=== PATIENT | female | born 1945 | race Caucasian/White ===

== ENCOUNTER 2016-09-02 17:47 | Emergency (ER) | payer MEDICAID, MEDICARE, OTHER ==
[2016-09-02 18:05] VITALS: BP 159/100
--- NOTE | 2016-09-02 18:40 | EDM.PDOC ---
ED HPI HEAD INJURY - General Chief Complaint: Head Injury Stated Complaint: HEAD INJURY Time Seen by Provider: 09/02/16 18:20 Source of Information: Reports: Patient History Limitations: Reports: No limitations - History of Present Illness INITIAL COMMENTS - FREE TEXT/NARRATIVE: 71-year-old female presents for evaluation and treatment of a head injury. Reports the head injury occurred around 1600 this afternoon. Patient was at [facility] have a mammogram done. She said that she was bending over from her wheelchair to grab a magazine. She states that she tumbled out of the wheelchair and struck her head on the carpeted floor. She denies any loss of consciousness and her members the event. She denies any headache, nausea, vomiting, blurry vision, double vision, neck pain, back pain. Patient also complains of some discomfort to the right hand but states that this is just an abrasion. Patient has also noticed an abrasion and hematoma to the left forehead. Patient is on Coumadin. Most recent INR is theraputic at 2.79, 5-1-17. Patient is from the [facility]. She is a full code Location: Reports: frontal - Related Data Allergies/ADRs: Allergies Allergy/AdvReac Type Severity Reaction Status Date / Time latex Allergy Rash Verified 09/02/16 18:06 nitrofurantoin Allergy Sweating Verified 09/02/16 18:06 tree nut Allergy Swollen Verified 09/02/16 18:06 Tongue Home Meds: Home Meds Acetaminophen [Tylenol] 650 mg PO Q4H PRN 09/02/16 [History] B Complex With Vitamin C [Vitamin B-Complex with Vit C] 1 each PO DAILY [History] Calcium Carbonate/Vitamin D3 [Calcium 500 + Vit D 400] 1 each PO BID 09/02/16 [ History] [place] Tar [T-Gel] 1 applic TP ASDIRECTED 09/02/16 [History] Docusate Sodium [Colace] 100 mg PO BID 09/02/16 [History] Fructooligosaccharides/Polydex [Hyfiber with Fos Liquid Packet] 12 gm PO ASDIRECTED 09/02/16 [History] Phenytoin Sodium Extended [Dilantin] 250 mg PO BEDTIME 09/02/16 [History] Psyllium Husk [Metamucil] 1 dose PO DAILY 09/02/16 [History] Ubidecarenone [Coenzyme Q10] 100 mg PO DAILY 09/02/16 [History] Vits A and D/White Pet/Lanolin [A and D Ointment] 1 dose TP ASDIRECTED PRN 09/02 [History] Warfarin [Coumadin] 2.5 mg PO DAILY 09/02/16 [History] atorvaSTATin [Lipitor] 20 mg PO BEDTIME 09/02/16 [History] Past Medical History HEENT History: Reports: Impaired vision Cardiovascular History: Reports: Blood clots/VTE/DVT, High cholesterol, Hypertension, Other (see below) Other Cardiovascular History: anticoagulant use Genitourinary History: Reports: Retention, urinary, UTI, recurrent, Other (see below) Other Genitourinary History: obstructive and reflux uropathy Musculoskeletal History: Reports: Other (see below) Other Musculoskeletal History: spinal stenosis, hemiplegia, hemipareis Neurological History: Reports: CVA, TIA, Other (see below) Other Neuro History: epilepsy Psychiatric History: Reports: Mood swings, Other (see below) Other Psychiatric History: mood disorder Hematologic History: Reports: Other (see below) Other Hematologic History: blood thinners Dermatologic History: Reports: Other (see below) Other Dermatologic History: edema Social & Family History - Family History Family Medical History: Noncontributory - Tobacco Use Smoking Status *Q: Never Smoker - Caffeine Use Caffeine Use: Reports: Coffee - Recreational Drug Use Recreational Drug Use: No ED ROS GENERAL - Review of Systems Review Of Systems: See Below HEENT: Denies: Vision change GI/Abdominal: Denies: Nausea, Vomiting Skin: Reports: wound (abrasion to the left forehead), lumps (left forehead hematoma) Neurological: Denies: Dizziness, Headache, Syncope ED EXAM, HEAD INJURY - Physical Exam Exam: See Below Exam Limited By: No limitations General Appearance: alert, WD/WN, no apparent distress Head: scalp abrasions (right forehead 3 areas all 3 about 2-3 cm in diameter), scalp hematoma (right forehead golf ball size) Nexus Criteria: No: posterior, midline cervical tenderness, evidence of intoxication, altered level of consciousness, focal neurological deficit, painful distracting injuries Eyes: bilateral eye: EOMI, PERRL Ears: normal external exam, normal canal, hearing grossly normal, normal TMs Nose: normal inspection Throat/Mouth: Normal inspection, Normal lips, Normal teeth, Normal gums, Normal oropharynx, Normal voice, No airway compromise Neck: non-tender, full range of motion, normal alignment, normal inspection Respiratory: no respiratory distress, lungs clear, normal breath sounds Cardiovascular: normal peripheral pulses, regular rate, rhythm, no murmur Neurologic: alert, normal mood/affect, other (normal finger to nose testing, plastics plater 5/5 bilaterally) Skin: Normal color, Warm/dry, Other (abrasion with underlying hematoma to the right forehead) - Taylor Coma Score Best Eye Response (Taylor): (4) open spontaneously Best Verbal Response (Riner): (5) oriented Best Motor Response (Riner): (6) obeys commands Course - Vital Signs Last Recorded V/S: Last Vital Signs Temp 36.6 C 09/02/16 18:02 Pulse 89 09/02/16 18:02 Resp 18 09/02/16 18:02 BP 159/100 H 09/02/16 18:02 Pulse Ox 95 09/02/16 18:02 - Orders/Labs/Meds Orders: Active Orders 24 hr Category Date Time Status Head wo Cont [CT] Stat Exams 09/02/16 18:28 Ordered - Radiology Interpretation Free Text/Narrative:: CT of the head without contrast impression per vrad: no acute intracranial findings. CT Results Date: 09/02/16 - Re-Assessments/Exams Free Text/Narrative Re-Assessment/Exam: 09/02/16 19:34 I reviewed a head CT the results with the patient. She is resting comfortably. She is eating dinner. Will discharge home at this time. Departure - Departure Time of Disposition: 19:34 Disposition: Home, Self-Care 01 Condition: good Clinical Impression: Abrasion head, Hematoma Instructions: Head Injury, Adult Referrals: Aliza Bello MD [Primary Care Provider] - Forms: ED Department Discharge Additional Instructions: wash the abrasion with gentle soap and water twice a day. Apply antibacterial ointment to the wound twice a day. Continue with your current plan of care. Followup with your primary care provider as needed. Please return to the ER should your symptoms change or worsen. In particular, we would like to see you for vomiting more than 2 episodes, headaches not related by Tylenol or Motrin, seizures or any other concerning symptoms. - My Orders Last 24 Hours: My Active Orders 09/02/16 18:28 Head wo Cont [CT] Stat - Assessment/Plan Last 24 Hours: My Active Orders 09/02/16 18:28 Head wo Cont [CT] Stat
--- NOTE | 2016-09-05 10:35 | CT ---
Head CT Technique: Multiple axial sections through the brain were obtained. Intravenous contrast was not utilized. Comparison: Previous head CT exam of 03/12/12. Findings: Ventricles along with basal cisterns and sulci over the convexities are moderately prominent. Mild diminished density noted within the periventricular white matter compatible with small vessel ischemic demyelination change. No other abnormal parenchymal densities are seen. No evidence of intracranial hemorrhage. No midline shift or mass effect is seen. Slight soft tissue swelling noted within the left frontal scalp. No underlying calvarial abnormality is seen. Opacified left mastoid sinus is seen which is a chronic finding and likely represents previous surgery. Impression: 1. Incidental findings. Senescent change which appears stable from prior head CT. 2. No acute intracranial abnormality is identified on noncontrast head CT study. Diagnostic code #2 I agree with preliminary report issued by [facility] (report finalized on 09/02/16, 8:29 PM Central Time)
== END 2016-09-02 19:40 | disposition home or self-care (01) ==
LOC: JD.ED 17:47
DX: S00.03XA Contusion of scalp, initial encounter (principal); S00.81XA Abrasion of other part of head, initial encounter; W05.0XXA Fall from non-moving wheelchair, initial encounter; I10 Essential (primary) hypertension; E78.00 Pure hypercholesterolemia, unspecified; Z86.73 Personal history of transient ischemic attack (TIA), and cerebral infarction without residual deficits; Z86.718 Personal history of other venous thrombosis and embolism; Z79.01 Long term (current) use of anticoagulants; Z79.899 Other long term (current) drug therapy; Z88.8 Allergy status to other drugs, medicaments and biological substances; Z91.040 Latex allergy status
CPT/HCPCS: 70450; 70450-26; 99282; 99284-25

== ENCOUNTER 2017-04-03 08:19 | Day surgery (SDC) | payer MEDICAID ==
[~2017-04-03 08:19] MED LIST: Lactated Ringers 1,000 ML IV SCH; Lidocaine 1%/Sod Bicarbonate in NS 8.4% 1 ML Syringe IV PRN; Sodium Chloride 0.9% 10 ML Syringe FLUSH PRN
--- NOTE | 2017-04-03 09:00 | PCM.PREANE ---
Preanesthetic Assessment - Procedure Proposed Procedure: Screening Colonoscopy - Anesthesia/Transfusion/Family Hx Anesthesia History: Prior Anesthesia Without Reaction Family History of Anesthesia Reaction: No Transfusion History: No Prior Transfusion(s) Intubation History: Unknown - Review of Systems General: No Symptoms Pulmonary: No Symptoms Cardiovascular: No Symptoms, Other (Transient bradycardia during previous hospitaliziation. No problems since. ) Gastrointestinal: No Symptoms Neurological: Pre-Existing Deficit, Seizure, Difficulty Walking (Wheelchair) Other: Reports: None, Easy Bleeding, Easy Bruising - Physical Assessment NPO Status Date: 04/02/17 NPO Status Time: 22:00 Pulse: 69 O2 Sat by Pulse Oximetry: 95 Respiratory Rate: 18 Blood Pressure: 142/75 Height: 1.22 m Weight: 62.142 kg ASA Class: 2 Mental Status: Alert & Oriented x3 Airway Class: Mallampati = 3 Dentition: Reports: Partial (Upper Removed) Thyro-Mental Finger Breadths: 3 Mouth Opening Finger Breadths: 3 ROM/Head Extension: Full Lungs: Clear to Auscultation, Normal Respiratory Effort Cardiovascular: Regular Rate, Regular Rhythm - Allergies Allergies/Adverse Reactions: Allergies Allergy/AdvReac Type Severity Reaction Status Date / Time latex Allergy Rash Verified 03/31/17 14:35 nitrofurantoin Allergy Sweating Verified 03/31/17 14:35 tree nut Allergy Swollen Verified 03/31/17 14:35 Tongue - Acknowledgements Anesthesia Type Planned: MAC Pt an Appropriate Candidate for the Planned Anesthesia: Yes Alternatives and Risks of Anesthesia Discussed w Pt/Guardian: Yes Pt/Guardian Understands and Agrees with Anesthesia Plan: Yes PreAnesthesia Questionnaire HEENT History: Reports: Impaired Vision Cardiovascular History: Reports: Hypertension Other Cardiovascular History: Thrombosis, SA Node Dysfunction Other Respiratory History: Embolism Gastrointestinal History: Reports: Other (See Below) Other Gastrointestinal History: Internal Hemorrhoids, Intestinal infection related to C. Diff. Genitourinary History: Reports: Retention, Urinary, UTI, Recurrent, Other (See Below) Other Genitourinary History: obstructive and reflux uropathy Musculoskeletal History: Reports: Other (See Below) Other Musculoskeletal History: Dwarfism Neurological History: Reports: Seizure Other Neuro History: Spinal Stenosis Psychiatric History: Reports: Mood Swings, Other (See Below) Other Psychiatric History: mood disorder Other Endocrine/Metabolic History: Dwarfism Hematologic History: Reports: Other (See Below) Other Hematologic History: blood thinners Dermatologic History: Reports: Other (See Below) Other Dermatologic History: edema - Past Surgical History GI Surgical History: Reports: Colon Other Female Surgeries/Procedures: Retention of urine (does self catheterize) Musculoskeletal Surgical History: Reports: Carpal Tunnel, Other (See Below) Other Musculoskeletal Surgeries/Procedures:: Laminectomy - SUBSTANCE USE Smoking Status *Q: Never Smoker Recreational Drug Use History: No - HOME MEDS Home Medications: Home Meds Acetaminophen [Tylenol] 650 mg PO Q4H PRN 09/02/16 [History] B Complex With Vitamin C [Vitamin B-Complex with Vit C] 1 each PO DAILY [History] Calcium Carbonate/Vitamin D3 [Calcium 500 + Vit D 400] 1 each PO BID 09/02/16 [ History] Docusate Sodium [Colace] 100 mg PO BID 09/02/16 [History] Phenytoin Sodium Extended [Dilantin] 100 mg PO BEDTIME 09/02/16 [History] Ubidecarenone [Coenzyme Q10] 100 mg PO DAILY 09/02/16 [History] Warfarin [Coumadin] 2.5 mg PO DAILY 09/02/16 [History] atorvaSTATin [Lipitor] 20 mg PO BEDTIME 09/02/16 [History] Alendronate Sodium [Fosamax] 70 mg PO ASDIRECTED 03/31/17 [History] Phenytoin [Dilantin] 50 mg CHEW BEDTIME 03/31/17 [History] - CURRENT (IN HOUSE) MEDS Current Meds: Current Medications Lactated Ringer's (Ringers, Lactated) 1,000 mls @ 125 mls/hr IV ASDIRECTED HO Stop: 04/03/17 18:00 Lidocaine/Sodium Bicarbonate (Buffered Lidocaine 1% In Ns 8.4%) 0.25 ml IV ONETIME PRN PRN Reason: Prior to IV Start Stop: 04/03/17 18:00 Sodium Chloride (Saline Flush) 10 ml FLUSH ASDIRECTED PRN PRN Reason: Keep Vein Open Stop: 04/03/17 18:00
[2017-04-03] MEDS ORDERED: Propofol 200 MG/20 ML SDV ONE (10:14)
[2017-04-03] MEDS ORDERED: Midazolam 1 MG/ML 2 ML SDV ONE (10:15)
[2017-04-03] MEDS ORDERED: Lidocaine 1% 4 ML ONE (10:18)
--- NOTE | 2017-04-03 10:40 | PCM.OPNOTE ---
- General Post-Op/Procedure Note Date of Surgery/Procedure: 04/03/17 Operative Procedure(s): colonoscopy to cecum Pre Op Diagnosis: screening colonosocopy Post-Op Diagnosis: Same Anesthesia Technique: MAC Primary Surgeon: Venkat Robertson EBL in mLs: 0 Complications: None Condition: Good
[2017-04-03 11:00] VITALS: BP 94/65
--- NOTE | 2017-04-04 08:51 | OR ---
DATE OF OPERATION: 04/03/2017 SURGEON: Venkat Robertson MD PREOPERATIVE DIAGNOSIS: Screening colonoscopy. POSTOPERATIVE DIAGNOSIS: Screening colonoscopy. OPERATION PERFORMED: Colonoscopy to the cecum. FINDINGS: Normal study. RECOMMENDATIONS: Repeat colonoscopy in 10 years. ANESTHESIA: Procedure done under IV sedation. DESCRIPTION OF PROCEDURE: The patient was taken to the endoscopy room, placed in a supine position, connected to monitoring equipment, and given IV sedation. Perianal area was inspected and was normal. Rectal exam showed good sphincter tone. A video Olympus colonoscope was then introduced into the rectum and threaded up without problem to the cecum, where the appendicular orifice was seen. Prep was excellent, [place] cleansing score grade A, and the scope was slowly withdrawn showing the cecum, ascending colon, transverse colon, descending colon, sigmoid colon, and rectum. Retroflexed view was done. The patient tolerated the procedure, sent to recovery room in a stable condition, and will be followed up in the clinic as needed. ESTIMATED BLOOD LOSS: MMODAL /[id number]
== END 2017-04-03 11:50 | disposition home or self-care (01) ==
LOC: JD.SDS 08:19
PROVIDERS: ATTEND Surgery
DX: Z12.11 Encounter for screening for malignant neoplasm of colon (principal); E34.3 Short stature due to endocrine disorder; I69.951 Hemiplegia and hemiparesis following unspecified cerebrovascular disease affecting right dominant side; G40.909 Epilepsy, unspecified, not intractable, without status epilepticus; I10 Essential (primary) hypertension; M48.00 Spinal stenosis, site unspecified; F34.89 Other specified persistent mood disorders; R33.9 Retention of urine, unspecified; Z79.01 Long term (current) use of anticoagulants; Z79.83 Long term (current) use of bisphosphonates; Z79.899 Other long term (current) drug therapy; Z91.040 Latex allergy status; Z91.018 Allergy to other foods; Z88.1 Allergy status to other antibiotic agents; Z86.718 Personal history of other venous thrombosis and embolism; Z87.440 Personal history of urinary (tract) infections; Z96.0 Presence of urogenital implants; Z98.890 Other specified postprocedural states
CPT/HCPCS: 45378; J2250; J7120; 00810; J2704

== ENCOUNTER 2017-06-13 18:16 | Inpatient (IN) | payer MEDICAID, MEDICARE ==
[2017-06-13] MEDS ORDERED: Sodium Chloride 0.9% 10 ML Syringe FLUSH PRN (18:59)
[2017-06-13] MEDS ORDERED: Sodium Chloride 0.9% 1,000 ML IV ONE (18:59)
[2017-06-13] MEDS ORDERED: Acetaminophen 325 MG Tab PO ONE (21:00)
[2017-06-13] MEDS ORDERED: cefTRIAXone 1 GM in Sodium Chloride 0.9% 100 ML IV ONE (21:03)
--- NOTE | 2017-06-13 22:06 | EDM.PDOC ---
ED HPI GENERAL MEDICAL PROBLEM - General Chief Complaint: Respiratory Problem Stated Complaint: FEVER Time Seen by Provider: 06/13/17 19:05 Source of Information: Reports: Patient History Limitations: Reports: No Limitations - History of Present Illness INITIAL COMMENTS - FREE TEXT/NARRATIVE: 72-year-old female presents from [facility] for evaluation and treatment of cough and fever. Reportedly she has been ill for the last 2 to 3 days. Patient reports current symptoms of a cough, fevers, chills, fatigue, sore throat and malaise. Denies any ear pain, nausea, vomiting or abdominal pain. Reports her temperature was 104.0 at [facility]. Patient did get an influenza vaccine this season. Treatments PERSONAL CHEF: Reports: Acetaminophen Other Treatments PERSONAL CHEF: 1700 - Related Data Allergies Allergy/AdvReac Type Severity Reaction Status Date / Time latex Allergy Rash Verified 06/13/17 18:36 tree nut Allergy Swollen Verified 06/13/17 18:36 Tongue nitrofurantoin AdvReac Sweating Verified 06/13/17 18:36 Home Meds: Home Meds Acetaminophen [Tylenol] 650 mg PO Q4H PRN 09/02/16 [History] B Complex With Vitamin C [Vitamin B-Complex with Vit C] 1 each PO DAILY [History] Calcium Carbonate/Vitamin D3 [Calcium 500 + Vit D 400] 1 each PO BID 09/02/16 [ History] Docusate Sodium [Colace] 100 mg PO BID 09/02/16 [History] Ubidecarenone [Coenzyme Q10] 100 mg PO DAILY 09/02/16 [History] Warfarin [Coumadin] 2.5 mg PO SUMOTUWETHSA 09/02/16 [History] atorvaSTATin [Lipitor] 20 mg PO BEDTIME 09/02/16 [History] Phenytoin [Dilantin] 250 mg CHEW BEDTIME 03/31/17 [History] Alendronate Sodium [Fosamax] 70 mg PO WEEKLY 06/13/17 [History] Warfarin [Coumadin] 1.25 mg PO FR 06/13/17 [History] guaiFENesin/Dextromethorphan [Robitussin Cough-Chest Dm Liq] 10 ml PO ONETIME [History] Past Medical History HEENT History: Reports: Impaired Vision Cardiovascular History: Reports: Hypertension Other Cardiovascular History: Thrombosis, SA Node Dysfunction Other Respiratory History: Embolism Gastrointestinal History: Reports: Other (See Below) Other Gastrointestinal History: Internal Hemorrhoids, Intestinal infection related to C. Diff. Genitourinary History: Reports: Retention, Urinary, UTI, Recurrent, Other (See Below) Other Genitourinary History: obstructive and reflux uropathy Musculoskeletal History: Reports: Other (See Below) Other Musculoskeletal History: Dwarfism Neurological History: Reports: Seizure Other Neuro History: Spinal Stenosis Psychiatric History: Reports: Mood Swings, Other (See Below) Other Psychiatric History: mood disorder Other Endocrine/Metabolic History: Dwarfism Hematologic History: Reports: Other (See Below) Other Hematologic History: blood thinners Dermatologic History: Reports: Other (See Below) Other Dermatologic History: edema - Past Surgical History GI Surgical History: Reports: Colon Other Female Surgeries/Procedures: Retention of urine (does self catheterize) Musculoskeletal Surgical History: Reports: Carpal Tunnel, Other (See Below) Other Musculoskeletal Surgeries/Procedures:: Laminectomy Social & Family History - Family History Family Medical History: Noncontributory - Tobacco Use Smoking Status *Q: Never Smoker - Caffeine Use Caffeine Use: Reports: Coffee - Recreational Drug Use Recreational Drug Use: No Drug Use in Last 12 Months: No ED ROS GENERAL - Review of Systems Review Of Systems: See Below Constitutional: Reports: Fever, Chills, Malaise HEENT: Reports: Throat Pain. Denies: Ear Pain Respiratory: Reports: Cough, Sputum GI/Abdominal: Denies: Abdominal Pain, Nausea, Vomiting ED EXAM, GENERAL - Physical Exam Exam: See Below Exam Limited By: No Limitations General Appearance: Alert, WD/WN, Mild Distress Eye Exam: Right Eye: Conjunctival Injection Ears: Normal External Exam, Other (TMs obscured by cerumen) Nose: Normal Inspection Throat/Mouth: Normal Inspection, Normal Lips, Normal Voice, No Airway Compromise Respiratory/Chest: No Respiratory Distress Cardiovascular: Normal Peripheral Pulses, Tachycardia, Systolic Murmur (grade 2 systolic heart murmur) GI/Abdominal: Soft, Non-Tender Neurological: Alert, Oriented, Normal Cognition Psychiatric: Normal Affect, Normal Mood Skin Exam: Warm, Dry, Normal Color Course - Vital Signs Last Recorded V/S: Last Vital Signs Temp 38.7 C H 06/13/17 21:12 Pulse 110 H 06/13/17 18:36 Resp BP 110/63 06/13/17 18:36 Pulse Ox 93 L 06/13/17 18:36 - Orders/Labs/Meds Orders: Active Orders 24 hr Category Date Time Status Cardiac Monitoring [RC] . DIRECTED Care 06/13/17 18:59 Active Peripheral IV Care [RC] . DIRECTED Care 06/13/17 18:59 Active Chest 2V [CR] Stat Exams 06/13/17 18:59 Taken CULTURE BLOOD [BC] Stat Lab 06/13/17 19:15 Received CULTURE BLOOD [BC] Stat Lab 06/13/17 19:15 Received CULTURE STREP A CONFIRMATION [RM] Stat Lab 06/13/17 19:27 Results CULTURE URINE [] Stat Lab 06/13/17 22:35 Ordered STREP SCRN A RAPID W CULT CONF [] Stat Lab 06/13/17 19:27 Results Sodium Chloride 0.9% [Normal Saline] 1,000 ml Med 06/13/17 18:59 Active IV ONETIME Sodium Chloride 0.9% [Saline Flush] Med 06/13/17 18:59 Active 10 ml FLUSH ASDIRECTED PRN Blood Culture x2 Reflex Set [OM.PC] Stat Oth 06/13/17 18:59 Ordered Peripheral IV Insertion Adult [OM.PC] Routine Oth 06/13/17 18:59 Ordered Medication Orders Sodium Chloride (Normal Saline) 1,000 mls @ 100 mls/hr IV ONETIME ONE Stop: 06/14/17 04:58 Last Admin: 06/13/17 19:22 Dose: 100 mls/hr Sodium Chloride (Saline Flush) 10 ml FLUSH ASDIRECTED PRN PRN Reason: Keep Vein Open Last Admin: 06/13/17 19:22 Dose: 10 ml Labs: Laboratory Tests 06/13/17 06/13/17 06/13/17 Range/Units 19:15 19:15 19:15 WBC 12.77 H (3.98-10.04) K/mm3 RBC 4.08 (3.98-5.22) M/mm3 Hgb 12.3 (11.2-15.7) gm/L Hct 37.5 (34.1-44.9) % MCV 91.9 (79.4-94.8) fl MCH 30.1 (25.6-32.2) pg MCHC 32.8 (32.2-35.5) g/dl RDW Std Deviation 46.1 (36.4-46.3) fL Plt Count 250 (182-369) K/mm3 MPV 11.0 (9.4-12.3) fl Neutrophils % (Manual) 85 H (40-60) % Band Neutrophils % 1 (0-10) % Lymphocytes % (Manual) 6 L (20-40) % Atypical Lymphs % 0 % Monocytes % (Manual) 8 (2-10) % Eosinophils % (Manual) 0 L (0.7-5.8) % Basophils % (Manual) 0 L (0.1-1.2) Platelet Estimate Adequate Plt Morphology Comment Normal RBC Morph Comment Normal PT (8.0-13.0) SECONDS INR APTT (22-36) SECONDS Sodium 139 (136-145) mEq/L Potassium 4.3 (3.5-5.1) mEq/L Chloride 103 (98-107) mEq/L Carbon Dioxide 25 (21-32) mEq/L Anion Gap 15.3 H (5-15) BUN 24 H (7-18) mg/dL Creatinine 0.6 (0.55-1.02) mg/dL Est Cr Clr Drug Dosing 59.98 mL/min Estimated GFR (MDRD) > 60 (>60) mL/min BUN/Creatinine Ratio 40.0 H (14-18) Glucose 141 H (83-115) mg/dL Lactic Acid 1.1 (0.4-2.0) mmol/L Calcium 8.9 (8.5-10.1) mg/dL Total Bilirubin 0.5 (0.2-1.0) mg/dL AST 33 (15-37) U/L ALT 26 (14-59) U/L Alkaline Phosphatase 103 (46-116) U/L C-Reactive Protein 45.2 H* (<1.0) mg/dL Total Protein 6.7 (6.4-8.2) g/dl Albumin 2.6 L (3.4-5.0) g/dl Globulin 4.1 gm/dL Albumin/Globulin Ratio 0.6 L (1-2) Urine Color (Yellow) Urine Appearance (Clear) Urine pH (5.0-8.0) Ur Specific [place] (1.005-1.030) Urine Protein (Negative) Urine Glucose (UA) (Negative) Urine Ketones (Negative) Urine Occult Blood (Negative) Urine Nitrite (Negative) Urine Bilirubin (Negative) Urine Urobilinogen (0.2-1.0) Ur Leukocyte Esterase (Negative) Urine RBC (0-5) /hpf Urine WBC (0-5) /hpf Ur Epithelial Cells (0-5) /hpf Urine Bacteria (FEW) /hpf Urine Mucus (FEW) /hpf Mycoplasma pneumon IgM (NEGATIVE) 06/13/17 06/13/17 06/13/17 Range/Units 19:25 19:25 20:50 WBC (3.98-10.04) K/mm3 RBC (3.98-5.22) M/mm3 Hgb (11.2-15.7) gm/L Hct (34.1-44.9) % MCV (79.4-94.8) fl MCH (25.6-32.2) pg MCHC (32.2-35.5) g/dl RDW Std Deviation (36.4-46.3) fL Plt Count (182-369) K/mm3 MPV (9.4-12.3) fl Neutrophils % (Manual) (40-60) % Band Neutrophils % (0-10) % Lymphocytes % (Manual) (20-40) % Atypical Lymphs % % Monocytes % (Manual) (2-10) % Eosinophils % (Manual) (0.7-5.8) % Basophils % (Manual) (0.1-1.2) Platelet Estimate Plt Morphology Comment RBC Morph Comment PT 31.7 H (8.0-13.0) SECONDS INR 2.73 APTT 63 H (22-36) SECONDS Sodium (136-145) mEq/L Potassium (3.5-5.1) mEq/L Chloride (98-107) mEq/L Carbon Dioxide (21-32) mEq/L Anion Gap (5-15) BUN (7-18) mg/dL Creatinine (0.55-1.02) mg/dL Est Cr Clr Drug Dosing mL/min Estimated GFR (MDRD) (>60) mL/min BUN/Creatinine Ratio (14-18) Glucose (83-115) mg/dL Lactic Acid (0.4-2.0) mmol/L Calcium (8.5-10.1) mg/dL Total Bilirubin (0.2-1.0) mg/dL AST (15-37) U/L ALT (14-59) U/L Alkaline Phosphatase (46-116) U/L C-Reactive Protein (<1.0) mg/dL Total Protein (6.4-8.2) g/dl Albumin (3.4-5.0) g/dl Globulin gm/dL Albumin/Globulin Ratio (1-2) Urine Color Yellow (Yellow) Urine Appearance Slt cloudy H (Clear) Urine pH 5.5 (5.0-8.0) Ur Specific [place] 1.025 (1.005-1.030) Urine Protein 2+ H (Negative) Urine Glucose (UA) Negative (Negative) Urine Ketones Trace H (Negative) Urine Occult Blood 2+ H (Negative) Urine Nitrite Positive H (Negative) Urine Bilirubin Negative (Negative) Urine Urobilinogen 0.2 (0.2-1.0) Ur Leukocyte Esterase 1+ H (Negative) Urine RBC 10-20 H (0-5) /hpf Urine WBC 40-50 H (0-5) /hpf Ur Epithelial Cells 20-30 H (0-5) /hpf Urine Bacteria Moderate H (FEW) /hpf Urine Mucus Few (FEW) /hpf Mycoplasma pneumon IgM Negative (NEGATIVE) Meds: Medications Generic Name Dose Route Start Last Admin Trade Name Freq PRN Reason Stop Dose Admin Sodium Chloride 1,000 mls @ 100 mls/hr 06/13/17 18:59 06/13/17 19:22 Normal Saline IV 06/14/17 04:58 100 mls/hr ONETIME ONE Administration Sodium Chloride 10 ml 06/13/17 18:59 06/13/17 19:22 Saline Flush FLUSH 10 ml ASDIRECTED PRN Administration Keep Vein Open Discontinued Medications Generic Name Dose Route Start Last Admin Trade Name Freq PRN Reason Stop Dose Admin Acetaminophen 650 mg 06/13/17 21:00 06/13/17 21:12 Tylenol PO 06/13/17 21:01 650 mg NOW ONE Administration Ceftriaxone Sodium 1 gm/ 100 mls @ 200 mls/hr 06/13/17 21:03 06/13/17 21:12 Sodium Chloride IV 06/13/17 21:32 200 mls/hr ONETIME ONE Administration - Radiology Interpretation Free Text/Narrative:: chest xray shows a right lower lobe pneumonia - Re-Assessments/Exams Free Text/Narrative Re-Assessment/Exam: 06/13/17 22:01 Influenza returned negative. Rapid strep returned negative. Blood cultures are pending. UA showed a urinary tract infection. Urine culture was also sent. Given the patient's tachycardia and fever I feel she should be admitted. She does meet criteria for sepsis. Rocephin has been started. Will treat her for pneumonia and a urinary tract infection. Discussed the case with Dr. Tobias who agrees to the admission. Departure - Departure Time of Disposition: 22:12 Disposition: Admitted As Inpatient 65 Condition: Fair Clinical Impression: Pneumonia, UTI (urinary tract infection) - Discharge Information Referrals: Aliza Bello MD [Primary Care Provider] - Forms: ED Department Discharge Additional Instructions: Patient to be admitted to [facility] with telemetry under Dr. Tobias. She'll be admitted for pneumonia and a urinary tract infection rule out sepsis. - My Orders Last 24 Hours: My Active Orders 06/13/17 18:59 Cardiac Monitoring [RC] . DIRECTED Peripheral IV Care [RC] . DIRECTED Chest 2V [CR] Stat Sodium Chloride 0.9% [Normal Saline] 1,000 ml IV ONETIME Sodium Chloride 0.9% [Saline Flush] 10 ml FLUSH ASDIRECTED PRN Blood Culture x2 Reflex Set [OM.PC] Stat Peripheral IV Insertion Adult [OM.PC] Routine 06/13/17 19:15 CULTURE BLOOD [BC] Stat CULTURE BLOOD [BC] Stat 06/13/17 19:27 CULTURE STREP A CONFIRMATION [RM] Stat STREP SCRN A RAPID W CULT CONF [RM] Stat 06/13/17 22:35 CULTURE URINE [RM] Stat - Assessment/Plan Last 24 Hours: My Active Orders 06/13/17 18:59 Cardiac Monitoring [RC] . DIRECTED Peripheral IV Care [RC] . DIRECTED Chest 2V [CR] Stat Sodium Chloride 0.9% [Normal Saline] 1,000 ml IV ONETIME Sodium Chloride 0.9% [Saline Flush] 10 ml FLUSH ASDIRECTED PRN Blood Culture x2 Reflex Set [OM.PC] Stat Peripheral IV Insertion Adult [OM.PC] Routine 06/13/17 19:15 CULTURE BLOOD [BC] Stat CULTURE BLOOD [BC] Stat 06/13/17 19:27 CULTURE STREP A CONFIRMATION [RM] Stat STREP SCRN A RAPID W CULT CONF [RM] Stat 02/13/18 22:35 CULTURE URINE [RM] Stat
[2017-06-14] MEDS: Metoprolol Tartrate 5 MG/5 ML SDV IVPUSH PRN ×3 (01:57→19:39)
[2017-06-14] MEDS: Acetaminophen 325 MG Tab PO PRN ×2 (05:57→18:02)
--- NOTE | 2017-06-14 06:44 | PCM.HP ---
H&P History of Present Illness - General Date of Service: 06/14/17 Admit Problem/Dx: UTI/Pneumonia Source of Information: Patient, Other (ED records) - History of Present Illness Initial Comments - Free Text/Narative: Indira is a 72-year-old female presented via ambulance from from [facility] for evaluation and treatment of cough and fever. Reportedly she has been ill for the last 2 to 3 days. Patient reports current symptoms of a cough, fevers, chills, fatigue, sore throat and malaise. Denies any ear pain, nausea, vomiting or abdominal pain. Reports her temperature was 104.0 at [facility]. She does straight cath PRN for many years for some sort of urethral obstructive process. Evaluation in ED: Influenza returned negative. Rapid strep returned negative. Blood cultures are pending. UA showed a urinary tract infection. Urine culture was also sent. CXR reveals likely evolving pneumonia. Given the patient's tachycardia and fever and UTI she will be admitted to MST unit. She does meet criteria for sepsis. Rocephin has been started in ED. She is Full code status. Dr. Tiffany Bello is her PCP with [facility] in [place]. - Related Data Allergies/Adverse Reactions: Allergies Allergy/AdvReac Type Severity Reaction Status Date / Time latex Allergy Rash Verified 06/13/17 18:36 tree nut Allergy Swollen Verified 06/13/17 18:36 Tongue nitrofurantoin AdvReac Sweating Verified 06/13/17 18:36 Home Medications: Home Meds Acetaminophen [Tylenol] 650 mg PO Q4H PRN 09/02/16 [History] B Complex With Vitamin C [Vitamin B-Complex with Vit C] 1 each PO DAILY [History] Calcium Carbonate/Vitamin D3 [Calcium 500 + Vit D 400] 1 each PO BID 09/02/16 [ History] Docusate Sodium [Colace] 100 mg PO BID 09/02/16 [History] Ubidecarenone [Coenzyme Q10] 100 mg PO DAILY 09/02/16 [History] Warfarin [Coumadin] 2.5 mg PO SUMOTUWETHSA 09/02/16 [History] atorvaSTATin [Lipitor] 20 mg PO BEDTIME 09/02/16 [History] Phenytoin [Dilantin] 250 mg CHEW BEDTIME 03/31/17 [History] Alendronate Sodium [Fosamax] 70 mg PO WEEKLY 06/13/17 [History] Warfarin [Coumadin] 1.25 mg PO FR 06/13/17 [History] guaiFENesin/Dextromethorphan [Robitussin Cough-Chest Dm Liq] 10 ml PO ONETIME [History] Past Medical History HEENT History: Reports: Impaired Vision Cardiovascular History: Reports: Hypertension Other Cardiovascular History: Thrombosis, SA Node Dysfunction, tachy arrhythmia Respiratory History: Reports: PE Other Respiratory History: Embolism Gastrointestinal History: Reports: Other (See Below) Other Gastrointestinal History: Internal Hemorrhoids, Intestinal infection related to C. Diff. Genitourinary History: Reports: Retention, Urinary, UTI, Recurrent, Other (See Below) Other Genitourinary History: obstructive and reflux uropathy, chronic lucero Musculoskeletal History: Reports: Other (See Below) Other Musculoskeletal History: Dwarfism Neurological History: Reports: Seizure, TIA Other Neuro History: Spinal Stenosis Psychiatric History: Reports: Mood Swings, Other (See Below) Other Psychiatric History: mood disorder Other Endocrine/Metabolic History: Dwarfism Hematologic History: Reports: Other (See Below) Other Hematologic History: blood thinners Dermatologic History: Reports: Other (See Below) Other Dermatologic History: edema - Past Surgical History GI Surgical History: Reports: Colon, Colonoscopy Musculoskeletal Surgical History: Reports: Carpal Tunnel, Other (See Below) Other Musculoskeletal Surgeries/Procedures:: Laminectomy Social & Family History - Family History Family Medical History: Noncontributory - Tobacco Use Smoking Status *Q: Never Smoker Second Hand Smoke Exposure: No - Caffeine Use Caffeine Use: Reports: Coffee - Recreational Drug Use Recreational Drug Use: No Drug Use in Last 12 Months: No H&P Review of Systems - Review of Systems: Review Of Systems: See Below General: Reports: Fever (febrile overnight), Malaise, Weakness. Denies: Chills (resolved) HEENT: Reports: No Symptoms. Denies: Headaches Pulmonary: Reports: Shortness of Breath, Wheezing, Cough Cardiovascular: Reports: No Symptoms. Denies: Chest Pain Gastrointestinal: Reports: No Symptoms. Denies: Abdominal Pain, Diarrhea, Nausea, Vomiting Genitourinary: Reports: Other (lucero cath present - placed in ED) Psychiatric: Reports: No Symptoms Neurological: Reports: No Symptoms. Denies: Dizziness, Headache Exam - Exam Exam: See Below - Vital Signs Vital Signs: Last Vital Signs Temp 102.3 F H 06/14/17 05:57 Pulse 99 06/14/17 04:00 Resp 22 H 06/14/17 04:00 BP 113/59 L 06/14/17 04:00 Pulse Ox 94 L 06/14/17 04:00 Weight: 139 lb 8 oz - Exam Quality Assessment: Urinary Catheter, DVT Prophylaxis General: Alert, Cooperative HEENT: Conjunctiva Clear, EOMI, Mucosa Moist & [place], Pupils Equal Neck: Supple Lungs: Normal Respiratory Effort, Decreased Breath Sounds, Wheezing Cardiovascular: Regular Rate, Regular Rhythm, Normal S1, Normal S2 GI/Abdominal Exam: Normal Bowel Sounds, Soft, Non-Tender (Female) Exam: Deferred, Other (lucero cath) Rectal (Female) Exam: Deferred Extremities: No Pedal Edema, Normal Capillary Refill, Other (short but no edema , clubbing or cyanosis) Peripheral Pulses: 2+: Dorsalis Pedis (L), Dorsalis Pedis (R) Skin: Warm, Dry, Intact Neurological: Cranial Nerves Intact, Strength Equal Bilateral Neuro Extensive - Mental Status: Alert, Oriented x3, Normal Mood/Affect, Normal Cognition, Other (very pleasant and talkative this morning) Psychiatric: Alert, Normal Affect, Normal Mood - Patient Data Lab Results Last 24 hrs: Laboratory Results - last 24 hr 06/14/17 Range/Units 00:32 MRSA (PCR) Negative Result Diagrams: 06/14/17 05:15 06/14/17 05:15 *Q Meaningful Use (ADM) - VTE *Q VTE Criteria *Q: - Stroke *Q Stroke Criteria *Q: - AMI *Q AMI Criteria *Q: - Problem List (1) UTI (urinary tract infection) SNOMED Code(s): 43486236 ICD Code: N39.0 - URINARY TRACT INFECTION, SITE NOT SPECIFIED Status: Acute Priority: High Current Visit: Yes (2) Pneumonia SNOMED Code(s): 364272885 ICD Code: J18.9 - PNEUMONIA, UNSPECIFIED ORGANISM Status: Acute Priority : High Current Visit: Yes Qualifiers: Pneumonia type: due to unspecified organism Laterality: bilateral Lung location: lower lobe of lung Qualified Code(s): J18.9 - Pneumonia, unspecified organism (3) Febrile illness, acute SNOMED Code(s): 764914187 ICD Code: R50.9 - FEVER, UNSPECIFIED Status: Acute Priority: High Current Visit: Yes (4) Tachycardia SNOMED Code(s): 3310736 ICD Code: R00.0 - TACHYCARDIA, UNSPECIFIED Status: Acute Priority: High Current Visit: Yes (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 SNOMED Code(s): 858504355 ICD Code: Z79.01 - DETENTION (CURRENT) USE OF ANTICOAGULANTS Status: Chronic Priority: Medium Current Visit: Yes Problem List Initiated/Reviewed/Updated: Yes Orders Last 24hrs: Active Orders 24 hr Category Date Time Status Patient Status [ADT] Routine ADT 06/14/17 01:41 Active Communication Order [RC] ROUTINE Care 06/14/17 06:23 Ordered IS (RT) [RT Incentive Spirometry] [RC] Q2HWA Care 06/14/17 06:21 Ordered OT Evaluation and Treatment [CONS] Routine Cons 06/14/17 06:21 Ordered PT Evaluation and Treatment [CONS] Routine Cons 06/14/17 06:21 Ordered BASIC METABOLIC PANEL,BMP [CHEM] DAILY Lab 06/15/17 05:00 Ordered BASIC METABOLIC PANEL,BMP [CHEM] DAILY Lab 06/16/17 05:00 Ordered BASIC METABOLIC PANEL,BMP [CHEM] DAILY Lab 06/17/17 05:00 Ordered BASIC METABOLIC PANEL,BMP [CHEM] DAILY Lab 06/18/17 05:00 Ordered C-REACTIVE PROTEIN [CHEM] DAILY Lab 06/15/17 05:00 Ordered C-REACTIVE PROTEIN [CHEM] DAILY Lab 06/16/17 05:00 Ordered C-REACTIVE PROTEIN [CHEM] DAILY Lab 06/17/17 05:00 Ordered C-REACTIVE PROTEIN [CHEM] DAILY Lab 06/18/17 05:00 Ordered C-REACTIVE PROTEIN [CHEM] Routine Lab 06/14/17 05:00 Ordered CBC W/O DIFF,HEMOGRAM [HEME] Routine Lab 06/14/17 05:00 Ordered CBC WITH AUTO DIFF [HEME] DAILY Lab 06/15/17 05:00 Ordered CBC WITH AUTO DIFF [HEME] DAILY Lab 06/16/17 05:00 Ordered CBC WITH AUTO DIFF [HEME] DAILY Lab 06/17/17 05:00 Ordered CBC WITH AUTO DIFF [HEME] DAILY Lab 06/18/17 05:00 Ordered COMPREHENSIVE METABOLIC PN,CMP [CHEM] Routine Lab 06/14/17 05:00 Ordered DILANTIN,PHENYTOIN [CHEM] Routine Lab 06/14/17 05:00 Ordered INR,PT,PROTHROMBIN TIME [COAG] DAILY Lab 06/14/17 06:22 Ordered INR,PT,PROTHROMBIN TIME [COAG] DAILY Lab 06/15/17 06:22 Ordered INR,PT,PROTHROMBIN TIME [COAG] DAILY Lab 06/16/17 06:22 Ordered INR,PT,PROTHROMBIN TIME [COAG] DAILY Lab 06/17/17 06:22 Ordered INR,PT,PROTHROMBIN TIME [COAG] DAILY Lab 06/18/17 06:22 Ordered MAGNESIUM [CHEM] DAILY Lab 06/15/17 05:00 Ordered MAGNESIUM [CHEM] DAILY Lab 06/16/17 05:00 Ordered MAGNESIUM [CHEM] DAILY Lab 06/17/17 05:00 Ordered MAGNESIUM [CHEM] DAILY Lab 06/18/17 05:00 Ordered MAGNESIUM [CHEM] Routine Lab 06/14/17 06:16 Ordered RESPIRATORY PANEL BY PCR [MREF] Routine Lab 06/14/17 06:40 Ordered Acetaminophen [Tylenol] Med 06/14/17 05:26 Active 650 mg PO Q6H PRN Azithromycin [Zithromax] 500 mg Med 06/14/17 06:45 Ordered Sodium Chloride 0.9% [Normal Saline] 250 ml IV Q24H Docusate Sodium [Colace] Med 06/14/17 09:00 Ordered 100 mg PO BID Famotidine [Pepcid] Med 06/14/17 09:00 Ordered 20 mg PO BID Metoprolol Tartrate [Lopressor] Med 06/14/17 01:41 Active 5 mg IVPUSH Q4H PRN Phenytoin [Dilantin] Med 06/14/17 21:00 Pending 250 mg CHEW BEDTIME Saccharomyces Boulardii [Florastor] Med 06/14/17 09:00 Ordered 250 mg PO BID Sodium Chloride 0.9% @ 100 MLS/HR(1000ml Bag) Med 06/14/17 06:30 Ordered Sodium Chloride 0.9% [Normal Saline] 1,000 ml IV ASDIRECTED Vitamin B Complex with C [Super B With Vitamin C] Med 06/14/17 09:00 Ordered 1 each PO DAILY Warfarin Pharmacy to Dose [Pharmacy to Dose - Warfarin] Med 06/14/17 06:30 Ordered 1 dose .XX ASDIRECTED Warfarin [Coumadin] Med 06/16/17 06:18 Ordered 1.25 mg PO FR Warfarin [Coumadin] Med 06/14/17 06:30 Ordered 2.5 mg PO SUMOTUWETHSA atorvaSTATin Med 06/14/17 21:00 Ordered 20 mg PO BEDTIME cefTRIAXone [Rocephin] 1 gm Med 06/14/17 06:30 Ordered Sodium Chloride 0.9% [Normal Saline] 100 ml IV Q24H Resuscitation Status Routine Resus Stat 06/14/17 02:20 Ordered Medication Orders Acetaminophen (Tylenol) 650 mg PO Q6H PRN PRN Reason: fever Last Admin: 06/14/17 05:57 Dose: 650 mg Docusate Sodium (Colace) 100 mg PO BID HO Famotidine (Pepcid) 20 mg PO BID HO Ceftriaxone Sodium 1 gm/ (Sodium Chloride) 100 mls @ 200 mls/hr IV Q24H HO Sodium Chloride (Normal Saline) 1,000 mls @ 100 mls/hr IV ASDIRECTED HO Azithromycin 500 mg/ Sodium (Chloride) 250 mls @ 250 mls/hr IV Q24H HO Metoprolol Tartrate (Lopressor) 5 mg IVPUSH Q4H PRN PRN Reason: Tachycardia Last Admin: 06/14/17 01:57 Dose: 5 mg Phenytoin Sodium (Dilantin) 250 mg CHEW BEDTIME HO Saccharomyces Boulardii (Florastor) 250 mg PO BID HO Simvastatin (Zocor) 20 mg PO BEDTIME HO Sodium Chloride (Saline Flush) 10 ml FLUSH ASDIRECTED PRN PRN Reason: Keep Vein Open Last Admin: 06/13/17 19:22 Dose: 10 ml Vitamin B Complex/Vitamin C (Super B With Vitamin C) 1 cap PO DAILY HO Warfarin Sodium (Coumadin) 1.25 mg PO FR HO Warfarin Sodium (Coumadin) 2.5 mg PO SUMOTUWETHSA HO Warfarin Sodium (Pharmacy To Dose - Warfarin) 1 dose .XX ASDIRECTED [facility] Assessment/Plan Comment:: I/P: AUTI -Risk factors: self cath daily due to structural problem, immobility, [place] resident - pending -Rocephin started in ED, will continue -Cont lucero cath for now -IVF for hydration -Probiotic BID -Antipyretics PRN -Follow CRP which is significantly elevated at 45.2-->46.2 -WBC 12K-->10K Pneumonia -? early evolving on CXR; repeat CXR tomorrow -Rocephin as above, add zithromax -IVF -RT/Nebs/FV/IS -Supplemental O2 PRN to keep sats >90% Chronic:Cont home meds Dwarfism Spinal stenosis Urethral strictures- chronic lucero vs self cath HTN- stable Hx seizure disorder- cont home meds, check dilantin level Hx of mood disorder- stable Hx of PE- on chronic anticoagulation/coumadin therapy, Daily INR Hx of tachy dysrhythmia- stable, telemetry monitoring Other: GI prophylax- Pepcid DVT prophylax- on chronic coumadin therapy- cont, level is therapeutic- pharmacy to follow and dose warfarin SW for assist with DC planning---back to [facility] when ready, likely need 4 days of IV abx. Follow daily am labs PT/OT initially ordered- patient is full assist and transfer at [place] per call to [place] placed by therapy, will DC orders. Patient is Full Code status PCP is Dr. Bello with [facility].
[2017-06-14] MEDS ORDERED: Albuterol 0.083% 2.5 MG/3 ML Neb Soln NEB PRN (06:46)
--- NOTE | 2017-06-14 06:58 | CR ---
Chest: Two views of the chest were obtained. Comparison: Prior chest x-ray of 03/12/12. Heart is enlarged. Tortuous thoracic aorta is seen. Deformity is noted of both shoulders which is stable. Lungs are clear with no acute parenchymal densities. Impression: 1. Stable cardiomegaly. Nothing acute is seen. No significant change is seen from prior chest x-ray. Diagnostic code #2
[2017-06-14] MEDS: Sodium Chloride 0.9% 1,000 ML IV SCH (07:51)
[2017-06-14] MEDS: cefTRIAXone 1 GM in Sodium Chloride 0.9% 100 ML IV SCH (07:51)
[2017-06-14] MEDS: Vitamin B Complex With Vitamin C Cap PO SCH (08:05)
[2017-06-14] MEDS: Famotidine 20 MG Tab PO SCH ×2 (08:05→21:57)
[2017-06-14] MEDS: Docusate Sodium 100 MG Cap PO SCH ×2 (08:05→21:57)
[2017-06-14] MEDS: guaiFENesin 600 MG Tab.ER PO SCH ×2 (08:05→21:56)
[2017-06-14] MEDS: Saccharomyces Boulardii (Probiotic) 250 MG Cap PO SCH ×2 (08:05→21:55)
[2017-06-14] MEDS: Azithromycin 500 MG in Sodium Chloride 0.9% 250 ML IV SCH (08:39)
[2017-06-14] MEDS: Albuterol/Ipratropium 3.0-0.5 MG/3 ML Neb Soln NEB SCH ×3 (08:59→20:29)
[2017-06-14] MEDS ORDERED: Warfarin Sliding Scale PO SCH (18:00)
[2017-06-14] MEDS ORDERED: Ibuprofen 600 MG Tab PO PRN (20:30)
[2017-06-14] MEDS: Phenytoin 50 MG Tab.Chew CHEW SCH (21:55)
[2017-06-14] MEDS: Simvastatin 20 MG Tab PO SCH (21:57)
[2017-06-14] MEDS: Hypromellose 0.5% Ophth Soln 15 ML Bottle EYEBOTH PRN (22:08)
[2017-06-15] MEDS: Albuterol/Ipratropium 3.0-0.5 MG/3 ML Neb Soln NEB SCH ×4 (05:42→21:26)
[2017-06-15] MEDS: Sodium Chloride 0.9% 1,000 ML IV SCH (06:01)
[2017-06-15] MEDS: cefTRIAXone 1 GM in Sodium Chloride 0.9% 100 ML IV SCH (06:02)
[2017-06-15] MEDS: Hypromellose 0.5% Ophth Soln 15 ML Bottle EYEBOTH PRN ×3 (06:03→20:55)
[2017-06-15] MEDS: Metoprolol Tartrate 5 MG/5 ML SDV IVPUSH PRN (06:26)
--- NOTE | 2017-06-15 06:53 | PCM.PN ---
- General Info Date of Service: 06/15/17 Admission Dx/Problem (Free Text): UTI/Pneumonia Doing better. Strength overall is improving. Good appetite. Febrile last evening with t-max of 102.0 at 2130. Functional Status: Reports: Pain Controlled, Tolerating Diet, Urinating (lucero cath), Incentive Spirometry. Denies: Ambulating (nonambulatory) - Review of Systems General: Reports: Fever HEENT: Reports: No Symptoms. Denies: Headaches Pulmonary: Reports: Shortness of Breath, Cough, Sputum Cardiovascular: Reports: No Symptoms, Other (tele report from ICU, overnight was in and out of afib with rates up to 130's. Patient asymptomatic. ). Denies : Chest Pain Gastrointestinal: Reports: No Symptoms. Denies: Abdominal Pain, Diarrhea, Nausea, Vomiting Genitourinary: Reports: Other (lucero as above) Neurological: Reports: No Symptoms - Patient Data Vitals - Most Recent: Last Vital Signs Temp 98.8 F 06/15/17 04:23 Pulse 140 H 06/15/17 06:26 Resp 19 06/15/17 04:23 BP 108/74 06/15/17 06:26 Pulse Ox 94 L 06/15/17 05:42 Weight - Most Recent: 141 lb 14.4 oz I&O - Last 24 Hours: Intake & Output 06/14/17 06/14/17 06/15/17 14:59 22:59 06:59 Intake Total 120 1664 350 Output Total 250 250 Balance 120 1414 100 Lab Results Last 24 Hours: Laboratory Results - last 24 hr 06/14/17 06/14/17 06/14/17 Range/Units 05:15 05:15 05:15 WBC 10.71 H (3.98-10.04) K/mm3 RBC 3.70 L (3.98-5.22) M/mm3 Hgb 11.4 (11.2-15.7) gm/L Hct 34.5 (34.1-44.9) % MCV 93.2 (79.4-94.8) fl MCH 30.8 (25.6-32.2) pg MCHC 33.0 (32.2-35.5) g/dl RDW Std Deviation 46.3 (36.4-46.3) fL Plt Count 240 (182-369) K/mm3 MPV 11.2 (9.4-12.3) fl PT (8.0-13.0) SECONDS INR Sodium 141 (136-145) mEq/L Potassium 4.0 (3.5-5.1) mEq/L Chloride 107 (98-107) mEq/L Carbon Dioxide 21 (21-32) mEq/L Anion Gap 17.0 H (5-15) BUN 23 H (7-18) mg/dL Creatinine 0.5 L (0.55-1.02) mg/dL Est Cr Clr Drug Dosing 71.98 mL/min Estimated GFR (MDRD) > 60 (>60) mL/min BUN/Creatinine Ratio 46.0 H (14-18) Glucose 106 (83-115) mg/dL Calcium 8.1 L (8.5-10.1) mg/dL Magnesium 2.0 (1.8-2.4) mg/dl Total Bilirubin 0.3 (0.2-1.0) mg/dL AST 26 (15-37) U/L ALT 22 (14-59) U/L Alkaline Phosphatase 93 (46-116) U/L C-Reactive Protein 46.2 H* (<1.0) mg/dL Total Protein 6.1 L (6.4-8.2) g/dl Albumin 2.2 L (3.4-5.0) g/dl Globulin 3.9 gm/dL Albumin/Globulin Ratio 0.6 L (1-2) Phenytoin 11.3 (10.0-20.0) ug/mL 06/14/17 Range/Units 06:00 WBC (3.98-10.04) K/mm3 RBC (3.98-5.22) M/mm3 Hgb (11.2-15.7) gm/L Hct (34.1-44.9) % MCV (79.4-94.8) fl MCH (25.6-32.2) pg MCHC (32.2-35.5) g/dl RDW Std Deviation (36.4-46.3) fL Plt Count (182-369) K/mm3 MPV (9.4-12.3) fl PT 37.2 H (8.0-13.0) SECONDS INR 3.17 Sodium (136-145) mEq/L Potassium (3.5-5.1) mEq/L Chloride (98-107) mEq/L Carbon Dioxide (21-32) mEq/L Anion Gap (5-15) BUN (7-18) mg/dL Creatinine (0.55-1.02) mg/dL Est Cr Clr Drug Dosing mL/min Estimated GFR (MDRD) (>60) mL/min BUN/Creatinine Ratio (14-18) Glucose (83-115) mg/dL Calcium (8.5-10.1) mg/dL Magnesium (1.8-2.4) mg/dl Total Bilirubin (0.2-1.0) mg/dL AST (15-37) U/L ALT (14-59) U/L Alkaline Phosphatase (46-116) U/L C-Reactive Protein (<1.0) mg/dL Total Protein (6.4-8.2) g/dl Albumin (3.4-5.0) g/dl Globulin gm/dL Albumin/Globulin Ratio (1-2) Phenytoin (10.0-20.0) ug/mL Med Orders - Current: Current Medications Acetaminophen (Tylenol) 650 mg PO Q6H PRN PRN Reason: fever Last Admin: 06/14/17 18:02 Dose: 650 mg Albuterol (Proventil Neb Soln) 2.5 mg NEB Q4HRRT PRN PRN Reason: SOB/cough/wheezing Albuterol/Ipratropium (Duoneb 3.0-0.5 Mg/3 Ml) 3 ml NEB QIDRT [facility] Last Admin: 06/15/17 05:42 Dose: 3 ml Artificial Tears (Isopto Tears 0.5% Ophth Soln) 0 ml EYEBOTH Q2H PRN PRN Reason: dry/irritated eyes Last Admin: 06/15/17 06:03 Dose: 2 drop Docusate Sodium (Colace) 100 mg PO BID [facility] Last Admin: 06/14/17 21:57 Dose: 100 mg Famotidine (Pepcid) 20 mg PO BID [facility] Last Admin: 06/14/17 21:57 Dose: 20 mg Guaifenesin (Mucinex) 1,200 mg PO BID [facility] Last Admin: 06/14/17 21:56 Dose: 1,200 mg Ceftriaxone Sodium 1 gm/ (Sodium Chloride) 100 mls @ 200 mls/hr IV Q24H [facility] Last Admin: 06/15/17 06:02 Dose: 200 mls/hr Sodium Chloride (Normal Saline) 1,000 mls @ 50 mls/hr IV ASDIRECTED [facility] Last Admin: 06/15/17 06:01 Dose: 100 mls/hr Azithromycin 500 mg/ Sodium (Chloride) 250 mls @ 250 mls/hr IV Q24H [facility] Last Admin: 06/14/17 08:39 Dose: 250 mls/hr Ibuprofen (Motrin) 600 mg PO Q6H PRN PRN Reason: Fever Last Admin: 06/14/17 21:56 Dose: 600 mg Metoprolol Tartrate (Lopressor) 5 mg IVPUSH Q4H PRN PRN Reason: Tachycardia Last Admin: 06/15/17 06:26 Dose: 5 mg Phenytoin Sodium (Dilantin) 250 mg CHEW BEDTIME [facility] Last Admin: 06/14/17 21:55 Dose: 250 mg Saccharomyces Boulardii (Florastor) 250 mg PO BID [facility] Last Admin: 06/14/17 21:55 Dose: 250 mg Simvastatin (Zocor) 20 mg PO BEDTIME [facility] Last Admin: 06/14/17 21:57 Dose: 20 mg Sodium Chloride (Saline Flush) 10 ml FLUSH ASDIRECTED PRN PRN Reason: Keep Vein Open Last Admin: 06/13/17 19:22 Dose: 10 ml Vitamin B Complex/Vitamin C (Super B With Vitamin C) 1 cap PO DAILY [facility] Last Admin: 06/14/17 08:05 Dose: 1 cap Warfarin Sodium (Coumadin) 1.25 mg PO Fr@1800 [facility] Warfarin Sodium (Coumadin) 2.5 mg PO SuMoTuWeThSa@1800 [facility] Warfarin Sodium (Pharmacy To Dose - Warfarin) 0 dose .XX ASDIRECTED PRN PRN Reason: RX TO DOSE COUMADIN Discontinued Medications Acetaminophen (Tylenol) 650 mg PO NOW ONE Stop: 06/13/17 21:01 Last Admin: 06/13/17 21:12 Dose: 650 mg Sodium Chloride (Normal Saline) 1,000 mls @ 100 mls/hr IV ONETIME ONE Stop: 06/14/17 04:58 Last Admin: 06/13/17 19:22 Dose: 100 mls/hr Ceftriaxone Sodium 1 gm/ (Sodium Chloride) 100 mls @ 200 mls/hr IV ONETIME ONE Stop: 06/13/17 21:32 Last Admin: 06/13/17 21:12 Dose: 200 mls/hr Warfarin Sodium (Coumadin Sliding Scale) 0 each PO QPM HO Stop: 06/14/17 21:00 Last Admin: 06/14/17 18:02 Dose: Not Given - Exam Quality Assessment: DVT Prophylaxis General: Alert, Oriented, Cooperative, No Acute Distress HEENT: Pupils Equal, EOMI, Mucous Membr. Moist/[place] Neck: Supple Lungs: Normal Respiratory Effort, Decreased Breath Sounds, Wheezing Cardiovascular: Regular Rate, Regular Rhythm, No Murmurs GI/Abdominal Exam: Normal Bowel Sounds, Soft, Non-Tender (Female) Exam: Deferred Extremities: No Pedal Edema, Normal Capillary Refill, Other (short/dwarfism) Peripheral Pulses: 2+: Dorsalis Pedis (L), Dorsalis Pedis (R) Neurological: No New Focal Deficit Psy/Mental Status: Alert, Normal Affect, Normal Mood - Problem List & Annotations (1) UTI (urinary tract infection) SNOMED Code(s): 77928207 Code(s): N39.0 - URINARY TRACT INFECTION, SITE NOT SPECIFIED Status: Acute Priority: High Current Visit: Yes (2) Pneumonia SNOMED Code(s): 354567782 Code(s): J18.9 - PNEUMONIA, UNSPECIFIED ORGANISM Status: Acute Priority: High Current Visit: Yes Qualifiers: Pneumonia type: due to unspecified organism Laterality: bilateral Lung location: lower lobe of lung Qualified Code(s): J18.9 - Pneumonia, unspecified organism (3) Febrile illness, acute SNOMED Code(s): 984825199 Code(s): R50.9 - FEVER, UNSPECIFIED Status: Acute Priority: High Current Visit: Yes (4) Tachycardia SNOMED Code(s): 8185179 Code(s): R00.0 - TACHYCARDIA, UNSPECIFIED Status: Acute Priority: High Current Visit: Yes (5) rn long term care current use of anticoagulant therapy SNOMED Code(s): 822012538 Code(s): Z79.01 - MCFP (CURRENT) USE OF ANTICOAGULANTS Status: Chronic Priority: Medium Current Visit: Yes (6) Paroxysmal A-fib SNOMED Code(s): 657118149 Code(s): I48.0 - PAROXYSMAL ATRIAL FIBRILLATION Status: Acute Current Visit: Yes - Problem List Review Problem List Initiated/Reviewed/Updated: Yes - My Orders Last 24 Hours: My Active Orders 06/14/17 06:21 IS (RT) [RT Incentive Spirometry] [RC] Q2HWA 06/14/17 06:23 Communication Order [RC] ROUTINE 06/14/17 06:30 Sodium Chloride 0.9% [Normal Saline] 1,000 ml IV ASDIRECTED Warfarin Pharmacy to Dose [Pharmacy to Dose - Warfarin] 0 dose .XX ASDIRECTED PRN 06/14/17 06:46 RT Aerosol Therapy [RC] ASDIRECTED Albuterol [Proventil Neb Soln] 2.5 mg NEB Q4HRRT PRN 06/14/17 07:00 cefTRIAXone [Rocephin] 1 gm Sodium Chloride 0.9% [Normal Saline] 100 ml IV Q24H 06/14/17 08:00 Azithromycin [Zithromax] 500 mg Sodium Chloride 0.9% [Normal Saline] 250 ml IV Q24H 06/14/17 08:10 RESPIRATORY PANEL BY PCR [MREF] Routine 06/14/17 09:00 Docusate Sodium [Colace] 100 mg PO BID Famotidine [Pepcid] 20 mg PO BID Saccharomyces Boulardii [Florastor] 250 mg PO BID Vitamin B Complex with C [Super B With Vitamin C] 1 cap PO DAILY guaiFENesin [Mucinex] 1,200 mg PO BID 06/14/17 09:52 RT Flutter Valve Therapy [RT Acapella] [RESPCARE] Routine 06/14/17 09:53 Hypromellose [Isopto Tears 0.5% Ophth Soln] 0 ml EYEBOTH Q2H PRN 06/14/17 10:00 Albuterol/Ipratropium [DuoNeb 3.0-0.5 MG/3 ML] 3 ml NEB QIDRT 06/14/17 16:40 STREP PNEUMONIAE ANTIGEN [MREF] Routine 06/14/17 21:00 Simvastatin [Zocor] 20 mg PO BEDTIME 06/14/17 Lunch Heart Healthy Diet [DIET] 06/15/17 05:11 Chest 2V [CR] AM 06/15/17 05:33 BASIC METABOLIC PANEL,BMP [CHEM] DAILY C-REACTIVE PROTEIN [CHEM] DAILY CBC WITH AUTO DIFF [HEME] DAILY INR,PT,PROTHROMBIN TIME [COAG] DAILY MAGNESIUM [CHEM] DAILY 06/15/17 18:00 Warfarin [Coumadin] 2.5 mg PO SuMoTuWeThSa@1800 06/16/17 05:00 BASIC METABOLIC PANEL,BMP [CHEM] DAILY C-REACTIVE PROTEIN [CHEM] DAILY CBC WITH AUTO DIFF [HEME] DAILY MAGNESIUM [CHEM] DAILY 06/16/17 06:22 INR,PT,PROTHROMBIN TIME [COAG] DAILY 06/16/17 18:00 Warfarin [Coumadin] 1.25 mg PO Fr@1800 06/17/17 05:00 BASIC METABOLIC PANEL,BMP [CHEM] DAILY C-REACTIVE PROTEIN [CHEM] DAILY CBC WITH AUTO DIFF [HEME] DAILY MAGNESIUM [CHEM] DAILY 06/17/17 06:22 INR,PT,PROTHROMBIN TIME [COAG] DAILY 06/18/17 05:00 BASIC METABOLIC PANEL,BMP [CHEM] DAILY C-REACTIVE PROTEIN [CHEM] DAILY CBC WITH AUTO DIFF [HEME] DAILY MAGNESIUM [CHEM] DAILY 06/18/17 06:22 INR,PT,PROTHROMBIN TIME [COAG] DAILY - Plan Plan:: I/P: AUTI -Risk factors: self cath daily due to structural problem, immobility, [place] resident - pending -Rocephin started in ED, will continue -Cont lucero cath for now -IVF for hydration -Probiotic BID -Antipyretics PRN -Follow CRP which is significantly elevated at 45.2-->46.2 -WBC 12K-->10K Pneumonia -? early evolving on CXR; repeat CXR tomorrow -Rocephin as above, add zithromax -IVF -RT/Nebs/FV/IS -Supplemental O2 PRN to keep sats >90% Questionable Paroxysmal afib on telemetry last night -Anticoagulated chronically with coumadin for PE hx -Will start metoprolol 25mg BID--hold if HR <60 -EKG when noted afib on telemetry-- orders given to ICU nursing -Recommend DC with Holter monitor Chronic:Cont home meds Dwarfism Spinal stenosis Urethral strictures- chronic lucero vs self cath-- likely recommend lucero cath on DC HTN- stable Hx seizure disorder- cont home meds, check dilantin level= WNL, cont current dose Hx of mood disorder- stable Hx of PE- on chronic anticoagulation/coumadin therapy, Daily INR Hx of tachy dysrhythmia- stable, telemetry monitoring Other: GI prophylax- Pepcid DVT prophylax- on chronic coumadin therapy- cont, level is therapeutic- pharmacy to follow and dose warfarin SW for assist with DC planning---back to [facility] when ready, likely need 4 total days of IV abx Follow daily am labs PT/OT initially ordered- patient is full assist and transfer at [facility] per call to [place] placed by therapy, will DC orders. Patient is Full Code status PCP is Dr. Bello with [facility].
[2017-06-15] MEDS: Azithromycin 500 MG in Sodium Chloride 0.9% 250 ML IV SCH (08:32)
[2017-06-15] MEDS: Metoprolol Tartrate 25 MG Tab PO SCH ×2 (08:36→20:53)
[2017-06-15] MEDS: guaiFENesin 600 MG Tab.ER PO SCH ×2 (08:36→20:53)
[2017-06-15] MEDS: Vitamin B Complex With Vitamin C Cap PO SCH (08:36)
[2017-06-15] MEDS: Famotidine 20 MG Tab PO SCH ×2 (08:40→20:55)
[2017-06-15] MEDS: Saccharomyces Boulardii (Probiotic) 250 MG Cap PO SCH ×2 (08:40→20:55)
[2017-06-15] MEDS ORDERED: Potassium Chloride 20 MEQ Tab.ER PO ONE (08:40)
[2017-06-15] MEDS: Docusate Sodium 100 MG Cap PO SCH (08:40)
--- NOTE | 2017-06-15 10:25 | CR ---
Chest: Two views of the chest were obtained. Comparison: Prior chest x-ray of 06/13/17. Increased density is seen on current study within the posterior base most likely on the right side. This is poorly identified on frontal view. Pulmonary vessels are minimally increased which is stable. Heart is enlarged. Upper mediastinum is normal. Deformity noted of both shoulders which is stable. Impression: 1. Parenchymal density on the lateral view posteriorly within most likely the right lung. This is not well seen on frontal view. This presumably represents pneumonia. 2. Cardiomegaly and minimal increased pulmonary vessels which are stable. Diagnostic code #3
[2017-06-15] MEDS ORDERED: Warfarin Sliding Scale PO SCH (18:00)
[2017-06-15] MEDS: Phenytoin 50 MG Tab.Chew CHEW SCH (20:53)
[2017-06-15] MEDS: Simvastatin 20 MG Tab PO SCH (20:55)
[2017-06-16] MEDS: Docusate Sodium 100 MG Cap PO SCH ×3 (05:09→20:23)
[2017-06-16] MEDS: cefTRIAXone 1 GM in Sodium Chloride 0.9% 100 ML IV SCH (06:07)
[2017-06-16] MEDS: Albuterol/Ipratropium 3.0-0.5 MG/3 ML Neb Soln NEB SCH ×4 (06:19→21:03)
[2017-06-16] MEDS: Metoprolol Tartrate 5 MG/5 ML SDV IVPUSH PRN (10:24)
[2017-06-16] MEDS: Metoprolol Tartrate 25 MG Tab PO SCH ×2 (10:41→18:41)
[2017-06-16] MEDS: Saccharomyces Boulardii (Probiotic) 250 MG Cap PO SCH ×2 (10:41→20:25)
[2017-06-16] MEDS: Azithromycin 500 MG in Sodium Chloride 0.9% 250 ML IV SCH (10:41)
[2017-06-16] MEDS: Famotidine 20 MG Tab PO SCH ×2 (10:42→20:24)
[2017-06-16] MEDS: Vitamin B Complex With Vitamin C Cap PO SCH (10:42)
[2017-06-16] MEDS: guaiFENesin 600 MG Tab.ER PO SCH ×2 (10:43→20:23)
--- NOTE | 2017-06-16 11:17 | PCM.PN ---
- General Info Date of Service: 06/16/17 Admission Dx/Problem (Free Text): UTI/Pneumonia Doing better. Strength overall is improving. Good appetite. Afebrile overnight. Functional Status: Reports: Pain Controlled, Tolerating Diet, Urinating (lucero catheter ), Incentive Spirometry - Review of Systems General: Reports: No Symptoms HEENT: Reports: Other (Right eye irritation and redness from patient rubbing ) Pulmonary: Reports: Cough, Sputum Cardiovascular: Reports: No Symptoms Gastrointestinal: Reports: No Symptoms Genitourinary: Reports: No Symptoms, Other Musculoskeletal: Reports: No Symptoms Skin: Reports: No Symptoms Neurological: Reports: No Symptoms, Other Psychiatric: Reports: No Symptoms - Patient Data Vitals - Most Recent: Last Vital Signs Temp 98.4 F 06/16/17 06:14 Pulse 109 H 06/16/17 10:41 Resp 8 L 06/16/17 06:14 BP 101/50 L 06/16/17 10:41 Pulse Ox 95 06/16/17 09:04 Weight - Most Recent: 139 lb 6.4 oz I&O - Last 24 Hours: Intake & Output 06/15/17 06/16/17 06/16/17 22:59 06:59 14:59 Intake Total 650 400 0 Output Total 325 600 Balance 325 -200 0 Lab Results Last 24 Hours: Laboratory Results - last 24 hr 06/16/17 06/16/17 06/16/17 Range/Units 06:27 06:27 06:27 WBC 8.24 (3.98-10.04) K/mm3 RBC 3.78 L (3.98-5.22) M/mm3 Hgb 11.5 (11.2-15.7) gm/L Hct 35.2 (34.1-44.9) % MCV 93.1 (79.4-94.8) fl MCH 30.4 (25.6-32.2) pg MCHC 32.7 (32.2-35.5) g/dl RDW Std Deviation 47.2 H (36.4-46.3) fL Plt Count 287 (182-369) K/mm3 MPV 10.6 (9.4-12.3) fl Neut % (Auto) 65.6 (34.0-71.1) % Lymph % (Auto) 15.3 L (19.3-51.7) % [place] % (Auto) 11.7 (4.7-12.5) % Eos % (Auto) 2.7 (0.7-5.8) Baso % (Auto) 0.8 (0.1-1.2) % Neut # (Auto) 5.41 (1.56-6.13) K/mm3 Lymph # (Auto) 1.26 (1.18-3.74) K/mm3 [place] # (Auto) 0.96 H (0.24-0.36) K/mm3 Eos # (Auto) 0.22 (0.04-0.36) K/mm3 Baso # (Auto) 0.07 (0.01-0.08) K/mm3 Manual Slide Review Abnormal smear PT 19.7 H (8.0-13.0) SECONDS INR 1.74 Sodium 141 (136-145) mEq/L Potassium 3.8 (3.5-5.1) mEq/L Chloride 108 H (98-107) mEq/L Carbon Dioxide 21 (21-32) mEq/L Anion Gap 15.8 H (5-15) BUN 18 (7-18) mg/dL Creatinine 0.5 L (0.55-1.02) mg/dL Est Cr Clr Drug Dosing 71.98 mL/min Estimated GFR (MDRD) > 60 (>60) mL/min BUN/Creatinine Ratio 36.0 H (14-18) Glucose 99 (83-115) mg/dL Calcium 8.0 L (8.5-10.1) mg/dL Magnesium 2.1 (1.8-2.4) mg/dl C-Reactive Protein 22.4 H* (<1.0) mg/dL TSH 3rd Generation (0.358-3.74) uIU/mL 06/16/17 Range/Units 06:27 WBC (3.98-10.04) K/mm3 RBC (3.98-5.22) M/mm3 Hgb (11.2-15.7) gm/L Hct (34.1-44.9) % MCV (79.4-94.8) fl MCH (25.6-32.2) pg MCHC (32.2-35.5) g/dl RDW Std Deviation (36.4-46.3) fL Plt Count (182-369) K/mm3 MPV (9.4-12.3) fl Neut % (Auto) (34.0-71.1) % Lymph % (Auto) (19.3-51.7) % [place] % (Auto) (4.7-12.5) % Eos % (Auto) (0.7-5.8) Baso % (Auto) (0.1-1.2) % Neut # (Auto) (1.56-6.13) K/mm3 Lymph # (Auto) (1.18-3.74) K/mm3 [place] # (Auto) (0.24-0.36) K/mm3 Eos # (Auto) (0.04-0.36) K/mm3 Baso # (Auto) (0.01-0.08) K/mm3 Manual Slide Review PT (8.0-13.0) SECONDS INR Sodium (136-145) mEq/L Potassium (3.5-5.1) mEq/L Chloride (98-107) mEq/L Carbon Dioxide (21-32) mEq/L Anion Gap (5-15) BUN (7-18) mg/dL Creatinine (0.55-1.02) mg/dL Est Cr Clr Drug Dosing mL/min Estimated GFR (MDRD) (>60) mL/min BUN/Creatinine Ratio (14-18) Glucose (83-115) mg/dL Calcium (8.5-10.1) mg/dL Magnesium (1.8-2.4) mg/dl C-Reactive Protein (<1.0) mg/dL TSH 3rd Generation 1.579 (0.358-3.74) uIU/mL Bong Results Last 24 Hours: Microbiology 06/14/17 08:10 Respiratory Virus Panel (PCR) (BONG) - Final Nasopharyngeal Swab - Nare, Right 06/14/17 16:40 Streptococcus pneumoniae Antigen (M - Final Urine Med Orders - Current: Current Medications Acetaminophen (Tylenol) 650 mg PO Q6H PRN PRN Reason: fever Last Admin: 06/14/17 18:02 Dose: 650 mg Albuterol (Proventil Neb Soln) 2.5 mg NEB Q4HRRT PRN PRN Reason: SOB/cough/wheezing Albuterol/Ipratropium (Duoneb 3.0-0.5 Mg/3 Ml) 3 ml NEB QIDRT [facility] Last Admin: 06/16/17 09:04 Dose: 3 ml Artificial Tears (Isopto Tears 0.5% Ophth Soln) 0 ml EYEBOTH Q2H PRN PRN Reason: dry/irritated eyes Last Admin: 06/15/17 20:55 Dose: 2 drop Docusate Sodium (Colace) 100 mg PO BID [facility] Last Admin: 06/16/17 10:42 Dose: 100 mg Famotidine (Pepcid) 20 mg PO BID [facility] Last Admin: 06/16/17 10:42 Dose: 20 mg Guaifenesin (Mucinex) 1,200 mg PO BID [facility] Last Admin: 06/16/17 10:43 Dose: 1,200 mg Ceftriaxone Sodium 1 gm/ (Sodium Chloride) 100 mls @ 200 mls/hr IV Q24H [facility] Last Admin: 06/16/17 06:07 Dose: 200 mls/hr Azithromycin 500 mg/ Sodium (Chloride) 250 mls @ 250 mls/hr IV Q24H [facility] Last Admin: 06/16/17 10:41 Dose: 250 mls/hr Ibuprofen (Motrin) 600 mg PO Q6H PRN PRN Reason: Fever Last Admin: 06/14/17 21:56 Dose: 600 mg Metoprolol Tartrate (Lopressor) 5 mg IVPUSH Q4H PRN PRN Reason: Tachycardia Last Admin: 06/16/17 10:24 Dose: 5 mg Metoprolol Tartrate (Lopressor) 25 mg PO Q12HR [facility] Last Admin: 06/16/17 10:41 Dose: 25 mg Phenytoin Sodium (Dilantin) 250 mg CHEW BEDTIME [facility] Last Admin: 06/15/17 20:53 Dose: 250 mg Saccharomyces Boulardii (Florastor) 250 mg PO BID [facility] Last Admin: 06/16/17 10:41 Dose: 250 mg Simvastatin (Zocor) 20 mg PO BEDTIME [facility] Last Admin: 06/15/17 20:55 Dose: 20 mg Sodium Chloride (Saline Flush) 10 ml FLUSH ASDIRECTED PRN PRN Reason: Keep Vein Open Last Admin: 06/13/17 19:22 Dose: 10 ml Vitamin B Complex/Vitamin C (Super B With Vitamin C) 1 cap PO DAILY [facility] Last Admin: 06/16/17 10:42 Dose: 1 cap Warfarin Sodium (Pharmacy To Dose - Warfarin) 0 dose .XX ASDIRECTED PRN PRN Reason: RX TO DOSE COUMADIN Warfarin Sodium (Coumadin) 2.5 mg PO DAILY@1800 [facility] Stop: 06/16/17 21:00 Discontinued Medications Acetaminophen (Tylenol) 650 mg PO NOW ONE Stop: 06/13/17 21:01 Last Admin: 06/13/17 21:12 Dose: 650 mg Sodium Chloride (Normal Saline) 1,000 mls @ 100 mls/hr IV ONETIME ONE Stop: 06/14/17 04:58 Last Admin: 06/13/17 19:22 Dose: 100 mls/hr Ceftriaxone Sodium 1 gm/ (Sodium Chloride) 100 mls @ 200 mls/hr IV ONETIME ONE Stop: 06/13/17 21:32 Last Admin: 06/13/17 21:12 Dose: 200 mls/hr Sodium Chloride (Normal Saline) 1,000 mls @ 50 mls/hr IV ASDIRECTED [facility] Last Admin: 06/15/17 06:01 Dose: 100 mls/hr Potassium Chloride (Klor-Con M20) 40 meq PO ONETIME ONE Stop: 06/15/17 08:41 Last Admin: 06/15/17 08:40 Dose: 40 meq Warfarin Sodium (Coumadin) 1.25 mg PO Fr@1800 HO Warfarin Sodium (Coumadin) 2.5 mg PO SuMoTuWeThSa@1800 HO Warfarin Sodium (Coumadin Sliding Scale) 0 each PO QPM [facility] Stop: 06/14/17 21:00 Last Admin: 06/14/17 18:02 Dose: Not Given Warfarin Sodium (Coumadin Sliding Scale) 0 each PO QPM HO Stop: 06/15/17 21:00 Last Admin: 06/15/17 17:40 Dose: Not Given - Exam Quality Assessment: Urine Catheter, DVT Prophylaxis General: Alert, Oriented, Cooperative HEENT: Pupils Equal, Pupils Reactive, Other (right eye injected sclera and subconjunctival hemorrhage ) Neck: Supple Lungs: Decreased Breath Sounds (posterior diminished throughout bilateral) Cardiovascular: Irregular Rhythm, Tachycardia GI/Abdominal Exam: Normal Bowel Sounds, Soft, Non-Tender (Female) Exam: Deferred Extremities: Normal Inspection, Non-Tender, No Pedal Edema, Normal Capillary Refill Peripheral Pulses: 2+: Dorsalis Pedis (L), Dorsalis Pedis (R), 3+: Radial (L), Radial (R) Skin: Warm, Dry, Intact Neurological: No New Focal Deficit, Normal Speech, Normal Tone, Strength Equal Bilateral Psy/Mental Status: Alert, Normal Affect, Normal Mood EKG INTERPRETATION EKG Date: 06/16/17 Time: 10:15 Rhythm: A-Fib Rate (Beats/Min): 148 Comparison: Change From Previous EKG - Problem List & Annotations (1) UTI (urinary tract infection) SNOMED Code(s): 96251791 Code(s): N39.0 - URINARY TRACT INFECTION, SITE NOT SPECIFIED Status: Acute Priority: High Current Visit: Yes (2) Pneumonia SNOMED Code(s): 165665963 Code(s): J18.9 - PNEUMONIA, UNSPECIFIED ORGANISM Status: Acute Priority: High Current Visit: Yes Qualifiers: Pneumonia type: due to unspecified organism Laterality: bilateral Lung location: lower lobe of lung Qualified Code(s): J18.9 - Pneumonia, unspecified organism (3) Febrile illness, acute SNOMED Code(s): 323788010 Code(s): R50.9 - FEVER, UNSPECIFIED Status: Resolved Priority: High Current Visit: Yes (4) Tachycardia SNOMED Code(s): 1017724 Code(s): R00.0 - TACHYCARDIA, UNSPECIFIED Status: Acute Priority: High Current Visit: Yes (5) long term current use of anticoagulant therapy SNOMED Code(s): 509414213 Code(s): Z79.01 - T[employer] 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 (CURRENT) USE OF ANTICOAGULANTS Status: Chronic Priority: Medium Current Visit: Yes (6) Paroxysmal A-fib SNOMED Code(s): 686933625 Code(s): I48.0 - PAROXYSMAL ATRIAL FIBRILLATION Status: Acute Priority: High Current Visit: Yes (7) Subconjunctival hemorrhage of right eye SNOMED Code(s): 39539807 Code(s): H11.31 - CONJUNCTIVAL HEMORRHAGE, RIGHT EYE Status: Acute Priority: High Current Visit: Yes - Problem List Review Problem List Initiated/Reviewed/Updated: Yes - My Orders Last 24 Hours: My Active Orders 06/16/17 11:09 TROPONIN I [CHEM] Routine 06/16/17 18:00 Warfarin [Coumadin] 2.5 mg PO DAILY@1800 06/17/17 05:00 BASIC METABOLIC PANEL,BMP [CHEM] DAILY C-REACTIVE PROTEIN [CHEM] DAILY CBC WITH AUTO DIFF [HEME] DAILY MAGNESIUM [CHEM] DAILY 06/17/17 05:11 Chest 2V [CR] AM 06/17/17 06:22 INR,PT,PROTHROMBIN TIME [COAG] DAILY 06/18/17 05:00 BASIC METABOLIC PANEL,BMP [CHEM] DAILY C-REACTIVE PROTEIN [CHEM] DAILY CBC WITH AUTO DIFF [HEME] DAILY MAGNESIUM [CHEM] DAILY 06/18/17 06:22 INR,PT,PROTHROMBIN TIME [COAG] DAILY - Plan Plan:: I/P: AUTI -Risk factors: self cath daily due to structural problem, immobility, [place] -UC Klebsiella sensitive to rocephin, will cont. -Cont lucero cath, changed 06/14 after antibiotics -IVF for hydration, restart today -Probiotic BID -Antipyretics PRN -Follow CRP which is significantly elevated at 45.2-->46.2--> 22.4 -WBC 12K-->10K Pneumonia -? early evolving on CXR; repeat CXR with evidence of right infiltrate -Rocephin and zithromax -IVF as above -RT/Nebs/FV/IS -Supplemental O2 PRN to keep sats >90% -Resp. viral panel, mycoplasma, and strep pneumonia negative Questionable Paroxysmal afib on telemetry last night - confirmed this morning with EKG showing a-fib with RVR of 148 -Anticoagulated chronically with coumadin for PE hx INR 1.74, pharmacy to dose coumadin -Will start metoprolol 25mg BID--hold if HR <60 -prn IV lopressor push -Recommend DC with Holter monitor -TSH check 1.579 Subconjunctival hemorrhage- rt eye -Likely due to coughing -Moisturizing eye drops ordered, initially PRN, eye is still feeling very itching/irritated- will schedule Q4hrs for comfort. -Do not feel this is anything infectious as left eye is WNL. Chronic:Cont home meds Dwarfism Spinal stenosis Urethral strictures- chronic lucero HTN- stable Hx seizure disorder- cont home meds, check dilantin level= WNL, cont current dose Hx of mood disorder- stable Hx of PE- on chronic anticoagulation/coumadin therapy, Daily INR Hx of tachy dysrhythmia- telemetry monitoring, a-fib as noted above Other: GI prophylax- Pepcid DVT prophylax- on chronic coumadin therapy- cont, level is therapeutic- pharmacy to follow and dose warfarin SW for assist with DC planning---back to [facility] when ready, likely need 4 total days of IV abx---likely DC in 1-2 more days. Follow daily am labs PT/OT initially ordered- patient is full assist and transfer [place] call to [place] placed by therapy, will DC orders. Patient is Full Code status PCP is Dr. Bello with [facility]. Note completed by Frannie Mas NP student agree with above noted assessment and POC--Bam Garzon PA-C
[2017-06-16] MEDS: Hypromellose 0.5% Ophth Soln 15 ML Bottle EYEBOTH SCH ×3 (12:48→18:41)
[2017-06-16] MEDS ORDERED: Warfarin 2.5 MG Tab PO SCH ×2 (18:00)
[2017-06-16] MEDS: Phenytoin 50 MG Tab.Chew CHEW SCH (20:23)
[2017-06-16] MEDS: Simvastatin 20 MG Tab PO SCH (20:23)
[2017-06-17] MEDS: Hypromellose 0.5% Ophth Soln 15 ML Bottle EYEBOTH SCH ×7 (01:11→22:39)
[2017-06-17] MEDS: Metoprolol Tartrate 25 MG Tab PO SCH ×3 (04:26→18:34)
[2017-06-17] MEDS: Albuterol/Ipratropium 3.0-0.5 MG/3 ML Neb Soln NEB SCH ×4 (05:54→20:19)
[2017-06-17] MEDS: cefTRIAXone 1 GM in Sodium Chloride 0.9% 100 ML IV SCH (06:17)
--- NOTE | 2017-06-17 08:31 | CR ---
Chest: AP and lateral views of the chest were obtained. Comparison: Prior chest x-ray of 06/15/17. Heart is enlarged. Tortuous thoracic aorta is seen. Lung markings are diffusely increased which appears stable. Slightly better aeration of the right lung base is seen on the lateral view from prior exam is seen. Bony structures are osteopenic. Bony structures appear stable. Impression: 1. Better aeration of the right lung base from prior chest x-ray. 2. Other portions of the chest are stable from previous exam. Diagnostic code #2
[2017-06-17] MEDS: Docusate Sodium 100 MG Cap PO SCH ×2 (08:51→22:24)
[2017-06-17] MEDS: Vitamin B Complex With Vitamin C Cap PO SCH (08:51)
[2017-06-17] MEDS: Famotidine 20 MG Tab PO SCH ×2 (08:52→22:24)
[2017-06-17] MEDS: Saccharomyces Boulardii (Probiotic) 250 MG Cap PO SCH ×2 (08:52→22:25)
[2017-06-17] MEDS: Azithromycin 500 MG in Sodium Chloride 0.9% 250 ML IV SCH (08:54)
[2017-06-17] MEDS: guaiFENesin 600 MG Tab.ER PO SCH ×2 (08:56→22:23)
--- NOTE | 2017-06-17 14:52 | PCM.PN ---
- General Info Date of Service: 06/17/17 Functional Status: Reports: Pain Controlled, Tolerating Diet, Ambulating, Urinating - Review of Systems General: Reports: No Symptoms HEENT: Reports: No Symptoms Pulmonary: Reports: No Symptoms Cardiovascular: Reports: No Symptoms Gastrointestinal: Reports: No Symptoms Genitourinary: Reports: No Symptoms Musculoskeletal: Reports: No Symptoms Skin: Reports: No Symptoms Neurological: Reports: No Symptoms Psychiatric: Reports: No Symptoms - Patient Data Vitals - Most Recent: Last Vital Signs Temp 36.7 C 06/17/17 11:20 Pulse 83 06/17/17 12:02 Resp 20 06/17/17 08:30 BP 125/75 06/17/17 12:02 Pulse Ox 97 06/17/17 11:20 Weight - Most Recent: 64.728 kg I&O - Last 24 Hours: Intake & Output 06/16/17 06/17/17 06/17/17 22:59 06:59 14:59 Intake Total 1970 700 240 Output Total 550 475 Balance 1420 225 240 Lab Results Last 24 Hours: Laboratory Results - last 24 hr 06/17/17 06/17/17 06/17/17 Range/Units 06:24 06:24 06:24 WBC 8.22 (3.98-10.04) K/mm3 RBC 3.82 L (3.98-5.22) M/mm3 Hgb 11.6 (11.2-15.7) gm/L Hct 35.4 (34.1-44.9) % MCV 92.7 (79.4-94.8) fl MCH 30.4 (25.6-32.2) pg MCHC 32.8 (32.2-35.5) g/dl RDW Std Deviation 47.7 H (36.4-46.3) fL Plt Count 316 (182-369) K/mm3 MPV 10.1 (9.4-12.3) fl Neut % (Auto) 60.9 (34.0-71.1) % Lymph % (Auto) 20.4 (19.3-51.7) % [place] % (Auto) 10.1 (4.7-12.5) % Eos % (Auto) 2.7 (0.7-5.8) Baso % (Auto) 0.9 (0.1-1.2) % Neut # (Auto) 5.01 (1.56-6.13) K/mm3 Lymph # (Auto) 1.68 (1.18-3.74) K/mm3 [place] # (Auto) 0.83 H (0.24-0.36) K/mm3 Eos # (Auto) 0.22 (0.04-0.36) K/mm3 Baso # (Auto) 0.07 (0.01-0.08) K/mm3 Manual Slide Review Abnormal smear PT 15.9 H (8.0-13.0) SECONDS INR 1.43 Sodium 142 (136-145) mEq/L Potassium 3.9 (3.5-5.1) mEq/L Chloride 110 H (98-107) mEq/L Carbon Dioxide 23 (21-32) mEq/L Anion Gap 12.9 (5-15) BUN 14 (7-18) mg/dL Creatinine 0.5 L (0.55-1.02) mg/dL Est Cr Clr Drug Dosing 71.98 mL/min Estimated GFR (MDRD) > 60 (>60) mL/min BUN/Creatinine Ratio 28.0 H (14-18) Glucose 92 (83-115) mg/dL Calcium 8.3 L (8.5-10.1) mg/dL Magnesium 2.1 (1.8-2.4) mg/dl C-Reactive Protein 13.8 H* (<1.0) mg/dL Med Orders - Current: Current Medications Acetaminophen (Tylenol) 650 mg PO Q6H PRN PRN Reason: fever Last Admin: 06/14/17 18:02 Dose: 650 mg Albuterol (Proventil Neb Soln) 2.5 mg NEB Q4HRRT PRN PRN Reason: SOB/cough/wheezing Albuterol/Ipratropium (Duoneb 3.0-0.5 Mg/3 Ml) 3 ml NEB QIDRT [facility] Last Admin: 06/17/17 09:13 Dose: 3 ml Artificial Tears (Isopto Tears 0.5% Ophth Soln) 0 ml EYEBOTH Q4H [facility] Last Admin: 06/17/17 12:03 Dose: 2 drop Docusate Sodium (Colace) 100 mg PO BID [facility] Last Admin: 06/17/17 08:51 Dose: 100 mg Famotidine (Pepcid) 20 mg PO BID [facility] Last Admin: 06/17/17 08:52 Dose: 20 mg Guaifenesin (Mucinex) 1,200 mg PO BID [facility] Last Admin: 06/17/17 08:56 Dose: 1,200 mg Ceftriaxone Sodium 1 gm/ (Sodium Chloride) 100 mls @ 200 mls/hr IV Q24H [facility] Last Admin: 06/17/17 06:17 Dose: 200 mls/hr Azithromycin 500 mg/ Sodium (Chloride) 250 mls @ 250 mls/hr IV Q24H [facility] Last Admin: 06/17/17 08:54 Dose: 250 mls/hr Ibuprofen (Motrin) 600 mg PO Q6H PRN PRN Reason: Fever Last Admin: 06/14/17 21:56 Dose: 600 mg Metoprolol Tartrate (Lopressor) 5 mg IVPUSH Q4H PRN PRN Reason: Tachycardia Last Admin: 06/16/17 10:24 Dose: 5 mg Metoprolol Tartrate (Lopressor) 25 mg PO Q8H [facility] Last Admin: 06/17/17 12:02 Dose: 25 mg Phenytoin Sodium (Dilantin) 250 mg CHEW BEDTIME [facility] Last Admin: 06/16/17 20:23 Dose: 250 mg Saccharomyces Boulardii (Florastor) 250 mg PO BID [facility] Last Admin: 06/17/17 08:52 Dose: 250 mg Simvastatin (Zocor) 20 mg PO BEDTIME [facility] Last Admin: 06/16/17 20:23 Dose: 20 mg Sodium Chloride (Saline Flush) 10 ml FLUSH ASDIRECTED PRN PRN Reason: Keep Vein Open Last Admin: 06/13/17 19:22 Dose: 10 ml Vitamin B Complex/Vitamin C (Super B With Vitamin C) 1 cap PO DAILY [facility] Last Admin: 06/17/17 08:51 Dose: 1 cap Warfarin Sodium (Pharmacy To Dose - Warfarin) 0 dose .XX ASDIRECTED PRN PRN Reason: RX TO DOSE COUMADIN Warfarin Sodium (Coumadin) 2.5 mg PO ONETIME ONE Stop: 06/17/17 18:01 Discontinued Medications Acetaminophen (Tylenol) 650 mg PO NOW ONE Stop: 06/13/17 21:01 Last Admin: 06/13/17 21:12 Dose: 650 mg Artificial Tears (Isopto Tears 0.5% Ophth Soln) 0 ml EYEBOTH Q2H PRN PRN Reason: dry/irritated eyes Last Admin: 06/15/17 20:55 Dose: 2 drop Sodium Chloride (Normal Saline) 1,000 mls @ 100 mls/hr IV ONETIME ONE Stop: 06/14/17 04:58 Last Admin: 06/13/17 19:22 Dose: 100 mls/hr Ceftriaxone Sodium 1 gm/ (Sodium Chloride) 100 mls @ 200 mls/hr IV ONETIME ONE Stop: 06/13/17 21:32 Last Admin: 06/13/17 21:12 Dose: 200 mls/hr Sodium Chloride (Normal Saline) 1,000 mls @ 50 mls/hr IV ASDIRECTED [facility] Last Admin: 06/15/17 06:01 Dose: 100 mls/hr Metoprolol Tartrate (Lopressor) 25 mg PO Q12HR [facility] Last Admin: 06/16/17 10:41 Dose: 25 mg Potassium Chloride (Klor-Con M20) 40 meq PO ONETIME ONE Stop: 06/15/17 08:41 Last Admin: 06/15/17 08:40 Dose: 40 meq Warfarin Sodium (Coumadin) 1.25 mg PO Fr@1800 HO Warfarin Sodium (Coumadin) 2.5 mg PO SuMoTuWeThSa@1800 HO Warfarin Sodium (Coumadin Sliding Scale) 0 each PO QPM [facility] Stop: 06/14/17 21:00 Last Admin: 06/14/17 18:02 Dose: Not Given Warfarin Sodium (Coumadin Sliding Scale) 0 each PO QPM [facility] Stop: 06/15/17 21:00 Last Admin: 06/15/17 17:40 Dose: Not Given Warfarin Sodium (Coumadin) 2.5 mg PO DAILY@1800 [facility] Stop: 06/16/17 21:00 Last Admin: 06/16/17 18:50 Dose: 2.5 mg - Exam Quality Assessment: Supplemental Oxygen, DVT Prophylaxis General: Alert, Oriented, Cooperative HEENT: Pupils Equal, Pupils Reactive, EOMI Neck: Trachea Midline, No JVD Lungs: Normal Respiratory Effort, Decreased Breath Sounds Cardiovascular: Regular Rate, Regular Rhythm GI/Abdominal Exam: Normal Bowel Sounds, Soft, Non-Tender, No Organomegaly, No Distention (Female) Exam: Deferred Back Exam: Normal Inspection Extremities: Normal Inspection, Normal Range of Motion Skin: Warm Neurological: No New Focal Deficit Psy/Mental Status: Alert, Normal Affect, Normal Mood - Problem List Review Problem List Initiated/Reviewed/Updated: Yes - My Orders Last 24 Hours: My Active Orders 06/17/17 10:16 EKG 12 Lead [EKG Documentation Completion] [RC] ROUTINE 06/17/17 18:00 Warfarin [Coumadin] 2.5 mg PO ONETIME ONE 06/18/17 08:00 Cephalexin [Keflex] 250 mg PO Q6HR - Plan Plan:: I/P: AUTI -Risk factors: self cath daily due to structural problem, immobility, [place] - Klebsiella sensitive to rocephin, will cont. -Cont lucero cath, changed 06/14 after antibiotics -IVF for hydration, restart today -Probiotic BID -Antipyretics PRN -Follow CRP which is significantly elevated at 45.2-->46.2--> 22.4 -WBC 12K-->10K Pneumonia -? early evolving on CXR; repeat CXR with evidence of right infiltrate -Rocephin and zithromax -IVF as above -RT/Nebs/FV/IS -Supplemental O2 PRN to keep sats >90% -Resp. viral panel, mycoplasma, and strep pneumonia negative Paroxysmal afib on telemetry last night - confirmed this morning with EKG showing a-fib with RVR of 148 -Anticoagulated chronically with coumadin for PE hx INR 1.74, pharmacy to dose coumadin -Will start metoprolol 25mg BID--hold if HR <60 -prn IV lopressor push -Recommend DC with Holter monitor -TSH check 1.579 Subconjunctival hemorrhage- rt eye--->improving -Likely due to coughing -Moisturizing eye drops ordered, initially PRN, eye is still feeling very itching/irritated- will schedule Q4hrs for comfort. -Do not feel this is anything infectious as left eye is WNL. 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 Follow daily am labs PT/OT initially ordered- patient is full assist and [place] call to [place] placed by therapy, will DC orders. Patient is Full Code status PCP is Dr. Bello with [facility]. LOS>96 hours with response to resp/urinary infections.
[2017-06-17] MEDS ORDERED: Warfarin 2.5 MG Tab PO SCH (18:00)
[2017-06-17] MEDS ORDERED: Warfarin 2.5 MG Tab PO ONE (18:00)
[2017-06-17] MEDS: Simvastatin 20 MG Tab PO SCH (22:22)
[2017-06-17] MEDS: Phenytoin 50 MG Tab.Chew CHEW SCH (22:25)
[2017-06-18] MEDS: Hypromellose 0.5% Ophth Soln 15 ML Bottle EYEBOTH SCH ×3 (03:13→11:49)
[2017-06-18] MEDS: Metoprolol Tartrate 25 MG Tab PO SCH ×2 (03:14→11:48)
--- NOTE | 2017-06-18 06:22 | PCM.DCSUM1 ---
Discharge Summary - Discharge Data Discharge Date: 06/18/17 Discharge Disposition: Home, Self-Care 01 Condition: Good - Discharge Plan Home Medications: Home Meds Acetaminophen [Tylenol] 650 mg PO Q4H PRN 09/02/16 [History] B Complex With Vitamin C [Vitamin B-Complex with Vit C] 1 each PO DAILY [History] Calcium Carbonate/Vitamin D3 [Calcium 500 + Vit D 400] 1 each PO BID 09/02/16 [ History] Docusate Sodium [Colace] 100 mg PO BID 09/02/16 [History] Ubidecarenone [Coenzyme Q10] 100 mg PO DAILY 09/02/16 [History] Warfarin [Coumadin] 2.5 mg PO SUMOTUWETHSA 09/02/16 [History] atorvaSTATin [Lipitor] 20 mg PO BEDTIME 09/02/16 [History] Phenytoin [Dilantin] 250 mg CHEW BEDTIME 03/31/17 [History] Alendronate Sodium [Fosamax] 70 mg PO WEEKLY 06/13/17 [History] Warfarin [Coumadin] 1.25 mg PO FR 06/13/17 [History] guaiFENesin/Dextromethorphan [Robitussin Cough-Chest Dm Liq] 10 ml PO ONETIME [History] Patient Handouts: Urinary Tract Infection, Adult, [id number], Community- Acquired Pneumonia, Adult, [id number] Referrals: Aliza Bello MD [Primary Care Provider] - - Patient Data Vitals - Most Recent: Last Vital Signs Temp 36.7 C 06/18/17 03:15 Pulse 78 06/18/17 03:15 Resp 14 06/18/17 03:15 BP 119/74 06/18/17 03:14 Pulse Ox 94 L 06/18/17 03:15 Weight - Most Recent: 63.911 kg I&O - Last 24 hours: Intake & Output 06/17/17 06/17/17 06/18/17 14:59 22:59 06:59 Intake Total 240 550 600 Output Total 800 900 Balance 240 -250 -300 Lab Results - Last 24 hrs: Laboratory Results - last 24 hr 06/17/17 06/17/17 06/17/17 Range/Units 06:24 06:24 06:24 WBC 8.22 (3.98-10.04) K/mm3 RBC 3.82 L (3.98-5.22) M/mm3 Hgb 11.6 (11.2-15.7) gm/L Hct 35.4 (34.1-44.9) % MCV 92.7 (79.4-94.8) fl MCH 30.4 (25.6-32.2) pg MCHC 32.8 (32.2-35.5) g/dl RDW Std Deviation 47.7 H (36.4-46.3) fL Plt Count 316 (182-369) K/mm3 MPV 10.1 (9.4-12.3) fl Neut % (Auto) 60.9 (34.0-71.1) % Lymph % (Auto) 20.4 (19.3-51.7) % Wirt % (Auto) 10.1 (4.7-12.5) % Eos % (Auto) 2.7 (0.7-5.8) Baso % (Auto) 0.9 (0.1-1.2) % Neut # (Auto) 5.01 (1.56-6.13) K/mm3 Lymph # (Auto) 1.68 (1.18-3.74) K/mm3 Wirt # (Auto) 0.83 H (0.24-0.36) K/mm3 Eos # (Auto) 0.22 (0.04-0.36) K/mm3 Baso # (Auto) 0.07 (0.01-0.08) K/mm3 Manual Slide Review Abnormal smear PT 15.9 H (8.0-13.0) SECONDS INR 1.43 Sodium 142 (136-145) mEq/L Potassium 3.9 (3.5-5.1) mEq/L Chloride 110 H (98-107) mEq/L Carbon Dioxide 23 (21-32) mEq/L Anion Gap 12.9 (5-15) BUN 14 (7-18) mg/dL Creatinine 0.5 L (0.55-1.02) mg/dL Est Cr Clr Drug Dosing 71.98 mL/min Estimated GFR (MDRD) > 60 (>60) mL/min BUN/Creatinine Ratio 28.0 H (14-18) Glucose 92 (83-115) mg/dL Calcium 8.3 L (8.5-10.1) mg/dL Magnesium 2.1 (1.8-2.4) mg/dl C-Reactive Protein 13.8 H* (<1.0) mg/dL 06/18/17 06/18/17 06/18/17 Range/Units 04:41 04:41 04:41 WBC 9.55 (3.98-10.04) K/mm3 RBC 3.82 L (3.98-5.22) M/mm3 Hgb 11.7 (11.2-15.7) gm/L Hct 35.7 (34.1-44.9) % MCV 93.5 (79.4-94.8) fl MCH 30.6 (25.6-32.2) pg MCHC 32.8 (32.2-35.5) g/dl RDW Std Deviation 47.8 H (36.4-46.3) fL Plt Count 351 (182-369) K/mm3 MPV 10.2 (9.4-12.3) fl Neut % (Auto) 64.1 (34.0-71.1) % Lymph % (Auto) 16.6 L (19.3-51.7) % Wirt % (Auto) 11.5 (4.7-12.5) % Eos % (Auto) 2.9 (0.7-5.8) Baso % (Auto) 0.6 (0.1-1.2) % Neut # (Auto) 6.11 (1.56-6.13) K/mm3 Lymph # (Auto) 1.59 (1.18-3.74) K/mm3 Wirt # (Auto) 1.10 H (0.24-0.36) K/mm3 Eos # (Auto) 0.28 (0.04-0.36) K/mm3 Baso # (Auto) 0.06 (0.01-0.08) K/mm3 Manual Slide Review PT 18.7 H (8.0-13.0) SECONDS INR 1.66 Sodium 139 (136-145) mEq/L Potassium 4.0 (3.5-5.1) mEq/L Chloride 106 (98-107) mEq/L Carbon Dioxide 23 (21-32) mEq/L Anion Gap 14.0 (5-15) BUN 16 (7-18) mg/dL Creatinine 0.5 L (0.55-1.02) mg/dL Est Cr Clr Drug Dosing 71.98 mL/min Estimated GFR (MDRD) > 60 (>60) mL/min BUN/Creatinine Ratio 32.0 H (14-18) Glucose 85 (83-115) mg/dL Calcium 8.4 L (8.5-10.1) mg/dL Magnesium 2.1 (1.8-2.4) mg/dl C-Reactive Protein 10.0 H* (<1.0) mg/dL Med Orders - Current: Current Medications Acetaminophen (Tylenol) 650 mg PO Q6H PRN PRN Reason: fever Last Admin: 06/14/17 18:02 Dose: 650 mg Albuterol (Proventil Neb Soln) 2.5 mg NEB Q4HRRT PRN PRN Reason: SOB/cough/wheezing Albuterol/Ipratropium (Duoneb 3.0-0.5 Mg/3 Ml) [address] [facility] Last Admin: 06/17/17 20:19 Dose: 3 ml Artificial Tears (Isopto Tears 0.5% Ophth Soln) [address] [facility] Last Admin: 06/18/17 03:13 Dose: 2 drop Cephalexin (Keflex) [address] [facility] Docusate Sodium (Colace) [address] [facility] Last Admin: 06/17/17 22:24 Dose: 100 mg Famotidine (Pepcid) [address] [facility] Last Admin: 06/17/17 22:24 Dose: 20 mg Guaifenesin (Mucinex) 1,[address] [facility] Last Admin: 06/17/17 22:23 Dose: 1,200 mg Azithromycin 500 mg/ Sodium (Chloride) 250 mls @ 250 mls/hr IV Q24H [facility] Last Admin: 06/17/17 08:54 Dose: 250 mls/hr Ibuprofen (Motrin) 600 mg PO Q6H PRN PRN Reason: Fever Last Admin: 06/14/17 21:56 Dose: 600 mg Metoprolol Tartrate (Lopressor) 5 mg IVPUSH Q4H PRN PRN Reason: Tachycardia Last Admin: 06/16/17 10:24 Dose: 5 mg Metoprolol Tartrate (Lopressor) [address] [facility] Last Admin: 06/18/17 03:14 Dose: 25 mg Phenytoin Sodium (Dilantin) [address] [facility] Last Admin: 06/17/17 22:25 Dose: 250 mg Saccharomyces Boulardii (Florastor) [address] [facility] Last Admin: 06/17/17 22:25 Dose: 250 mg Simvastatin (Zocor) [address] [facility] Last Admin: 06/17/17 22:22 Dose: 20 mg Sodium Chloride (Saline Flush) 10 ml FLUSH ASDIRECTED PRN PRN Reason: Keep Vein Open Last Admin: 06/13/17 19:22 Dose: 10 ml Vitamin B Complex/Vitamin C (Super B With Vitamin C) [address] [facility] Last Admin: 06/17/17 08:51 Dose: 1 cap Warfarin Sodium (Pharmacy To Dose - Warfarin) 0 dose .XX ASDIRECTED PRN PRN Reason: RX TO DOSE COUMADIN Discontinued Medications Acetaminophen (Tylenol) 650 mg PO NOW ONE Stop: 06/13/17 21:01 Last Admin: 06/13/17 21:12 Dose: 650 mg Artificial Tears (Isopto Tears 0.5% Ophth Soln) 0 ml EYEBOTH Q2H PRN PRN Reason: dry/irritated eyes Last Admin: 06/15/17 20:55 Dose: 2 drop Sodium Chloride (Normal Saline) 1,000 mls @ 100 mls/hr IV ONETIME ONE Stop: 06/14/17 04:58 Last Admin: 06/13/17 19:22 Dose: 100 mls/hr Ceftriaxone Sodium 1 gm/ (Sodium Chloride) 100 mls @ 200 mls/hr IV ONETIME ONE Stop: 06/13/17 21:32 Last Admin: 06/13/17 21:12 Dose: 200 mls/hr Ceftriaxone Sodium 1 gm/ (Sodium Chloride) 100 mls @ 200 mls/hr IV Q24H [facility] Last Admin: 06/17/17 06:17 Dose: 200 mls/hr Sodium Chloride (Normal Saline) 1,000 mls @ 50 mls/hr IV ASDIRECTED [facility] Last Admin: 06/15/17 06:01 Dose: 100 mls/hr Metoprolol Tartrate (Lopressor) [address] [facility] Last Admin: 06/16/17 10:41 Dose: 25 mg Potassium Chloride (Klor-Con M20) 40 meq PO ONETIME ONE Stop: 06/15/17 08:41 Last Admin: 06/15/17 08:40 Dose: 40 meq Warfarin Sodium (Coumadin) 1.25 mg PO Fr@1800 HO Warfarin Sodium (Coumadin) 2.5 mg PO SuMoTuWeThSa@1800 HO Warfarin Sodium (Coumadin Sliding Scale) [address] [facility] Stop: 06/14/17 21:00 Last Admin: 06/14/17 18:02 Dose: Not Given Warfarin Sodium (Coumadin Sliding Scale) [address] [facility] Stop: 06/15/17 21:00 Last Admin: 06/15/17 17:40 Dose: Not Given Warfarin Sodium (Coumadin) 2.5 mg PO DAILY@1800 [facility] Stop: 06/16/17 21:00 Last Admin: 06/16/17 18:50 Dose: 2.5 mg Warfarin Sodium (Coumadin) 2.5 mg PO ONETIME ONE Stop: 06/17/17 18:01 Last Admin: 06/17/17 18:38 Dose: 2.5 mg *Q Meaningful Use (DIS) - VTE *Q VTE Criteria *Q: - Stroke *Q Stroke Criteria *Q: - AMI *Q AMI Criteria *Q:
[2017-06-18] MEDS: Albuterol/Ipratropium 3.0-0.5 MG/3 ML Neb Soln NEB SCH ×2 (07:08→09:14)
[2017-06-18] MEDS: Vitamin B Complex With Vitamin C Cap PO SCH (08:31)
[2017-06-18] MEDS: Famotidine 20 MG Tab PO SCH (08:31)
[2017-06-18] MEDS: Cephalexin 250 MG Cap PO SCH ×2 (08:32→11:49)
[2017-06-18] MEDS: guaiFENesin 600 MG Tab.ER PO SCH (08:32)
[2017-06-18] MEDS: Docusate Sodium 100 MG Cap PO SCH (08:32)
[2017-06-18] MEDS: Saccharomyces Boulardii (Probiotic) 250 MG Cap PO SCH (08:32)
[2017-06-18] MEDS: Azithromycin 500 MG in Sodium Chloride 0.9% 250 ML IV SCH (08:33)
[2017-06-18 11:50] VITALS: BP 128/70
[2017-06-18] MEDS ORDERED: Warfarin 2.5 MG Tab PO ONE (18:00)
== END 2017-06-18 13:51 | DRG 689 ==
LOC: JD.ED 18:16 → JD.MS 06-14 00:28
PROVIDERS: ADMIT Internal Medicine Cardiovascular Disease; ATTEND Internal Medicine Cardiovascular Disease
DX: N39.0 Urinary tract infection, site not specified (principal); J18.9 Pneumonia, unspecified organism; T83.511A Infection and inflammatory reaction due to indwelling urethral catheter, initial encounter; N13.8 Other obstructive and reflux uropathy; E34.3 Short stature due to endocrine disorder; M48.00 Spinal stenosis, site unspecified; I10 Essential (primary) hypertension; G40.909 Epilepsy, unspecified, not intractable, without status epilepticus; F39 Unspecified mood [affective] disorder; Z86.718 Personal history of other venous thrombosis and embolism; Z79.01 Long term (current) use of anticoagulants; R00.0 Tachycardia, unspecified; I48.0 Paroxysmal atrial fibrillation; H11.31 Conjunctival hemorrhage, right eye; Z88.8 Allergy status to other drugs, medicaments and biological substances; Z91.040 Latex allergy status; Z91.018 Allergy to other foods; Z79.899 Other long term (current) drug therapy
CPT/HCPCS: 36415; 71046; 80053; 81001; 83605; 85025; 85610; 85730; 86140; 86738; 87040 ×2; 87081; 87086; 87430; 87804 ×2; 96361; 96365; 99284; A9270; J0696; J7030; J7040; J7050; 80048; 80185; 83735; 84443; 84484; 85027; 87088; 87186; 87486; 87581; 87633; 87641; 87798; 87899; 93005; 94640; 94667; 97110-GP; 97162-GP; 99285; J0456; J3490

== ENCOUNTER 2017-06-29 15:17 | Inpatient (IN) | payer MEDICAID ==
[2017-06-29] MEDS ORDERED: Sodium Chloride 0.9% 10 ML Syringe FLUSH PRN (16:27)
[2017-06-29] MEDS ORDERED: cefTRIAXone 1 GM in Sodium Chloride 0.9% 100 ML IV ONE (18:05)
[2017-06-29] MEDS ORDERED: Sodium Chloride 0.9% 1,000 ML IV SCH ×2 (18:15→21:00)
--- NOTE | 2017-06-29 20:21 | PCM.HP ---
H&P History of Present Illness - General Date of Service: 06/29/17 Admit Problem/Dx: Admission Diagnosis/Problem Admission Diagnosis/Problem Pneumonia Source of Information: Patient, Provider, RN, RN Notes Reviewed History Limitations: Reports: No Limitations - History of Present Illness Initial Comments - Free Text/Narative: Indira Avila is a 72 yo female who presents to our ED today (06/29/17) from [facility] with reports of a fever of 103.2. She was recently hospitalized from 06/14-06/18 with pneumonia. She was discharged home with antibiotics and finished treatment. She reportedly has had some pain in her feet over the past night. Denies chest pain, shortness of breath, cough, nausea , vomiting. She does have a chronic indwelling Lucero catheter. E temp was 38.4 Celsius. Pulse 99. Respirations 20. Blood pressure 106/60. Pulse ox 93%. Labs were obtained: 30 mL her elevated at 23.48. Hemoglobin 14.3. Hematocrit 44.1. She is normocytic. Plans were elevated at 424,000. Neutrophils were high at 79%. There is 13% band neutrophils. Sodium is 134. Potassium 3.9. Chloride 100. Carbon dioxide 26. Anion gap is on the high end of normal at 14.9. BUN is 21. Creatinine 0.9. EGFR greater than 60. Glucose is 116. Lactic acid 1.9. Calcium 9.2. Bilirubin 0.4. AST was 20, ALT 40, alkaline phosphatase 145. CRP is elevated at 15.9. Protein is 7.4. Albumin low at 3.3. UA is obtained and is positive. It shows a specific gravity of greater than or equal to 1.030. Protein is one plus. Ketones are 1+. O Molina is 2+. Nitrite is positive. Leukoesterase is one plus. Urine RBCs are 5-10. Urine W Caesar 1020. Many bacteria noted. She was started on normal saline and given Rocephin. Chest x-rays obtained shows no acute intrathoracic process with formal radiology read pending. Influenza screen is negative. Blood and urine cultures have been sent. She did have an episode of diarrhea and a C. difficile sample was sent. She carries a history of: A. fib, hypertension, SA node dysfunction, HLD, recurrent pneumonia, PE, urinary retention, recurrent UTI, chronic Lucero catheter, dwarfism, seizure, TIA, epilepsy, spinal stenosis, depression, mood swings, mood disorder, obesity. She has had a prior C. difficile infection. She is subsequently admitted to the medical floor on telemetry. She is a full code. Her PCP is Dr. Bello at [place]. - Related Data Allergies/Adverse Reactions: Allergies Allergy/AdvReac Type Severity Reaction Status Date / Time latex Allergy Rash Verified 06/13/17 18:36 tree nut Allergy Swollen Verified 06/13/17 18:36 Tongue nitrofurantoin AdvReac Sweating Verified 06/13/17 18:36 Home Medications: Home Meds Acetaminophen [Tylenol] 650 mg PO Q4H PRN 09/02/16 [History] B Complex With Vitamin C [Vitamin B-Complex with Vit C] 1 each PO DAILY [History] Calcium Carbonate/Vitamin D3 [Calcium 500 + Vit D 400] 1 each PO BID 09/02/16 [ History] Docusate Sodium [Colace] 100 mg PO BID 09/02/16 [History] Warfarin [Coumadin] 2.5 mg PO SUMOTUWETHSA 09/02/16 [History] atorvaSTATin [Lipitor] 20 mg PO BEDTIME 09/02/16 [History] Phenytoin [Dilantin] 250 mg CHEW BEDTIME 03/31/17 [History] Alendronate Sodium [Fosamax] 70 mg PO WEEKLY 06/13/17 [History] Warfarin [Coumadin] 1.25 mg PO FR 06/13/17 [History] Azithromycin [Zithromax] 250 mg PO Q24H #5 package 06/18/17 [Rx] Cephalexin [Keflex] 250 mg PO Q6HR #30 cap 06/18/17 [Rx] Hypromellose [Isopto Tears 0.5% Ophth Soln] 0.25 ml EYEBOTH Q4H #15 bottle 06/18 [Rx] Metoprolol Tartrate [Lopressor] 25 mg PO Q8H #90 tablet 06/18/17 [Rx] Saccharomyces Boulardii [Florastor] 250 mg PO BID #20 cap 06/18/17 [Rx] guaiFENesin [Mucinex] 1,200 mg PO BID #30 tab.er 06/18/17 [Rx] Past Medical History HEENT History: Reports: Impaired Vision Cardiovascular History: Reports: Hypertension Other Cardiovascular History: Thrombosis, SA Node Dysfunction, tachy arrhythmia Respiratory History: Reports: PE, Pneumonia, Recurrent Other Respiratory History: Embolism Gastrointestinal History: Reports: Other (See Below) Other Gastrointestinal History: Internal Hemorrhoids, Intestinal infection related to C. Diff. Genitourinary History: Reports: Retention, Urinary, UTI, Recurrent, Other (See Below) Other Genitourinary History: obstructive and reflux uropathy, chronic lucero Musculoskeletal History: Reports: Other (See Below) Other Musculoskeletal History: Dwarfism Neurological History: Reports: Seizure, TIA Other Neuro History: Spinal Stenosis Psychiatric History: Reports: Mood Swings, Other (See Below) Other Psychiatric History: mood disorder Other Endocrine/Metabolic History: Dwarfism Hematologic History: Reports: Other (See Below) Other Hematologic History: blood thinners Dermatologic History: Reports: Other (See Below) Other Dermatologic History: edema - Past Surgical History GI Surgical History: Reports: Colon, Colonoscopy Musculoskeletal Surgical History: Reports: Carpal Tunnel, Other (See Below) Other Musculoskeletal Surgeries/Procedures:: Laminectomy Social & Family History - Family History Family Medical History: Noncontributory - Tobacco Use Smoking Status *Q: Never Smoker Second Hand Smoke Exposure: No - Caffeine Use Caffeine Use: Reports: Soda - Recreational Drug Use Recreational Drug Use: No Drug Use in Last 12 Months: No H&P Review of Systems - Review of Systems: Review Of Systems: See Below General: Reports: Fever. Denies: Chills, Malaise, Weakness, Fatigue, Night Sweats, Decreased Appetite HEENT: Reports: No Symptoms. Denies: Dysphasia, Headaches, Rhinitis, Post Nasal Drip, Sinus Congestion, Sore Throat Pulmonary: Reports: No Symptoms. Denies: Shortness of Breath, Wheezing, Pleuritic Chest Pain, Cough, Sputum Cardiovascular: Reports: No Symptoms. Denies: Chest Pain, Palpitations, Edema, Lightheadedness Gastrointestinal: Reports: Diarrhea. Denies: Abdominal Pain, Constipation, Nausea, Vomiting Genitourinary: Reports: Retention, Other (Chronic indwelling lucero cath). Denies: Pain Musculoskeletal: Reports: No Symptoms Skin: Reports: No Symptoms Psychiatric: Reports: No Symptoms Neurological: Reports: No Symptoms Hematologic/Lymphatic: Reports: No Symptoms Immunologic: Reports: No Symptoms Exam - Exam Exam: See Below - Vital Signs Vital Signs: Last Vital Signs Temp 100.6 F 06/29/17 15:36 Pulse 103 H 06/29/17 15:36 Resp 28 H 06/29/17 15:36 BP 117/55 L 06/29/17 15:36 Pulse Ox 93 L 06/29/17 15:36 Weight: 133 lb - Exam Quality Assessment: Urinary Catheter General: Alert, Oriented, Cooperative. No: Mild Distress HEENT: PERRLA, Hearing Intact, Mucosa Moist & [place], Nares Patent, Normal Nasal Septum, Posterior Pharynx Clear, Conjunctiva Clear, EOMI, EACs Clear, TMs Clear Neck: Supple, Trachea Midline. No: JVD Lungs: Clear to Auscultation, Normal Respiratory Effort Cardiovascular: Regular Rate, Regular Rhythm GI/Abdominal Exam: Normal Bowel Sounds, Soft, Non-Tender, No Organomegaly, No Distention, No Abnormal Bruit, No Mass, Pelvis Stable (Female) Exam: Deferred Rectal (Female) Exam: Deferred Extremities: Normal Inspection, Normal Range of Motion, Non-Tender, No Pedal Edema, Normal Capillary Refill Peripheral Pulses: 2+: Radial (L), Radial (R), Posterior Tibial (L), Posterior Tibial (R), Dorsalis Pedis (L), Dorsalis Pedis (R) Skin: Warm, Dry Neurological: Cranial Nerves Intact (grossly) Neuro Extensive - Mental Status: Alert, Oriented x3, Normal Mood/Affect, Normal Cognition Psychiatric: Alert, Normal Affect, Normal Mood - Patient Data Result Diagrams: 06/30/17 05:53 06/29/17 16:50 *Q Meaningful Use (ADM) - VTE *Q VTE Criteria *Q: - Stroke *Q Stroke Criteria *Q: - AMI *Q AMI Criteria *Q: - Problem List (1) UTI (urinary tract infection) SNOMED Code(s): 75047251 ICD Code: N39.0 - URINARY TRACT INFECTION, SITE NOT SPECIFIED Status: Acute Priority: High Current Visit: Yes Qualifiers: Urinary tract infection type: acute cystitis Hematuria presence: without hematuria Qualified Code(s): N30.00 - Acute cystitis without hematuria (2) C. difficile diarrhea SNOMED Code(s): 6554378691330 ICD Code: A04.72 - ENTEROCOLITIS D/T CLOSTRIDIUM DIFFICILE, NOT SPCF RECUR Status: Acute Priority: High Current Visit: Yes (3) Fever SNOMED Code(s): 407272449 ICD Code: R50.9 - FEVER, UNSPECIFIED Status: Acute Priority: High Current Visit: Yes Qualifiers: Fever type: due to other condition Qualified Code(s): R50.81 - Fever presenting with conditions classified elsewhere (4) HTN (hypertension) SNOMED Code(s): 45407476 ICD Code: I10 - ESSENTIAL (PRIMARY) HYPERTENSION Status: Chronic Priority : Low Current Visit: No Qualifiers: Hypertension type: unspecified Qualified Code(s): I10 - Essential (primary ) hypertension (5) Urinary retention SNOMED Code(s): 376332770 ICD Code: R33.9 - RETENTION OF URINE, UNSPECIFIED Status: Chronic Priority: Medium Current Visit: Yes (6) Other specified depressive episodes SNOMED Code(s): 43618753 ICD Code: F32.89 - OTHER SPECIFIED DEPRESSIVE EPISODES Status: Chronic Priority: Low Current Visit: No (7) Dwarfism SNOMED Code(s): 779351735 ICD Code: E34.3 - SHORT STATURE DUE TO ENDOCRINE DISORDER Status: Chronic Priority: Low Current Visit: No (8) Obesity SNOMED Code(s): 162172011 ICD Code: E66.9 - OBESITY, UNSPECIFIED Status: Chronic Priority: Low Current Visit: Yes Qualifiers: Obesity type: unspecified obesity type Obesity classification: adult class 3 (BMI >= 40) Serious obesity comorbidity presence: with serious comorbidity Body mass index: BMI 40.0-44.9 Qualified Code(s): E66.9 - Obesity, unspecified; Z68.41 - Body mass index (BMI) 40.0-44.9, adult; Z68.41 - Body mass index (BMI) 40.0-44.9, adult; Z68.41 - Body mass index (BMI) 40.0-44.9, adult; Z68.41 - Body mass index (BMI) 40.0-44.9, adult (9) Paroxysmal A-fib SNOMED Code(s): 140071829 ICD Code: I48.0 - PAROXYSMAL ATRIAL FIBRILLATION Status: Chronic Priority : Medium Current Visit: No (10) half-way current use of anticoagulant therapy SNOMED Code(s): 115459052 ICD Code: Z79.01 - 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[employer] (CURRENT) USE OF ANTICOAGULANTS Status: Chronic Priority: Medium Current Visit: No Problem List Initiated/Reviewed/Updated: Yes Orders Last 24hrs: Medication Orders Sodium Chloride (Normal Saline) 1,000 mls @ 100 mls/hr IV ASDIRECTED HO Last Admin: 06/29/17 18:23 Dose: 100 mls/hr Sodium Chloride (Saline Flush) 10 ml FLUSH ASDIRECTED PRN PRN Reason: Keep Vein Open Last Admin: 06/29/17 18:11 Dose: 10 ml Assessment/Plan Comment:: I/P: Acute: AUTI: -Fever, denies other urinary symptoms -Chronic indwelling urinary catheter -History of UTI with Klebsiella sensitive to Rocephin during last visit (06/14-06/18/17) -UA positive -Culture/sensitivity pending -WBC 23.48, CRP 15.9, lactic acid 1.9 -Blood cultures pending -1 gram Rocephin given in ED - continue -Fluids as ordered -Tylenol for fever C. diff infection -Diarrhea noted in ED -History of prior C. diff -Hospitalized 06/14/17-06/18/17 for AUTI and PNA -Recently completed azithromycin and cephalexin treatment -Stool positive for c-diff -Barrier creams -Continue probiotic -Oral vancomycin -Contact precautions -IV fluids/oral hydration Chronic: A-fib - home meds HTN - home/PRN meds SA node dysfunction HLD - home meds Hx/o PE Recurrent PNA Urinary retention with chronic lucero catheter recurrent UTIs Dwarfism hx/o TIA seizures/Epilepsy- home dilantin Spinal stenosis Depression - home meds Mood disorder Obesity Dwarfism mother superior anticoagulation - continue Plan: Admit to medical floor with telemetry CM/SW for discharge planning - [facility] resident PT/OT Other orders as above Routine AM labs Home meds as ordered DVT/PE prophylaxis: Home warfarin - pharmacy to dose GI prophylaxis: Pepcid Code status: Full code; PCP: Dr. Bello at [facility]
[2017-06-29] MEDS ORDERED: Acetaminophen 325 MG Tab PO PRN (20:47)
[2017-06-29] MEDS ORDERED: Ondansetron 4 MG Tab.DIS PO PRN (20:47)
[2017-06-29] MEDS ORDERED: Ondansetron 4 MG/2 ML SDV IV PRN (20:47)
[2017-06-29] MEDS ORDERED: Bisacodyl 5 MG Tab PO PRN (20:47)
[2017-06-29] MEDS ORDERED: Acetaminophen/HYDROcodone 325-5 MG Tab PO PRN (20:47)
[2017-06-29] MEDS ORDERED: Docusate Sodium 100 MG Cap PO PRN (20:47)
[2017-06-29] MEDS ORDERED: Polyethylene Glycol 3350 Powder 17 GM Packet PO PRN (20:47)
[2017-06-29] MEDS ORDERED: Albuterol/Ipratropium 3.0-0.5 MG/3 ML Neb Soln NEB PRN (20:47)
[2017-06-29] MEDS ORDERED: Metoprolol Tartrate 5 MG/5 ML SDV IVPUSH PRN (20:53)
[2017-06-29] MEDS ORDERED: hydrALAZINE 20 MG/ML SDV IVPUSH PRN (20:53)
[2017-06-29] MEDS ORDERED: LORazepam 2 MG/ML MDV IVPUSH PRN (20:53)
[2017-06-29] MEDS: Metoprolol Tartrate 25 MG Tab PO SCH (22:37)
[2017-06-29] MEDS: Hypromellose 0.5% Ophth Soln 15 ML Bottle EYEBOTH SCH (22:58)
[2017-06-30] MEDS: Hypromellose 0.5% Ophth Soln 15 ML Bottle EYEBOTH SCH ×6 (01:26→22:18)
--- NOTE | 2017-06-30 01:26 | EDM.PDOC ---
ED HPI GENERAL MEDICAL PROBLEM - General Chief Complaint: Fever Stated Complaint: FEVER Time Seen by Provider: 06/29/17 16:40 Source of Information: Reports: Patient, Provider, RN, RN Notes Reviewed History Limitations: Reports: No Limitations - History of Present Illness INITIAL COMMENTS - FREE TEXT/NARRATIVE: 72-year-old female presents from [facility] for evaluation and treatment of a fever. Reports she had a temperature of 103.2 at [facility] today. Patient was recently hospitalized for pneumonia, 06/14 to 06/18. She has since finished her antibiotic she was discharged home with. Patient is complaining of some pain in her feet last night. No chest pain, shortness of breath, cough, nausea or vomiting. Patient has a chronic indwelling Lucero catheter. - Related Data Allergies Allergy/AdvReac Type Severity Reaction Status Date / Time latex Allergy Rash Verified 06/13/17 18:36 tree nut Allergy Swollen Verified 06/13/17 18:36 Tongue nitrofurantoin AdvReac Sweating Verified 06/13/17 18:36 Home Meds: Home Meds Acetaminophen [Tylenol] 650 mg PO Q4H PRN 09/02/16 [History] B Complex With Vitamin C [Vitamin B-Complex with Vit C] 1 each PO DAILY [History] Calcium Carbonate/Vitamin D3 [Calcium 500 + Vit D 400] 1 each PO BID 09/02/16 [ History] Docusate Sodium [Colace] 100 mg PO BID 09/02/16 [History] Warfarin [Coumadin] 2.5 mg PO SUMOTUWETHSA 09/02/16 [History] atorvaSTATin [Lipitor] 20 mg PO BEDTIME 09/02/16 [History] Phenytoin [Dilantin] 250 mg CHEW BEDTIME 03/31/17 [History] Alendronate Sodium [Fosamax] 70 mg PO WEEKLY 06/13/17 [History] Warfarin [Coumadin] 1.25 mg PO FR 06/13/17 [History] Azithromycin [Zithromax] 250 mg PO Q24H #5 package 06/18/17 [Rx] Cephalexin [Keflex] 250 mg PO Q6HR #30 cap 06/18/17 [Rx] Hypromellose [Isopto Tears 0.5% Ophth Soln] 0.25 ml EYEBOTH Q4H #15 bottle 06/18 [Rx] Metoprolol Tartrate [Lopressor] 25 mg PO Q8H #90 tablet 06/18/17 [Rx] Saccharomyces Boulardii [Florastor] 250 mg PO BID #20 cap 06/18/17 [Rx] guaiFENesin [Mucinex] 1,200 mg PO BID #30 tab.er 06/18/17 [Rx] Past Medical History HEENT History: Reports: Impaired Vision Cardiovascular History: Reports: Afib, Hypertension, Other (See Below) Other Cardiovascular History: Edema, Thrombosis, SA Node Dysfunction, tachy arrhythmia, HLD Respiratory History: Reports: PE, Pneumonia, Recurrent Other Respiratory History: Embolism Gastrointestinal History: Reports: Other (See Below) Other Gastrointestinal History: Internal Hemorrhoids, Intestinal infection related to C. Diff. Genitourinary History: Reports: Retention, Urinary, UTI, Recurrent, Other (See Below) Other Genitourinary History: obstructive and reflux uropathy, chronic lucero Musculoskeletal History: Reports: Fracture, Other (See Below) Other Musculoskeletal History: Dwarfism Neurological History: Reports: Seizure, TIA, Other (See Below) Other Neuro History: Epilepsy, Spinal Stenosis Psychiatric History: Reports: Depression, Mood Swings, Other (See Below) Other Psychiatric History: mood disorder Endocrine/Metabolic History: Reports: Obesity/BMI 30+ Other Endocrine/Metabolic History: Dwarfism Hematologic History: Reports: Other (See Below) Other Hematologic History: fpc anticoagulation Dermatologic History: Reports: Other (See Below) Other Dermatologic History: edema - Infectious Disease History Infectious Disease History: Reports: C-Difficile, Chicken Pox, Measles, Mumps, Rubella - Past Surgical History HEENT Surgical History: Reports: None Respiratory Surgical History: Reports: None GI Surgical History: Reports: Colon, Colonoscopy Endocrine Surgical History: Reports: None Musculoskeletal Surgical History: Reports: Carpal Tunnel, Other (See Below) Other Musculoskeletal Surgeries/Procedures:: Laminectomy, spinal stenosis Dermatological Surgical History: Reports: None Social & Family History - Family History Family Medical History: Noncontributory - Tobacco Use Smoking Status *Q: Never Smoker Second Hand Smoke Exposure: No - Caffeine Use Caffeine Use: Reports: Tea - Recreational Drug Use Recreational Drug Use: No Drug Use in Last 12 Months: No ED ROS GENERAL - Review of Systems Review Of Systems: See Below Constitutional: Reports: Fever Respiratory: Denies: Shortness of Breath, Cough Cardiovascular: Denies: Chest Pain GI/Abdominal: Denies: Abdominal Pain, Nausea, Vomiting ED EXAM, SEPSIS - Physical Exam Exam: See Below Exam Limited By: No Limitations General Appearance: Alert, WD/WN, No Apparent Distress Eye Exam: Bilateral Eye: Normal Inspection Ears: Normal External Exam Nose: Normal Inspection Throat/Mouth: Normal Inspection, Normal Lips, Normal Oropharynx, Normal Voice, No Airway Compromise Respiratory/Chest: No Respiratory Distress, Lungs Clear, Normal Breath Sounds Cardiovascular: Normal Peripheral Pulses, Regular Rate, Rhythm, No Murmur GI/Abdominal Exam: Soft, Non-Tender Extremities: Normal Inspection, Other (lucero cathater leg bag) Neurological: Alert, Oriented, Normal Cognition Psychiatric: Normal Affect, Normal Mood Skin: Warm, Dry, Normal Color. No: Erythema Course - Vital Signs Last Recorded V/S: Last Vital Signs Temp 38.4 C H 06/29/17 21:18 Pulse 99 06/29/17 22:37 Resp 28 H 06/29/17 15:36 BP 106/60 06/29/17 22:37 Pulse Ox 93 L 06/29/17 15:36 - Orders/Labs/Meds Orders: Active Orders 24 hr Category Date Time Status Insert Lucero Catheter [Insert Urinary Catheter] [OM.PC] Care 06/29/17 19:30 Ordered Q24H Chest 1V Frontal [CR] Stat Exams 06/29/17 17:14 Taken C DIFFICILE BY PCR W/NAP1 [MOLEC] Stat Lab 06/29/17 18:05 Ordered CULTURE BLOOD [BC] Stat Lab 06/29/17 16:50 Received CULTURE BLOOD [BC] Stat Lab 06/29/17 17:20 Received CULTURE URINE [RM] Stat Lab 06/29/17 18:10 Received Sodium Chloride 0.9% [Saline Flush] Med 06/29/17 16:27 Active 10 ml FLUSH ASDIRECTED PRN Blood Culture x2 Reflex Set [OM.PC] Stat Oth 06/29/17 16:27 Ordered Peripheral IV Insertion Adult [OM.PC] Routine Oth 06/29/17 16:27 Ordered Medication Orders Acetaminophen (Tylenol) 650 mg PO Q4H PRN PRN Reason: Pain (Mild 1-3)/fever Last Admin: 06/29/17 21:18 Dose: 650 mg Hydrocodone Bitart/Acetaminophen ([place] 325-5 Mg) 1 tab PO Q4H PRN PRN Reason: Pain (moderate 4-6) Albuterol/Ipratropium (Duoneb 3.0-0.5 Mg/3 Ml) 3 ml NEB Q4H PRN PRN Reason: Shortness Of Breath/wheezing Artificial Tears (Isopto Tears 0.5% Ophth Soln) 0.25 ml EYEBOTH Q4H [facility] Last Admin: 06/29/17 22:58 Dose: 1 drop Bisacodyl (Dulcolax) 5 mg PO DAILY PRN PRN Reason: Constipation Calcium Carbonate (Calcium Carbonate/Vitamin D 1500 Mg-200 Unit) 1 tab PO BID [facility] Docusate Sodium (Colace) 100 mg PO BID PRN PRN Reason: Constipation Guaifenesin (Mucinex) 1,200 mg PO BID [facility] Hydralazine HCl (Apresoline) 10 mg IVPUSH Q6H PRN PRN Reason: Hypertension Ceftriaxone Sodium 1 gm/ (Sodium Chloride) 100 mls @ 200 mls/hr IV Q24H [facility] Sodium Chloride (Normal Saline) 1,000 mls @ 75 mls/hr IV ASDIRECTED [facility] Stop: 07/01/17 10:19 Last Admin: 06/29/17 22:36 Dose: 75 mls/hr Lorazepam (Ativan) 2 mg IVPUSH Q4H PRN PRN Reason: Seizures Metoprolol Tartrate (Lopressor) 5 mg IVPUSH Q4H PRN PRN Reason: Tachycardia Metoprolol Tartrate (Lopressor) 25 mg PO Q8H [facility] Last Admin: 06/29/17 22:37 Dose: 25 mg Ondansetron HCl (Zofran Odt) 4 mg PO Q6H PRN PRN Reason: nausea, able to take PO Ondansetron HCl (Zofran) 4 mg IV Q6H PRN PRN Reason: Nausea/Vomiting Phenytoin Sodium (Dilantin) 250 mg CHEW BEDTIME [facility] Polyethylene Glycol (Miralax) 17 gm PO DAILY PRN PRN Reason: Constipation Saccharomyces Boulardii (Florastor) 250 mg PO BID [facility] Senna/Docusate Sodium (Senna Plus) 1 tab PO BID PRN PRN Reason: Constipation Simvastatin (Zocor) 20 mg PO BEDTIME [facility] Sodium Chloride (Saline Flush) 10 ml FLUSH ASDIRECTED PRN PRN Reason: Keep Vein Open Last Admin: 06/29/17 18:11 Dose: 10 ml Vitamin B Complex/Vitamin C (Super B With Vitamin C) 1 cap PO DAILY [facility] Warfarin Sodium (Pharmacy To Dose - Warfarin) 1 dose .XX ASDIRECTED [facility] Labs: Laboratory Tests 06/29/17 06/29/17 06/29/17 Range/Units 16:50 16:50 16:50 WBC 23.48 H (3.98-10.04) K/mm3 RBC 4.69 (3.98-5.22) M/mm3 Hgb 14.3 (11.2-15.7) gm/L Hct 44.1 (34.1-44.9) % MCV 94.0 (79.4-94.8) fl MCH 30.5 (25.6-32.2) pg MCHC 32.4 (32.2-35.5) g/dl RDW Std Deviation 52.0 H (36.4-46.3) fL Plt Count 424 H (182-369) K/mm3 MPV 10.2 (9.4-12.3) fl Neutrophils % (Manual) 79 H (40-60) % Band Neutrophils % 13 H (0-10) % Lymphocytes % (Manual) 5 L (20-40) % Atypical Lymphs % 0 % Monocytes % (Manual) 2 (2-10) % Eosinophils % (Manual) 0 L (0.7-5.8) % Basophils % (Manual) 0 L (0.1-1.2) Myelocytes % 1 Platelet Estimate Adequate RBC Morph Comment Normal Sodium 137 (136-145) mEq/L Potassium 3.9 (3.5-5.1) mEq/L Chloride 100 (98-107) mEq/L Carbon Dioxide 26 (21-32) mEq/L Anion Gap 14.9 (5-15) BUN 21 H (7-18) mg/dL Creatinine 0.9 (0.55-1.02) mg/dL Est Cr Clr Drug Dosing TNP Estimated GFR (MDRD) > 60 (>60) mL/min BUN/Creatinine Ratio 23.3 H (14-18) Glucose 116 H (83-115) mg/dL Lactic Acid 1.9 (0.4-2.0) mmol/L Calcium 9.2 (8.5-10.1) mg/dL Total Bilirubin 0.4 (0.2-1.0) mg/dL AST 28 (15-37) U/L ALT 40 (14-59) U/L Alkaline Phosphatase 145 H (46-116) U/L C-Reactive Protein 15.9 H* (<1.0) mg/dL Total Protein 7.4 (6.4-8.2) g/dl Albumin 3.3 L (3.4-5.0) g/dl Globulin 4.1 gm/dL Albumin/Globulin Ratio 0.8 L (1-2) Urine Color (Yellow) Urine Appearance (Clear) Urine pH (5.0-8.0) Ur Specific [place] (1.005-1.030) Urine Protein (Negative) Urine Glucose (UA) (Negative) Urine Ketones (Negative) Urine Occult Blood (Negative) Urine Nitrite (Negative) Urine Bilirubin (Negative) Urine Urobilinogen (0.2-1.0) Ur Leukocyte Esterase (Negative) Urine RBC (0-5) /hpf Urine WBC (0-5) /hpf Ur Epithelial Cells (0-5) /hpf Urine Bacteria (FEW) /hpf Urine Mucus (FEW) /hpf 06/29/17 Range/Units 18:11 WBC (3.98-10.04) K/mm3 RBC (3.98-5.22) M/mm3 Hgb (11.2-15.7) gm/L Hct (34.1-44.9) % MCV (79.4-94.8) fl MCH (25.6-32.2) pg MCHC (32.2-35.5) g/dl RDW Std Deviation (36.4-46.3) fL Plt Count (182-369) K/mm3 MPV (9.4-12.3) fl Neutrophils % (Manual) (40-60) % Band Neutrophils % (0-10) % Lymphocytes % (Manual) (20-40) % Atypical Lymphs % % Monocytes % (Manual) (2-10) % Eosinophils % (Manual) (0.7-5.8) % Basophils % (Manual) (0.1-1.2) Myelocytes % Platelet Estimate RBC Morph Comment Sodium (136-145) mEq/L Potassium (3.5-5.1) mEq/L Chloride (98-107) mEq/L Carbon Dioxide (21-32) mEq/L Anion Gap (5-15) BUN (7-18) mg/dL Creatinine (0.55-1.02) mg/dL Est Cr Clr Drug Dosing Estimated GFR (MDRD) (>60) mL/min BUN/Creatinine Ratio (14-18) Glucose (83-115) mg/dL Lactic Acid (0.4-2.0) mmol/L Calcium (8.5-10.1) mg/dL Total Bilirubin (0.2-1.0) mg/dL AST (15-37) U/L ALT (14-59) U/L Alkaline Phosphatase (46-116) U/L C-Reactive Protein (<1.0) mg/dL Total Protein (6.4-8.2) g/dl Albumin (3.4-5.0) g/dl Globulin gm/dL Albumin/Globulin Ratio (1-2) Urine Color Yellow (Yellow) Urine Appearance Clear (Clear) Urine pH 5.5 (5.0-8.0) Ur Specific [place] > or = 1.030 (1.005-1.030) Urine Protein 1+ H (Negative) Urine Glucose (UA) Negative (Negative) Urine Ketones 1+ H (Negative) Urine Occult Blood 2+ H (Negative) Urine Nitrite Positive H (Negative) Urine Bilirubin Negative (Negative) Urine Urobilinogen 0.2 (0.2-1.0) Ur Leukocyte Esterase 1+ H (Negative) Urine RBC 5-10 H (0-5) /hpf Urine WBC 10-20 H (0-5) /hpf Ur Epithelial Cells 0-5 (0-5) /hpf Urine Bacteria Many H (FEW) /hpf Urine Mucus Few (FEW) /hpf Meds: Medications Generic Name Dose Route Start Last Admin Trade Name Freq PRN Reason Stop Dose Admin Acetaminophen 650 mg 06/29/17 20:47 06/29/17 21:18 Tylenol PO 650 mg Q4H PRN Administration Pain (Mild 1-3)/fever Hydrocodone Bitart/Acetaminophen 1 tab 06/29/17 20:47 [place] 325-5 Mg PO Q4H PRN Pain (moderate 4-6) Albuterol/Ipratropium 3 ml 06/29/17 20:47 Duoneb 3.0-0.5 Mg/3 Ml NEB Q4H PRN Shortness Of Breath/wheezing Artificial Tears 0.25 ml 06/29/17 22:00 06/29/17 22:58 Isopto Tears 0.5% Ophth Soln EYEBOTH 1 drop Q4H HO Administration Bisacodyl 5 mg 06/29/17 20:47 Dulcolax PO DAILY PRN Constipation Calcium Carbonate 1 tab 06/30/17 09:00 Calcium Carbonate/Vitamin D 1500 Mg-200 Unit PO BID [facility] Docusate Sodium 100 mg 06/29/17 20:47 Colace PO BID PRN Constipation Guaifenesin 1,200 mg 06/30/17 09:00 Mucinex PO BID [facility] Hydralazine HCl 10 mg 06/29/17 20:53 Apresoline IVPUSH Q6H PRN Hypertension Ceftriaxone Sodium 1 gm/ 100 mls @ 200 mls/hr 06/30/17 18:00 Sodium Chloride IV Q24H [facility] Sodium Chloride 1,000 mls @ 75 mls/hr 06/29/17 21:00 06/29/17 22:36 Normal Saline IV 07/01/17 10:19 75 mls/hr ASDIRECTED [facility] Administration Lorazepam 2 mg 06/29/17 20:53 Ativan IVPUSH Q4H PRN Seizures Metoprolol Tartrate 5 mg 06/29/17 20:53 Lopressor IVPUSH Q4H PRN Tachycardia Metoprolol Tartrate 25 mg 06/29/17 22:00 06/29/17 22:37 Lopressor PO 25 mg Q8H [facility] Administration Ondansetron HCl 4 mg 06/29/17 20:47 Zofran Odt PO Q6H PRN nausea, able to take PO Ondansetron HCl 4 mg 06/29/17 20:47 Zofran IV Q6H PRN Nausea/Vomiting Phenytoin Sodium 250 mg 06/30/17 21:00 Dilantin CHEW BEDTIME [facility] Polyethylene Glycol 17 gm 06/29/17 20:47 Miralax PO DAILY PRN Constipation Saccharomyces Boulardii 250 mg 06/30/17 09:00 Florastor PO BID [facility] Senna/Docusate Sodium 1 tab 06/29/17 20:47 Senna Plus PO BID PRN Constipation Simvastatin 20 mg 06/30/17 21:00 Zocor PO BEDTIME HO Sodium Chloride 10 ml 06/29/17 16:27 06/29/17 18:11 Saline Flush FLUSH 10 ml ASDIRECTED PRN Administration Keep Vein Open Vitamin B Complex/Vitamin C 1 cap 06/30/17 09:00 Super B With Vitamin C PO DAILY HO Warfarin Sodium 1 dose 06/29/17 21:15 Pharmacy To Dose - Warfarin .XX ASDIRECTED HO Discontinued Medications Generic Name Dose Route Start Last Admin Trade Name Alhaji PRN Reason Stop Dose Admin Ceftriaxone Sodium 1 gm/ 100 mls @ 200 mls/hr 06/29/17 18:05 06/29/17 18:23 Sodium Chloride IV 06/29/17 18:34 200 mls/hr ONETIME ONE Administration Sodium Chloride 1,000 mls @ 100 mls/hr 06/29/17 18:15 06/29/17 18:23 Normal Saline IV 100 mls/hr ASDIRECTED HO Administration - Radiology Interpretation Free Text/Narrative:: Chest x-ray showed no acute intrathoracic process. Formal radiology read pending. - Re-Assessments/Exams Free Text/Narrative Re-Assessment/Exam: 06/29/17 20:24 Labs returned. Influenza is negative. She has a urinary tract infection. This is likely causing her laboratory changes and fevers. Blood and urine cultures have been sent. Concern for sepsis. Given that she is not in shock I did not give her the flu bolus of 30 mils per kilogram. She has received 1 g IV Rocephin while in the ER. Nursing staff reports that she did have an episode of diarrhea. I have ordered a C. difficile sample. Case discussed with Dr. Tobias, hospitalist on-call. She is seen the patient in the ER. she knows her well as she just admitted her recently. Plan will be to admit. Departure - Departure Time of Disposition: 21:15 Disposition: Admitted As Inpatient 65 Condition: Poor Clinical Impression: UTI (urinary tract infection), Fever - Discharge Information - My Orders Last 24 Hours: My Active Orders 06/29/17 16:27 Sodium Chloride 0.9% [Saline Flush] 10 ml FLUSH ASDIRECTED PRN Blood Culture x2 Reflex Set [OM.PC] Stat Peripheral IV Insertion Adult [OM.PC] Routine 06/29/17 16:50 CULTURE BLOOD [BC] Stat 06/29/17 17:14 Chest 1V Frontal [CR] Stat 06/29/17 17:20 CULTURE BLOOD [BC] Stat 06/29/17 18:05 C DIFFICILE BY PCR W/NAP1 [MOLEC] Stat 06/29/17 18:10 CULTURE URINE [RM] Stat 06/29/17 19:30 Insert Lucero Catheter [Insert Urinary Catheter] [OM.PC] Q24H - Assessment/Plan Last 24 Hours: My Active Orders 06/29/17 16:27 Sodium Chloride 0.9% [Saline Flush] 10 ml FLUSH ASDIRECTED PRN Blood Culture x2 Reflex Set [OM.PC] Stat Peripheral IV Insertion Adult [OM.PC] Routine 06/29/17 16:50 CULTURE BLOOD [BC] Stat 06/29/17 17:14 Chest 1V Frontal [CR] Stat 06/29/17 17:20 CULTURE BLOOD [BC] Stat 06/29/17 18:05 C DIFFICILE BY PCR W/NAP1 [MOLEC] Stat 06/29/17 18:10 CULTURE URINE [RM] Stat 06/29/17 19:30 Insert Lucero Catheter [Insert Urinary Catheter] [OM.PC] Q24H
[2017-06-30] MEDS: Metoprolol Tartrate 25 MG Tab PO SCH ×3 (06:31→22:05)
[2017-06-30] MEDS: Sodium Chloride 0.9% 1,000 ML IV SCH ×2 (07:15→17:38)
--- NOTE | 2017-06-30 07:35 | CR ---
Chest: Portable view of the chest was obtained. Comparison: Prior chest x-ray of 06/17/17. Heart size is normal. Tortuous thoracic aorta is seen. Minimal parenchymal density within the right lung base is seen which is felt to be incidental and improved from previous exam. Lungs otherwise are clear. Bony structures are stable. Impression: 1. Minimal scarring within the right lung base. Other incidental findings. 2. Nothing acute is appreciated. Diagnostic code #2
[2017-06-30] MEDS: Potassium Chloride 10 MEQ in Premix Bag 1 BAG IV SCH ×6 (08:31→14:18)
[2017-06-30] MEDS: Famotidine 20 MG Tab PO SCH ×2 (08:35→22:05)
[2017-06-30] MEDS: Vitamin B Complex With Vitamin C Cap PO SCH (08:35)
[2017-06-30] MEDS: Saccharomyces Boulardii (Probiotic) 250 MG Cap PO SCH ×2 (08:35→22:17)
[2017-06-30] MEDS: Calcium Carbonate/Vitamin D3 600 MG-200 Units Tab PO SCH ×2 (08:35→22:18)
[2017-06-30] MEDS: guaiFENesin 600 MG Tab.ER PO SCH ×2 (08:35→22:05)
[2017-06-30] MEDS ORDERED: Vancomycin 50 MG/ML 150ML Oral Solution Kit PO SCH (09:00)
--- NOTE | 2017-06-30 09:07 | PCM.PN ---
- General Info Admission Dx/Problem (Free Text): Admission Diagnosis/Problem Admission Diagnosis/Problem Pneumonia Subjective Update: In to see Indira. She is lying in bed. She reports she did not sleep well due to being woken up frequently. She had several episodes of diarrhea throughout the night. Her buttocks is quite raw. Barrier lotion is being applied. She denies any other complaints. - Review of Systems General: Reports: No Symptoms. Denies: Fever, Weakness, Fatigue, Malaise, Chills HEENT: Reports: No Symptoms Pulmonary: Reports: No Symptoms. Denies: Shortness of Breath, Cough, Sputum, Wheezing Cardiovascular: Reports: No Symptoms. Denies: Chest Pain, Palpitations Gastrointestinal: Reports: Diarrhea. Denies: Abdominal Pain, Constipation, Decreased Appetite, Nausea, Vomiting Genitourinary: Reports: Retention Musculoskeletal: Reports: No Symptoms Skin: Reports: Other (raw buttocks from frequent diarrhea ) Neurological: Reports: No Symptoms Psychiatric: Reports: No Symptoms - Patient Data Vitals - Most Recent: Last Vital Signs Temp 98.4 F 06/30/17 08:04 Pulse 72 06/30/17 08:04 Resp 16 06/30/17 08:04 BP 117/85 06/30/17 08:04 Pulse Ox 95 06/30/17 08:04 Weight - Most Recent: 133 lb I&O - Last 24 Hours: Intake & Output 06/29/17 06/30/17 06/30/17 22:59 06:59 14:59 Intake Total 825 Output Total 125 Balance 700 Lab Results Last 24 Hours: Laboratory Results - last 24 hr 06/30/17 06/30/17 06/30/17 Range/Units 05:53 05:53 05:53 WBC 18.40 H (3.98-10.04) K/mm3 RBC 3.72 L (3.98-5.22) M/mm3 Hgb 11.5 (11.2-15.7) gm/L Hct 35.2 (34.1-44.9) % MCV 94.6 (79.4-94.8) fl MCH 30.9 (25.6-32.2) pg MCHC 32.7 (32.2-35.5) g/dl RDW Std Deviation 50.9 H (36.4-46.3) fL Plt Count 299 (182-369) K/mm3 MPV 9.9 (9.4-12.3) fl Neut % (Auto) 84.1 H (34.0-71.1) % Lymph % (Auto) 4.3 L (19.3-51.7) % [place] % (Auto) 11.0 (4.7-12.5) % Eos % (Auto) 0.1 L (0.7-5.8) Baso % (Auto) 0.2 (0.1-1.2) % Neut # (Auto) 15.49 H (1.56-6.13) K/mm3 Lymph # (Auto) 0.79 L (1.18-3.74) K/mm3 [place] # (Auto) 2.02 H (0.24-0.36) K/mm3 Eos # (Auto) 0.02 L (0.04-0.36) K/mm3 Baso # (Auto) 0.03 (0.01-0.08) K/mm3 Manual Slide Review Normal smear PT 30.5 H (8.0-13.0) SECONDS INR 2.82 Sodium 140 (136-145) mEq/L Potassium 3.1 L (3.5-5.1) mEq/L Chloride 107 (98-107) mEq/L Carbon Dioxide 23 (21-32) mEq/L Anion Gap 13.1 (5-15) BUN 21 H (7-18) mg/dL Creatinine 0.5 L (0.55-1.02) mg/dL Est Cr Clr Drug Dosing 71.98 mL/min Estimated GFR (MDRD) > 60 (>60) mL/min BUN/Creatinine Ratio 42.0 H (14-18) Glucose 89 (83-115) mg/dL Calcium 7.8 L (8.5-10.1) mg/dL Magnesium 1.8 (1.8-2.4) mg/dl C-Reactive Protein 19.9 H* (<1.0) mg/dL Bong Results Last 24 Hours: Microbiology 06/29/17 20:54 Stool for WBCs - Final Stool / Feces Med Orders - Current: Current Medications Acetaminophen (Tylenol) 650 mg PO Q4H PRN PRN Reason: Pain (Mild 1-3)/fever Last Admin: 06/29/17 21:18 Dose: 650 mg Hydrocodone Bitart/Acetaminophen ([place] 325-5 Mg) 1 tab PO Q4H PRN PRN Reason: Pain (moderate 4-6) Albuterol/Ipratropium (Duoneb 3.0-0.5 Mg/3 Ml) 3 ml NEB Q4H PRN PRN Reason: Shortness Of Breath/wheezing Artificial Tears (Isopto Tears 0.5% Ophth Soln) 0.25 ml EYEBOTH Q4H [facility] Last Admin: 06/30/17 06:00 Dose: 1 drop Bisacodyl (Dulcolax) 5 mg PO DAILY PRN PRN Reason: Constipation Calcium Carbonate (Calcium Carbonate/Vitamin D 1500 Mg-200 Unit) 1 tab PO BID [facility] Last Admin: 06/30/17 08:35 Dose: 1 tab Docusate Sodium (Colace) 100 mg PO BID PRN PRN Reason: Constipation Famotidine (Pepcid) 20 mg PO BID [facility] Last Admin: 06/30/17 08:35 Dose: 20 mg Guaifenesin (Mucinex) 1,200 mg PO BID [facility] Last Admin: 06/30/17 08:35 Dose: 1,200 mg Hydralazine HCl (Apresoline) 10 mg IVPUSH Q6H PRN PRN Reason: Hypertension Ceftriaxone Sodium 1 gm/ (Sodium Chloride) 100 mls @ 200 mls/hr IV Q24H [facility] Sodium Chloride (Normal Saline) 1,000 mls @ 125 mls/hr IV ASDIRECTED [facility] Last Admin: 06/30/17 07:15 Dose: 125 mls/hr Potassium Chloride 10 meq/ (Premix) 100 mls @ 100 mls/hr IV Q1H [facility] Stop: 06/30/17 13:29 Last Admin: 06/30/17 08:31 Dose: 100 mls/hr Lorazepam (Ativan) 2 mg IVPUSH Q4H PRN PRN Reason: Seizures Metoprolol Tartrate (Lopressor) 5 mg IVPUSH Q4H PRN PRN Reason: Tachycardia Metoprolol Tartrate (Lopressor) 25 mg PO Q8H [facility] Last Admin: 06/30/17 06:31 Dose: Not Given Metronidazole (Flagyl) 500 mg PO Q8H [facility] Ondansetron HCl (Zofran Odt) 4 mg PO Q6H PRN PRN Reason: nausea, able to take PO Ondansetron HCl (Zofran) 4 mg IV Q6H PRN PRN Reason: Nausea/Vomiting Phenytoin Sodium (Dilantin) 250 mg CHEW BEDTIME [facility] Polyethylene Glycol (Miralax) 17 gm PO DAILY PRN PRN Reason: Constipation Saccharomyces Boulardii (Florastor) 250 mg PO BID [facility] Last Admin: 06/30/17 08:35 Dose: 250 mg Senna/Docusate Sodium (Senna Plus) 1 tab PO BID PRN PRN Reason: Constipation Simvastatin (Zocor) 20 mg PO BEDTIME [facility] Sodium Chloride (Saline Flush) 10 ml FLUSH ASDIRECTED PRN PRN Reason: Keep Vein Open Last Admin: 06/29/17 18:11 Dose: 10 ml Vitamin B Complex/Vitamin C (Super B With Vitamin C) 1 cap PO DAILY [facility] Last Admin: 06/30/17 08:35 Dose: 1 cap Warfarin Sodium (Pharmacy To Dose - Warfarin) 0 dose .XX ASDIRECTED PRN PRN Reason: RX TO DOSE COUMADIN Discontinued Medications Ceftriaxone Sodium 1 gm/ (Sodium Chloride) 100 mls @ 200 mls/hr IV ONETIME ONE Stop: 06/29/17 18:34 Last Admin: 06/29/17 18:23 Dose: 200 mls/hr Sodium Chloride (Normal Saline) 1,000 mls @ 100 mls/hr IV ASDIRECTED [facility] Last Admin: 06/29/17 18:23 Dose: 100 mls/hr Sodium Chloride (Normal Saline) 1,000 mls @ 75 mls/hr IV ASDIRECTED [facility] Stop: 07/01/17 10:19 Last Admin: 06/29/17 22:36 Dose: 75 mls/hr - Exam Quality Assessment: DVT Prophylaxis General: Alert, Oriented, Cooperative, No Acute Distress HEENT: Pupils Equal, Pupils Reactive, EOMI, Mucous Membr. Moist/[place] Neck: Supple, Trachea Midline, No JVD Lungs: Clear to Auscultation, Normal Respiratory Effort Cardiovascular: Regular Rate, Regular Rhythm GI/Abdominal Exam: Normal Bowel Sounds, Soft, Non-Tender, No Organomegaly, No Distention, No Abnormal Bruit, No Mass, Pelvis Stable (Female) Exam: Deferred Extremities: Normal Inspection, Normal Range of Motion, Non-Tender, No Pedal Edema, Normal Capillary Refill Peripheral Pulses: 1+: Posterior Tibial (L), Posterior Tibial (R), Dorsalis Pedis (L), Dorsalis Pedis (R), 2+: Radial (L), Radial (R) Skin: Warm, Dry, Intact Neurological: No New Focal Deficit Psy/Mental Status: Alert, Normal Affect, Normal Mood - Problem List & Annotations (1) UTI (urinary tract infection) SNOMED Code(s): 39031667 Code(s): N39.0 - URINARY TRACT INFECTION, SITE NOT SPECIFIED Status: Acute Priority: High Current Visit: Yes Qualifiers: Urinary tract infection type: acute cystitis Hematuria presence: without hematuria Qualified Code(s): N30.00 - Acute cystitis without hematuria (2) C. difficile diarrhea SNOMED Code(s): 4923840707452 Code(s): A04.72 - ENTEROCOLITIS D/T CLOSTRIDIUM DIFFICILE, NOT SPCF RECUR Status: Acute Priority: High Current Visit: Yes (3) Fever SNOMED Code(s): 482482319 Code(s): R50.9 - FEVER, UNSPECIFIED Status: Acute Priority: High Current Visit: Yes Qualifiers: Fever type: due to other condition Qualified Code(s): R50.81 - Fever presenting with conditions classified elsewhere (4) HTN (hypertension) SNOMED Code(s): 20344099 Code(s): I10 - ESSENTIAL (PRIMARY) HYPERTENSION Status: Chronic Priority : Low Current Visit: No Qualifiers: Hypertension type: unspecified Qualified Code(s): I10 - Essential (primary ) hypertension (5) Urinary retention SNOMED Code(s): 725026831 Code(s): R33.9 - RETENTION OF URINE, UNSPECIFIED Status: Chronic Priority : Medium Current Visit: Yes (6) Other specified depressive episodes SNOMED Code(s): 03343892 Code(s): F32.89 - OTHER SPECIFIED DEPRESSIVE EPISODES Status: Chronic Priority: Low Current Visit: No (7) Dwarfism SNOMED Code(s): 718911180 Code(s): E34.3 - SHORT STATURE DUE TO ENDOCRINE DISORDER Status: Chronic Priority: Low Current Visit: No (8) Obesity SNOMED Code(s): 965077349 Code(s): E66.9 - OBESITY, UNSPECIFIED Status: Chronic Priority: Low Current Visit: Yes Qualifiers: Obesity type: unspecified obesity type Obesity classification: adult class 3 (BMI >= 40) Serious obesity comorbidity presence: with serious comorbidity Body mass index: BMI 40.0-44.9 Qualified Code(s): E66.9 - Obesity, unspecified; Z68.41 - Body mass index (BMI) 40.0-44.9, adult; Z68.41 - Body mass index (BMI) 40.0-44.9, adult; Z68.41 - Body mass index (BMI) 40.0-44.9, adult; Z68.41 - Body mass index (BMI) 40.0-44.9, adult (9) Paroxysmal A-fib SNOMED Code(s): 941848153 Code(s): I48.0 - PAROXYSMAL ATRIAL FIBRILLATION Status: Chronic Priority : Medium Current Visit: No (10) care home current use of anticoagulant therapy SNOMED Code(s): 047752148 Code(s): Z79.01 - PERSONAL FITNESS MANAGER (CURRENT) USE OF ANTICOAGULANTS Status: Chronic Priority: Medium Current Visit: No - Problem List Review Problem List Initiated/Reviewed/Updated: Yes - My Orders Last 24 Hours: My Active Orders 06/29/17 20:47 Height and Weight [RC] 04 Oxygen Therapy [RC] PRN Up to Chair [RC] BIDAC VTE/DVT Education [RC] DAILY Vital Signs [RC] Q4HR Consult to Case Management [CONS] Routine Consult to Clinic Charge Nurse [CONS] Routine OT Evaluation and Treatment [CONS] Routine PT Evaluation and Treatment [CONS] Routine Acetaminophen [Tylenol] 650 mg PO Q4H PRN Acetaminophen/HYDROcodone [[place] 325-5 MG] 1 tab PO Q4H PRN Albuterol/Ipratropium [DuoNeb 3.0-0.5 MG/3 ML] 3 ml NEB Q4H PRN Bisacodyl [Dulcolax] 5 mg PO DAILY PRN Docusate Sodium [Colace] 100 mg PO BID PRN Docusate Sodium/Sennosides [Senna Plus] 1 tab PO BID PRN Ondansetron [Zofran ODT] 4 mg PO Q6H PRN Ondansetron [Zofran] 4 mg IV Q6H PRN Polyethylene Glycol 3350 [MiraLAX] 17 gm PO DAILY PRN Resuscitation Status Routine 06/29/17 20:48 Pulse Oximetry [RC] PRN 06/29/17 20:51 RT Aerosol Therapy [RC] ASDIRECTED 06/29/17 20:53 LORazepam [Ativan] 2 mg IVPUSH Q4H PRN Metoprolol Tartrate [Lopressor] 5 mg IVPUSH Q4H PRN hydrALAZINE [Apresoline] 10 mg IVPUSH Q6H PRN 06/29/17 20:54 CULTURE STOOL + SHIGATOX [RM] Routine 06/29/17 20:55 Isolation [COMM] Routine 06/29/17 20:58 Precautions [COMM] Routine 06/29/17 21:09 Admission Status [Patient Status] [ADT] Routine 06/29/17 21:15 Warfarin Pharmacy to Dose [Pharmacy to Dose - Warfarin] 0 dose .XX ASDIRECTED PRN 06/29/17 22:00 Hypromellose [Isopto Tears 0.5% Ophth Soln] 0.25 ml EYEBOTH Q4H Metoprolol Tartrate [Lopressor] 25 mg PO Q8H 06/30/17 06:45 Sodium Chloride 0.9% [Normal Saline] 1,000 ml IV ASDIRECTED 06/30/17 07:30 Potassium Chloride [KCl 10 MEQ in Water 100 ML] 10 meq Premix Bag 1 bag IV Q1H 06/30/17 08:59 Blood Culture x2 Reflex Set [OM.PC] Stat 06/30/17 09:00 CULTURE BLOOD [BC] Stat CULTURE BLOOD [BC] Stat LACTIC ACID [CHEM] Routine Calcium Carbonate/Vitamin D3 [Calcium Carbonate/Vitamin D 1500 MG-200 Unit] 1 tab PO BID Famotidine [Pepcid] 20 mg PO BID Saccharomyces Boulardii [Florastor] 250 mg PO BID Vitamin B Complex with C [Super B With Vitamin C] 1 cap PO DAILY guaiFENesin [Mucinex] 1,200 mg PO BID metroNIDAZOLE [Flagyl] 500 mg PO Q8H 06/30/17 18:00 cefTRIAXone [Rocephin] 1 gm Sodium Chloride 0.9% [Normal Saline] 100 ml IV Q24H 06/30/17 21:00 Phenytoin [Dilantin] 250 mg CHEW BEDTIME Simvastatin [Zocor] 20 mg PO BEDTIME 07/01/17 05:11 BASIC METABOLIC PANEL,BMP [CHEM] AM CBC WITH AUTO DIFF [HEME] AM CRP [C-REACTIVE PROTEIN] [CHEM] AM INR,PT,PROTHROMBIN TIME [COAG] AM MAGNESIUM [CHEM] AM 07/02/17 05:11 BASIC METABOLIC PANEL,BMP [CHEM] AM CBC WITH AUTO DIFF [HEME] AM CRP [C-REACTIVE PROTEIN] [CHEM] AM INR,PT,PROTHROMBIN TIME [COAG] AM MAGNESIUM [CHEM] AM 07/03/17 05:11 BASIC METABOLIC PANEL,BMP [CHEM] AM CBC WITH AUTO DIFF [HEME] AM CRP [C-REACTIVE PROTEIN] [CHEM] AM INR,PT,PROTHROMBIN TIME [COAG] AM MAGNESIUM [CHEM] AM - Plan Plan:: I/P: Acute: AUTI: -Fever, denies other urinary symptoms -Chronic indwelling urinary catheter -History of UTI with Klebsiella sensitive to Rocephin during last visit (06/14-06/18/17) -UA positive -Culture/sensitivity pending -WBC 23.48-->18.4, CRP 15.9-->19.9, lactic acid 1.9 -Blood cultures - insufficient quantity, repeat ordered -1 gram Rocephin given in ED - continue -Fluids as ordered -Tylenol for fever C. diff infection -Diarrhea noted in ED -History of prior C. diff - patient reports around 5 years ago -Hospitalized 06/14/17-06/18/17 for AUTI and PNA -Recently completed azithromycin and cephalexin treatment -Stool positive for c-diff -Barrier creams -Continue probiotic -Oral flagyl -Contact precautions -IV fluids/oral hydration -Stool rare WBCs Hypokalemia -Potassium 3.1 -Supplement and monitor Chronic: A-fib - home meds HTN - home/PRN meds SA node dysfunction HLD - home meds Hx/o PE Recurrent PNA Urinary retention with chronic lucero catheter recurrent UTIs Dwarfism hx/o TIA seizures/Epilepsy- home dilantin Spinal stenosis Depression - home meds Mood disorder Obesity Dwarfism care home anticoagulation - continue Plan: Admit to medical floor with telemetry CM/SW for discharge planning - [facility] resident PT/OT Other orders as above Routine AM labs Home meds as ordered DVT/PE prophylaxis: Home warfarin - pharmacy to dose GI prophylaxis: Pepcid Code status: Full code; PCP: Dr. Bello at [facility]
[2017-06-30] MEDS: metroNIDAZOLE 500 MG Tab PO SCH ×2 (09:32→17:41)
[2017-06-30] MEDS ORDERED: cefTRIAXone 1 GM in Sodium Chloride 0.9% 100 ML IV SCH (18:00)
[2017-06-30] MEDS ORDERED: Warfarin 2.5 MG Tab PO SCH (18:00)
[2017-06-30] MEDS ORDERED: Phenytoin 50 MG Tab.Chew CHEW SCH (21:00)
[2017-06-30] MEDS ORDERED: Simvastatin 20 MG Tab PO SCH (21:00)
[2017-07-01] MEDS: Sodium Chloride 0.9% 1,000 ML IV SCH ×2 (01:35→09:30)
[2017-07-01] MEDS: metroNIDAZOLE 500 MG Tab PO SCH ×2 (01:36→09:27)
[2017-07-01] MEDS: Hypromellose 0.5% Ophth Soln 15 ML Bottle EYEBOTH SCH ×3 (01:55→09:28)
[2017-07-01] MEDS: Metoprolol Tartrate 25 MG Tab PO SCH (08:15)
[2017-07-01] MEDS: Vitamin B Complex With Vitamin C Cap PO SCH (09:27)
[2017-07-01] MEDS: Saccharomyces Boulardii (Probiotic) 250 MG Cap PO SCH (09:27)
[2017-07-01] MEDS: Calcium Carbonate/Vitamin D3 600 MG-200 Units Tab PO SCH (09:27)
[2017-07-01] MEDS: Famotidine 20 MG Tab PO SCH (09:27)
[2017-07-01] MEDS: guaiFENesin 600 MG Tab.ER PO SCH (09:28)
[2017-07-01] MEDS ORDERED: cefTRIAXone 2 GM in Sodium Chloride 0.9% 100 ML IV SCH ×2 (10:00→10:54)
--- NOTE | 2017-07-01 11:57 | PCM.DCSUM1 ---
Discharge Summary - Hospital Course Free Text/Narrative:: 72 yo female who presents to our ED today (06/29/17) from [facility] with reports of a fever of 103.2. She was recently hospitalized from 06/14-06/18 with pneumonia. She was discharged home with antibiotics and finished treatment. She reportedly has had some pain in her feet over the past night. Denies chest pain, shortness of breath, cough, nausea, vomiting. She does have a chronic indwelling Lucero catheter. Temp was 38.4 Celsius. Pulse 99. Respirations 20. Blood pressure 106/60. Pulse ox 93%. Labs were obtained: 30 mL her elevated at 23.48. Hemoglobin 14.3. Hematocrit 44.1. She is normocytic. Plans were elevated at 424,000. Neutrophils were high at 79%. There is 13% band neutrophils. Sodium is 134. Potassium 3.9. Chloride 100. Carbon dioxide 26. Anion gap is on the high end of normal at 14.9. BUN is 21. Creatinine 0.9. EGFR greater than 60. Glucose is 116. Lactic acid 1.9. Calcium 9.2. Bilirubin 0.4. AST was 20, ALT 40, alkaline phosphatase 145. CRP is elevated at 15.9. Protein is 7.4. Albumin low at 3.3. UA is obtained and is positive. It shows a specific gravity of greater than or equal to 1.030. Protein is one plus. Ketones are 1+. O [place] is 2+. Nitrite is positive. Leukoesterase is one plus. Urine RBCs are 5-10. Urine W Caesar 1020. Many bacteria noted. She was started on normal saline and given Rocephin. Chest x-rays obtained shows no acute intrathoracic process with formal radiology read pending. Influenza screen is negative. Blood and urine cultures have been sent. She did have an episode of diarrhea and a C. difficile sample was sent. She carries a history of: A. fib, hypertension, SA node dysfunction, HLD, recurrent pneumonia, PE, urinary retention, recurrent UTI, chronic Lucero catheter, dwarfism, seizure, TIA, epilepsy, spinal stenosis, depression, mood swings, mood disorder, obesity. She has had a prior C. difficile infection. She is subsequently admitted to the medical floor on telemetry. She is a full code. Her PCP is Dr. Bello at [place]. - Discharge Data Discharge Date: 07/01/17 Discharge Disposition: DC/Tfer to SNF 03 Condition: Good - Patient Summary/Data Consults: Consultations 06/29/17 20:47 Consult to Case Management [CONS] Routine Consult to Pharmacy Aide [CONS] Routine - Patient Instructions Diet: Usual Diet as Tolerated Activity: As Tolerated Driving: Do Not Drive Showering/Bathing: May Shower Notify Provider of: Fever, Nausea and/or Vomiting Other/Special Instructions: Hold Coumadin for 48 hours, resume home dose on 07/03/17. - Discharge Plan Prescriptions/Med Rec: Cephalexin [Keflex] 250 mg PO Q6HR #20 cap metroNIDAZOLE [Flagyl] 500 mg PO Q8H #30 tablet Home Medications: Home Meds Acetaminophen [Tylenol] 650 mg PO Q4H PRN 09/02/16 [History] B Complex With Vitamin C [Vitamin B-Complex with Vit C] 1 tab PO DAILY 09/02/16 [History] Calcium Carbonate/Vitamin D3 [Calcium 500 + Vit D 400] 1 tab PO BID 09/02/16 [ History] Warfarin [Coumadin] 2.5 mg PO SUMOTUWETHSA 09/02/16 [History] atorvaSTATin [Lipitor] 20 mg PO BEDTIME 09/02/16 [History] Phenytoin [Dilantin] 250 mg CHEW BEDTIME 03/31/17 [History] Alendronate Sodium [Fosamax] 70 mg PO WEEKLY 06/13/17 [History] Warfarin [Coumadin] 1.25 mg PO FR 06/13/17 [History] Hypromellose [Isopto Tears 0.5% Ophth Soln] 0.25 ml EYEBOTH Q4H #15 bottle 06/18 [Rx] Metoprolol Tartrate [Lopressor] 25 mg PO Q8H #90 tablet 06/18/17 [Rx] Saccharomyces Boulardii [Florastor] 250 mg PO BID #20 cap 06/18/17 [Rx] guaiFENesin [Mucinex] 1,200 mg PO BID #30 tab.er 06/18/17 [Rx] Cephalexin [Keflex] 250 mg PO Q6HR #20 cap 07/01/17 [Rx] metroNIDAZOLE [Flagyl] 500 mg PO Q8H #30 tablet 07/01/17 [Rx] Forms: ED Department Discharge Referrals: Aliza Bello MD [Primary Care Provider] - (Please make appointment to follow-up in 7-10 days.) - Discharge Summary/Plan Comment DC Time >30 min.: No Discharge Summary/Plan Comment: Impression/Plan: UTI: -Fever, denies other urinary symptoms -Chronic indwelling urinary catheter -History of UTI with Klebsiella sensitive to Rocephin during last visit (06/14-06/18/17) -UA positive -Culture/sensitivity noted for choice of ATB, Rocephin--->Keflex at DC for 5 days. -WBC 23.48-->18.4, CRP 15.9-->19.9, lactic acid 1.9 -Fluids as ordered -Tylenol for fever C. diff infection -Diarrhea noted in ED -History of prior C. diff - patient reports around 5 years ago -Hospitalized 06/14/17-06/18/17 for AUTI and PNA -Recently completed azithromycin and cephalexin treatment -Stool positive for c-diff -Barrier creams -Continue probiotic -Oral flagyl 500 mg TID for 10 days.; contact isolation. -Contact precautions -IV fluids/oral hydration -Stool rare WBCs Hypokalemia--->replaced -Supplement and monitor Chronic: A-fib - home meds HTN - home/PRN meds SA node dysfunction HLD - home meds Hx/o PE Recurrent PNA Urinary retention with chronic lucero catheter recurrent UTIs Dwarfism hx/o TIA seizures/Epilepsy- home dilantin Spinal stenosis Depression - home meds Mood disorder Obesity Dwarfism detention anticoagulation - continue however hold until 07/03/17 Plan: CM/SW for discharge planning - [facility] resident, returning today, 07/01/17 PT/OT Other orders as above Routine AM labs Home meds as ordered DVT/PE prophylaxis GI prophylaxis: Pepcid Code status: Full code; PCP: Dr. Bello at [facility] Additional CC's: Aliza Bello - General Info Date of Service: 06/29/17 Functional Status: Reports: Tolerating Diet, Ambulating - Review of Systems General: Reports: No Symptoms HEENT: Reports: No Symptoms Pulmonary: Reports: No Symptoms Cardiovascular: Reports: No Symptoms Gastrointestinal: Reports: No Symptoms Genitourinary: Reports: No Symptoms Musculoskeletal: Reports: No Symptoms Skin: Reports: No Symptoms Neurological: Reports: No Symptoms Psychiatric: Reports: No Symptoms - Patient Data Vitals - Most Recent: Last Vital Signs Temp 36.7 C 07/01/17 07:54 Pulse 77 07/01/17 08:15 Resp 20 07/01/17 07:54 BP 144/49 H 07/01/17 08:15 Pulse Ox 91 L 07/01/17 07:54 Weight - Most Recent: 65.726 kg I&O - Last 24 hours: Intake & Output 06/30/17 07/01/17 07/01/17 22:59 06:59 14:59 Intake Total 2920 1987 240 Output Total 900 1900 Balance 2019 87 240 Lab Results - Last 24 hrs: Laboratory Results - last 24 hr 07/01/17 07/01/17 07/01/17 Range/Units 06:30 06:30 06:30 WBC 7.69 (3.98-10.04) K/mm3 RBC 3.58 L (3.98-5.22) M/mm3 Hgb 11.0 L (11.2-15.7) gm/L Hct 34.0 L (34.1-44.9) % MCV 95.0 H (79.4-94.8) fl MCH 30.7 (25.6-32.2) pg MCHC 32.4 (32.2-35.5) g/dl RDW Std Deviation 51.8 H (36.4-46.3) fL Plt Count 309 (182-369) K/mm3 MPV 10.1 (9.4-12.3) fl Neut % (Auto) 66.6 (34.0-71.1) % Lymph % (Auto) 13.3 L (19.3-51.7) % [place] % (Auto) 16.9 H (4.7-12.5) % Eos % (Auto) 2.0 (0.7-5.8) Baso % (Auto) 0.8 (0.1-1.2) % Neut # (Auto) 5.13 (1.56-6.13) K/mm3 Lymph # (Auto) 1.02 L (1.18-3.74) K/mm3 [place] # (Auto) 1.30 H (0.24-0.36) K/mm3 Eos # (Auto) 0.15 (0.04-0.36) K/mm3 Baso # (Auto) 0.06 (0.01-0.08) K/mm3 Manual Slide Review Abnormal smear PT 34.8 H (8.0-13.0) SECONDS INR 3.21 Sodium 141 (136-145) mEq/L Potassium 3.6 (3.5-5.1) mEq/L Chloride 110 H (98-107) mEq/L Carbon Dioxide 24 (21-32) mEq/L Anion Gap 10.6 (5-15) BUN 13 (7-18) mg/dL Creatinine 0.4 L (0.55-1.02) mg/dL Est Cr Clr Drug Dosing 89.97 mL/min Estimated GFR (MDRD) > 60 (>60) mL/min BUN/Creatinine Ratio 32.5 H (14-18) Glucose 94 (83-115) mg/dL Calcium 7.6 L (8.5-10.1) mg/dL Magnesium 1.8 (1.8-2.4) mg/dl C-Reactive Protein 14.9 H* (<1.0) mg/dL CLAY Results - Last 24 hrs: Microbiology 06/30/17 10:28 Aerobic Blood Culture - Preliminary Blood - Venous - Lab Draw NO GROWTH AFTER 1 DAY Anaerobic Blood Culture - Preliminary NO GROWTH AFTER 1 DAY 06/30/17 10:10 Aerobic Blood Culture - Preliminary Blood - Venous NO GROWTH AFTER 1 DAY Anaerobic Blood Culture - Preliminary NO GROWTH AFTER 1 DAY Med Orders - Current: Current Medications Acetaminophen (Tylenol) 650 mg PO Q4H PRN PRN Reason: Pain (Mild 1-3)/fever Last Admin: 06/29/17 21:18 Dose: 650 mg Hydrocodone Bitart/Acetaminophen ([place] 325-5 Mg) 1 tab PO Q4H PRN PRN Reason: Pain (moderate 4-6) Albuterol/Ipratropium (Duoneb 3.0-0.5 Mg/3 Ml) 3 ml NEB Q4H PRN PRN Reason: Shortness Of Breath/wheezing Artificial Tears (Isopto Tears 0.5% Ophth Soln) 0.25 ml EYEBOTH Q4H HO Last Admin: 07/01/17 09:28 Dose: 1 drop Bisacodyl (Dulcolax) 5 mg PO DAILY PRN PRN Reason: Constipation Calcium Carbonate (Calcium Carbonate/Vitamin D 1500 Mg-200 Unit) 1 tab PO BID [facility] Last Admin: 07/01/17 09:27 Dose: 1 tab Cephalexin (Keflex) 250 mg PO Q6HR [facility] Docusate Sodium (Colace) 100 mg PO BID PRN PRN Reason: Constipation Famotidine (Pepcid) 20 mg PO BID [facility] Last Admin: 07/01/17 09:27 Dose: 20 mg Guaifenesin (Mucinex) 1,200 mg PO BID [facility] Last Admin: 07/01/17 09:28 Dose: 1,200 mg Hydralazine HCl (Apresoline) 10 mg IVPUSH Q6H PRN PRN Reason: Hypertension Sodium Chloride (Normal Saline) 1,000 mls @ 125 mls/hr IV ASDIRECTED [facility] Last Admin: 07/01/17 09:30 Dose: 125 mls/hr Lorazepam (Ativan) 2 mg IVPUSH Q4H PRN PRN Reason: Seizures Metoprolol Tartrate (Lopressor) 5 mg IVPUSH Q4H PRN PRN Reason: Tachycardia Metoprolol Tartrate (Lopressor) 25 mg PO Q8H [facility] Last Admin: 07/01/17 08:15 Dose: 25 mg Metronidazole (Flagyl) 500 mg PO Q8H [facility] Last Admin: 07/01/17 09:27 Dose: 500 mg Ondansetron HCl (Zofran Odt) 4 mg PO Q6H PRN PRN Reason: nausea, able to take PO Ondansetron HCl (Zofran) 4 mg IV Q6H PRN PRN Reason: Nausea/Vomiting Phenytoin Sodium (Dilantin) 250 mg CHEW BEDTIME [facility] Last Admin: 06/30/17 22:18 Dose: 250 mg Polyethylene Glycol (Miralax) 17 gm PO DAILY PRN PRN Reason: Constipation Saccharomyces Boulardii (Florastor) 250 mg PO BID [facility] Last Admin: 07/01/17 09:27 Dose: 250 mg Senna/Docusate Sodium (Senna Plus) 1 tab PO BID PRN PRN Reason: Constipation Simvastatin (Zocor) 20 mg PO BEDTIME [facility] Last Admin: 06/30/17 22:17 Dose: 20 mg Sodium Chloride (Saline Flush) 10 ml FLUSH ASDIRECTED PRN PRN Reason: Keep Vein Open Last Admin: 06/29/17 18:11 Dose: 10 ml Vitamin B Complex/Vitamin C (Super B With Vitamin C) 1 cap PO DAILY [facility] Last Admin: 07/01/17 09:27 Dose: 1 cap Warfarin Sodium (Pharmacy To Dose - Warfarin) 0 dose .XX ASDIRECTED PRN PRN Reason: RX TO DOSE COUMADIN Warfarin Sodium (Coumadin Sliding Scale) 0 each PO ONETIME ONE Stop: 07/01/17 18:01 Discontinued Medications Ceftriaxone Sodium 1 gm/ (Sodium Chloride) 100 mls @ 200 mls/hr IV ONETIME ONE Stop: 06/29/17 18:34 Last Admin: 06/29/17 18:23 Dose: 200 mls/hr Sodium Chloride (Normal Saline) 1,000 mls @ 100 mls/hr IV ASDIRECTED [facility] Last Admin: 06/29/17 18:23 Dose: 100 mls/hr Ceftriaxone Sodium 1 gm/ (Sodium Chloride) 100 mls @ 200 mls/hr IV Q24H [facility] Last Admin: 06/30/17 17:35 Dose: 200 mls/hr Sodium Chloride (Normal Saline) 1,000 mls @ 75 mls/hr IV ASDIRECTED [facility] Stop: 07/01/17 10:19 Last Admin: 06/29/17 22:36 Dose: 75 mls/hr Potassium Chloride 10 meq/ (Premix) 100 mls @ 100 mls/hr IV Q1H [facility] Stop: 06/30/17 13:29 Last Admin: 06/30/17 14:18 Dose: 100 mls/hr Ceftriaxone Sodium 2 gm/ (Sodium Chloride) 100 mls @ 200 mls/hr IV Q24H [facility] Last Admin: 07/01/17 11:04 Dose: Not Given Ceftriaxone Sodium 2 gm/ (Sodium Chloride) 100 mls @ 200 mls/hr IV Q24H [facility] Last Admin: 07/01/17 11:00 Dose: 200 mls/hr Warfarin Sodium (Coumadin) 1.25 mg PO QPM [facility] Stop: 06/30/17 21:00 Last Admin: 06/30/17 17:39 Dose: 1.25 mg - Exam Quality Assessment: Reports: DVT Prophylaxis General: Reports: Alert, Oriented, Cooperative, No Acute Distress HEENT: Reports: Pupils Equal, Pupils Reactive, EOMI Neck: Reports: Trachea Midline, No JVD Lungs: Reports: Normal Respiratory Effort Cardiovascular: Reports: Regular Rate GI/Abdominal Exam: Normal Bowel Sounds, Soft, Non-Tender, No Organomegaly, No Distention (Female) Exam: Deferred Rectal (Female) Exam: Deferred Back Exam: Reports: Normal Inspection Extremities: Normal Inspection, Normal Range of Motion, Non-Tender, No Pedal Edema Skin: Reports: Warm Neurological: Reports: No New Focal Deficit Psy/Mental Status: Reports: Alert, Normal Affect, Normal Mood *Q Meaningful Use (DIS) - VTE *Q VTE Criteria *Q: - Stroke *Q Stroke Criteria *Q: - AMI *Q AMI Criteria *Q:
[2017-07-01 14:28] VITALS: BP 128/70
[2017-07-01] MEDS ORDERED: Warfarin Sliding Scale PO ONE (18:00)
[2017-07-02] MEDS ORDERED: Cephalexin 250 MG Cap PO SCH (12:00)
== END 2017-07-01 14:15 | DRG 699 ==
LOC: JD.ED 15:17 → JD.MS 20:09
PROVIDERS: ADMIT Internal Medicine Cardiovascular Disease; ATTEND Internal Medicine Cardiovascular Disease
DX: T83.511A Infection and inflammatory reaction due to indwelling urethral catheter, initial encounter (principal); R19.7 Diarrhea, unspecified; I48.91 Unspecified atrial fibrillation; A04.72 Enterocolitis due to Clostridium difficile, not specified as recurrent; Z86.711 Personal history of pulmonary embolism; Z68.41 Body mass index [BMI] 40.0-44.9, adult; E87.6 Hypokalemia; I10 Essential (primary) hypertension; N13.9 Obstructive and reflux uropathy, unspecified; Z93.6 Other artificial openings of urinary tract status; F32.9 Major depressive disorder, single episode, unspecified; E66.9 Obesity, unspecified; I48.0 Paroxysmal atrial fibrillation; Z79.01 Long term (current) use of anticoagulants; E34.3 Short stature due to endocrine disorder; Z86.73 Personal history of transient ischemic attack (TIA), and cerebral infarction without residual deficits; G40.909 Epilepsy, unspecified, not intractable, without status epilepticus; M48.00 Spinal stenosis, site unspecified; Z88.8 Allergy status to other drugs, medicaments and biological substances; Z91.040 Latex allergy status; Z91.018 Allergy to other foods; Z79.899 Other long term (current) drug therapy; E78.5 Hyperlipidemia, unspecified; Z87.01 Personal history of pneumonia (recurrent)
CPT/HCPCS: 36415; 51702; 71045; 80053; 81001; 83605; 85025; 86140; 87040 ×2; 87086; 87088 ×2; 87186 ×2; 87493 ×2; 87804 ×2; 96360; 96361; 96365; 99285; J0696; J7030; J7040; J7050; 80048; 83735; 85610; 87046; 89055; 94760; 97110-GP; 97161-GP; 99283; A9270; A9270-GY; J3480

== ENCOUNTER 2020-01-18 23:28 | Emergency (ER) | payer MEDICARE, MEDICAID ==
[2020-01-18 23:39] VITALS: PULSE 147
[2020-01-19] MEDS ORDERED: Sodium Chloride 0.9% 500 ML IV ONE (01:07)
[2020-01-19] MEDS ORDERED: Sodium Chloride 0.9% 1,000 ML IV ONE (01:15)
--- NOTE | 2020-01-19 01:16 | EDM.PDOC ---
ED HPI GENERAL MEDICAL PROBLEM - General Chief Complaint: Fever Stated Complaint: [facility] ambulance Time Seen by Provider: 01/19/20 00:53 Source of Information: Reports: Patient, RN Notes Reviewed History Limitations: Reports: Physical Impairment - History of Present Illness INITIAL COMMENTS - FREE TEXT/NARRATIVE: Ms. Avila is a very pleasant 74-year-old woman, a resident of [facility], with a chronic indwelling Del Toro, who is now brought to the ED by EMS for a fever, tachycardia, and hypoxemia. According to paperwork sent from the long-term, the patient felt unwell yesterday, 01/18/2020, then was found to have a fever of 104.2 degrees, tachycardia in the 130s, and an SpO2 of 85 to 87%, tonight. She was given Tylenol at the long-term prior to transfer to the ED. Upon arrival to the ED, the patient's initial vitals were 122/55 - 147 - 33 - 39.2 (102.5) - 89% on room air, however, in very short order, her BP dropped to 94/89 - 124 - 86%, then to 91/53 - 124 -87%. We are notified that the patient was tested for the SARS-CoV-2 virus on , 01/16/2020, with results still pending. The patient's PCP is Dr. Aliza Bello. Her Urologist is Dr. barry Castanon. - Related Data Allergies Allergy/AdvReac Type Severity Reaction Status Date / Time latex Allergy Rash Verified 01/18/20 23:50 tree nut Allergy Swollen Verified 01/18/20 23:50 Tongue nitrofurantoin AdvReac Sweating Verified 01/18/20 23:50 Home Meds: Home Meds Acetaminophen [Pain Relief] 650 mg PO Q4H PRN 01/19/20 [History] Alendronate Sodium [Fosamax] 70 mg PO MO 01/19/20 [History] Benzocaine/Menthol [Cepacol Sore Throat Lozenge] 1 each MM Q1H PRN 01/19/20 [History] Calcium Carbonate/Vitamin D3 [Calcium 500-Vit D3 600 Tablet] 1 tab PO DAILY 01/19/20 [History] Homatropine [Isopto-Homatropine 5% Ophth Soln] 0.25 ml EYEBOTH Q4H PRN 01/19/20 [History] Loperamide HCl [Imodium A-D] 2 mg PO TID PRN 01/19/20 [History] Metoprolol Succinate 50 mg PO DAILY 01/19/20 [History] Phenytoin Sodium Extended [Dilantin] 100 mg PO BEDTIME 01/19/20 [History] Phenytoin [Dilantin] 25 mg PO BEDTIME 01/19/20 [History] Rosuvastatin Calcium 20 mg PO DAILY 01/19/20 [History] Ubidecarenone [Coenzyme Q10] 100 mg PO DAILY 01/19/20 [History] Warfarin [Coumadin] 1.25 mg PO SUTUWETHFRSA 01/19/20 [History] Warfarin [Coumadin] 2.5 mg PO MO 01/19/20 [History] bisacodyL [Dulcolax] 10 tab PO DAILY PRN 01/19/20 [History] guaiFENesin/Dextromethorphan [Tussin Dm Liquid] 2 tsp PO Q4H PRN 01/19/20 [History] hydroCHLOROthiazide [Hydrochlorothiazide] 25 mg PO DAILY 01/19/20 [History] Past Medical History HEENT History: Reports: Impaired Vision Cardiovascular History: Reports: Afib (paroxysmal), Hypertension Respiratory History: Reports: PE Gastrointestinal History: Reports: Hemorrhoids (internal) Genitourinary History: Reports: Retention, Urinary (chronic indwelling Del Toro) Musculoskeletal History: Reports: Back Pain, Chronic (spinal stenosis), Other (See Below) (Dwarfism) Neurological History: Reports: Seizure, TIA Psychiatric History: Reports: Mood Swings Endocrine/Metabolic History: Reports: Obesity/BMI 30+ Hematologic History: Reports: Anticoagulation Therapy (coumadin) - Infectious Disease History Infectious Disease History: Reports: C-Difficile, Chicken Pox, Measles, Mumps, Rubella - Past Surgical History GI Surgical History: Reports: Colon, Colonoscopy Neurological Surgical History: Reports: Lumbar Spine (laminectomy) Musculoskeletal Surgical History: Reports: Carpal Tunnel Social & Family History - Family History Family Medical History: Noncontributory - Tobacco Use Smoking Status *Q: Never Smoker - Caffeine Use Caffeine Use: Reports: None - Recreational Drug Use Recreational Drug Use: No - Living Situation & Occupation Living situation: Reports: Extended Care Facility ([facility]) Occupation: Retired ED ROS GENERAL - Review of Systems Review Of Systems: Unable To Obtain Reason Not Obtained: Patient too lethargic to answer ED EXAM, SEPSIS - Physical Exam Exam: See Below Exam Limited By: No Limitations General Appearance: WD/WN, Lethargic, Mild Distress (states "I'm ok") Eye Exam: Bilateral Eye: EOMI, Normal Inspection Ears: Normal External Exam, Hearing Grossly Normal Nose: Normal Inspection Throat/Mouth: Normal Inspection, Normal Lips, Normal Voice, No Airway Compromise Head: Atraumatic, Normocephalic Neck: Normal Inspection, Full Range of Motion Respiratory/Chest: No Respiratory Distress, Lungs Clear, Normal Breath Sounds, No Accessory Muscle Use Cardiovascular: No Gallop, No JVD, No Murmur, No Rub, Tachycardia (regular) Peripheral Pulses: 1+: Radial (L), Radial (R) GI/Abdominal Exam: Normal Bowel Sounds, Soft, Non-Tender, No Organomegaly, No Distention, No Abnormal Bruit, No Mass (Female) Exam: Other (Del Toro catheter in place) Rectal (Female) Exam: Deferred Back: Normal Inspection, Full Range of Motion, NT Extremities: Normal Range of Motion, Normal Capillary Refill, Other (Short extremities consistent with dwarfism. All extremities are warm and well- perfused, with normal capillary refill time.) Neurological: No Motor/Sensory Deficits, Slow to Respond Skin: Warm, Dry, Intact, Normal Color, No Rash EKG INTERPRETATION EKG Date: 01/19/20 Time: 00:54 Rhythm: Other (Sinus tachycardia) Rate (Beats/Min): 124 Comins: LAD-Left Comins Deviation P-Wave: Enlarged (LAE) QRS: Other (LVH) ST-T: Normal QT: Prolonged (QTc 482) Comparison: Change From Previous EKG (QTC prolongation new since 06/17/2017) Course - Vital Signs Last Recorded V/S: Last Vital Signs Temp 39.2 C H 01/18/20 23:35 Pulse 147 H 01/18/20 23:35 Resp 33 H 01/18/20 23:35 BP 93/49 L 01/19/20 04:31 Pulse Ox 94 L 01/19/20 04:31 - Orders/Labs/Meds Orders: Active Orders 24 hr Category Date Time Status EKG Documentation Completion [RC] ASDIRECTED Care 01/19/20 00:00 Active Chest 1V Frontal [CR] Stat Exams 01/19/20 00:01 Taken CULTURE BLOOD [BC] Stat Lab 01/19/20 00:31 Received CULTURE BLOOD [BC] Stat Lab 01/19/20 00:45 Received CULTURE URINE [RM] Stat Lab 01/19/20 01:11 Received Blood Culture x2 Reflex Set [OM.PC] Stat Oth 01/18/20 23:58 Ordered EKG 12 Lead [EK] Stat Ther 01/18/20 23:58 Ordered Labs: Laboratory Tests 01/18/20 01/19/20 01/19/20 Range/Units 00:23 00:31 00:31 WBC 11.56 H (3.98-10.04) K/mm3 RBC 4.27 (3.98-5.22) M/mm3 Hgb 13.2 D (11.2-15.7) gm/dl Hct 40.0 (34.1-44.9) % MCV 93.7 (79.4-94.8) fl MCH 30.9 (25.6-32.2) pg MCHC 33.0 (32.2-35.5) g/dl RDW Std Deviation 47.5 H (36.4-46.3) fL Plt Count 200 D (182-369) K/mm3 MPV 10.5 (9.4-12.3) fl Neutrophils % (Manual) 94 H (40-60) % Band Neutrophils % 0 (0-10) % Lymphocytes % (Manual) 5 L (20-40) % Atypical Lymphs % 0 % Monocytes % (Manual) 1 L (2-10) % Eosinophils % (Manual) 0 L (0.7-5.8) % Basophils % (Manual) 0 L (0.1-1.2) Platelet Estimate Adequate RBC Morph Comment Normal PT 23.0 H (9.7-11.7) SECONDS INR 2.18 Puncture Site ABG pH (7.35-7.45) ABG pCO2 (35.0-45.0) mmHg ABG pO2 (80.0-100.0) mmHg ABG HCO3 (22.0-26.0) meq/L ABG O2 Saturation (96.0-97.0) % ABG Base Excess (-2-2.0) A-a Gradient mmHg O2 Delivery Device Oxygen Flow Rate FiO2 (21.00-100.00) % Sodium (136-145) mEq/L Potassium (3.5-5.1) mEq/L Chloride (98-107) mEq/L Carbon Dioxide (21-32) mEq/L Anion Gap (5-15) BUN (7-18) mg/dL Creatinine (0.55-1.02) mg/dL Est Cr Clr Drug Dosing mL/min Estimated GFR (MDRD) (>60) mL/min BUN/Creatinine Ratio (14-18) Glucose (83-115) mg/dL Lactic Acid (0.4-2.0) mmol/L Calcium (8.5-10.1) mg/dL Magnesium (1.8-2.4) mg/dl Ferritin (8-252) ng/ml Total Bilirubin (0.2-1.0) mg/dL AST (15-37) U/L ALT (14-59) U/L Alkaline Phosphatase (46-116) U/L Lactate Dehydrogenase (81-234) U/L Creatine Kinase (26-192) U/L Troponin I (0.00-0.056) ng/mL C-Reactive Protein (<1.0) mg/dL Total Protein (6.4-8.2) g/dl Albumin (3.4-5.0) g/dl Globulin gm/dL Albumin/Globulin Ratio (1-2) SARS-CoV-2 RNA (LORAINE) Negative (NEGATIVE) 01/19/20 01/19/20 01/19/20 Range/Units 00:31 00:31 00:31 WBC (3.98-10.04) K/mm3 RBC (3.98-5.22) M/mm3 Hgb (11.2-15.7) gm/dl Hct (34.1-44.9) % MCV (79.4-94.8) fl MCH (25.6-32.2) pg MCHC (32.2-35.5) g/dl RDW Std Deviation (36.4-46.3) fL Plt Count (182-369) K/mm3 MPV (9.4-12.3) fl Neutrophils % (Manual) (40-60) % Band Neutrophils % (0-10) % Lymphocytes % (Manual) (20-40) % Atypical Lymphs % % Monocytes % (Manual) (2-10) % Eosinophils % (Manual) (0.7-5.8) % Basophils % (Manual) (0.1-1.2) Platelet Estimate RBC Morph Comment PT (9.7-11.7) SECONDS INR Puncture Site ABG pH (7.35-7.45) ABG pCO2 (35.0-45.0) mmHg ABG pO2 (80.0-100.0) mmHg ABG HCO3 (22.0-26.0) meq/L ABG O2 Saturation (96.0-97.0) % ABG Base Excess (-2-2.0) A-a Gradient mmHg O2 Delivery Device Oxygen Flow Rate FiO2 (21.00-100.00) % Sodium 136 (136-145) mEq/L Potassium 3.0 L (3.5-5.1) mEq/L Chloride 100 (98-107) mEq/L Carbon Dioxide 24 (21-32) mEq/L Anion Gap 15.0 (5-15) BUN 38 H D (7-18) mg/dL Creatinine 1.4 H (0.55-1.02) mg/dL Est Cr Clr Drug Dosing 24.94 mL/min Estimated GFR (MDRD) 37 (>60) mL/min BUN/Creatinine Ratio 27.1 H (14-18) Glucose 121 H (83-115) mg/dL Lactic Acid 3.1 H* (0.4-2.0) mmol/L Calcium 8.6 (8.5-10.1) mg/dL Magnesium 1.7 L (1.8-2.4) mg/dl Ferritin (8-252) ng/ml Total Bilirubin 0.5 (0.2-1.0) mg/dL AST 83 H (15-37) U/L ALT 51 (14-59) U/L Alkaline Phosphatase 164 H (46-116) U/L Lactate Dehydrogenase 336 H (81-234) U/L Creatine Kinase 128 (26-192) U/L Troponin I 0.307 H* (0.00-0.056) ng/mL C-Reactive Protein 29.5 H* (<1.0) mg/dL Total Protein 6.1 L (6.4-8.2) g/dl Albumin 2.6 L (3.4-5.0) g/dl Globulin 3.5 gm/dL Albumin/Globulin Ratio 0.7 L (1-2) SARS-CoV-2 RNA (LORAINE) (NEGATIVE) 01/19/20 01/19/20 01/19/20 Range/Units 00:31 01:40 03:32 WBC (3.98-10.04) K/mm3 RBC (3.98-5.22) M/mm3 Hgb (11.2-15.7) gm/dl Hct (34.1-44.9) % MCV (79.4-94.8) fl MCH (25.6-32.2) pg MCHC (32.2-35.5) g/dl RDW Std Deviation (36.4-46.3) fL Plt Count (182-369) K/mm3 MPV (9.4-12.3) fl Neutrophils % (Manual) (40-60) % Band Neutrophils % (0-10) % Lymphocytes % (Manual) (20-40) % Atypical Lymphs % % Monocytes % (Manual) (2-10) % Eosinophils % (Manual) (0.7-5.8) % Basophils % (Manual) (0.1-1.2) Platelet Estimate RBC Morph Comment PT (9.7-11.7) SECONDS INR Puncture Site Lt radial ABG pH 7.50 H (7.35-7.45) ABG pCO2 31.6 L (35.0-45.0) mmHg ABG pO2 73.0 L (80.0-100.0) mmHg ABG HCO3 24.7 (22.0-26.0) meq/L ABG O2 Saturation 94.5 L (96.0-97.0) % ABG Base Excess 2.6 H (-2-2.0) A-a Gradient 87 mmHg O2 Delivery Device Nasal cannula Oxygen Flow Rate 2.0 FiO2 28.00 (21.00-100.00) % Sodium (136-145) mEq/L Potassium (3.5-5.1) mEq/L Chloride (98-107) mEq/L Carbon Dioxide (21-32) mEq/L Anion Gap (5-15) BUN (7-18) mg/dL Creatinine (0.55-1.02) mg/dL Est Cr Clr Drug Dosing mL/min Estimated GFR (MDRD) (>60) mL/min BUN/Creatinine Ratio (14-18) Glucose (83-115) mg/dL Lactic Acid 1.7 (0.4-2.0) mmol/L Calcium (8.5-10.1) mg/dL Magnesium (1.8-2.4) mg/dl Ferritin 209 (8-252) ng/ml Total Bilirubin (0.2-1.0) mg/dL AST (15-37) U/L ALT (14-59) U/L Alkaline Phosphatase (46-116) U/L Lactate Dehydrogenase (81-234) U/L Creatine Kinase (26-192) U/L Troponin I (0.00-0.056) ng/mL C-Reactive Protein (<1.0) mg/dL Total Protein (6.4-8.2) g/dl Albumin (3.4-5.0) g/dl Globulin gm/dL Albumin/Globulin Ratio (1-2) SARS-CoV-2 RNA (LORAINE) (NEGATIVE) 01/19/20 Range/Units 04:27 WBC (3.98-10.04) K/mm3 RBC (3.98-5.22) M/mm3 Hgb (11.2-15.7) gm/dl Hct (34.1-44.9) % MCV (79.4-94.8) fl MCH (25.6-32.2) pg MCHC (32.2-35.5) g/dl RDW Std Deviation (36.4-46.3) fL Plt Count (182-369) K/mm3 MPV (9.4-12.3) fl Neutrophils % (Manual) (40-60) % Band Neutrophils % (0-10) % Lymphocytes % (Manual) (20-40) % Atypical Lymphs % % Monocytes % (Manual) (2-10) % Eosinophils % (Manual) (0.7-5.8) % Basophils % (Manual) (0.1-1.2) Platelet Estimate RBC Morph Comment PT (9.7-11.7) SECONDS INR Puncture Site ABG pH (7.35-7.45) ABG pCO2 (35.0-45.0) mmHg ABG pO2 (80.0-100.0) mmHg ABG HCO3 (22.0-26.0) meq/L ABG O2 Saturation (96.0-97.0) % ABG Base Excess (-2-2.0) A-a Gradient mmHg O2 Delivery Device Oxygen Flow Rate FiO2 (21.00-100.00) % Sodium (136-145) mEq/L Potassium (3.5-5.1) mEq/L Chloride (98-107) mEq/L Carbon Dioxide (21-32) mEq/L Anion Gap (5-15) BUN (7-18) mg/dL Creatinine (0.55-1.02) mg/dL Est Cr Clr Drug Dosing mL/min Estimated GFR (MDRD) (>60) mL/min BUN/Creatinine Ratio (14-18) Glucose (83-115) mg/dL Lactic Acid (0.4-2.0) mmol/L Calcium (8.5-10.1) mg/dL Magnesium (1.8-2.4) mg/dl Ferritin (8-252) ng/ml Total Bilirubin (0.2-1.0) mg/dL AST (15-37) U/L ALT (14-59) U/L Alkaline Phosphatase (46-116) U/L Lactate Dehydrogenase (81-234) U/L Creatine Kinase (26-192) U/L Troponin I 0.487 H* (0.00-0.056) ng/mL C-Reactive Protein (<1.0) mg/dL Total Protein (6.4-8.2) g/dl Albumin (3.4-5.0) g/dl Globulin gm/dL Albumin/Globulin Ratio (1-2) SARS-CoV-2 RNA (LORAINE) (NEGATIVE) Meds: Medications Discontinued Medications Generic Name Dose Route Start Last Admin Trade Name Freq PRN Reason Stop Dose Admin Sodium Chloride 1,000 mls @ 999 mls/hr 01/19/20 01:15 01/19/20 01:35 Normal Saline IV 01/19/20 02:15 999 mls/hr ONETIME ONE Administration Vancomycin HCl 1 gm/ Sodium 250 mls @ 250 mls/hr 01/19/20 01:19 Chloride IV 01/19/20 02:18 ONETIME STA Piperacillin Sod/Tazobactam 100 mls @ 200 mls/hr 01/19/20 01:22 01/19/20 01:38 Sod 4.5 gm/ Sodium Chloride IV 01/19/20 01:51 200 mls/hr ONETIME ONE Administration Levofloxacin/Dextrose 750 mg/ 150 mls @ 100 mls/hr 01/19/20 01:23 01/19/20 02:09 Premix IV 01/19/20 02:52 100 mls/hr ONETIME STA Administration Vancomycin HCl 1 gm/ Sodium 250 mls @ 250 mls/hr 01/19/20 02:26 01/19/20 03:38 Chloride IV 01/19/20 03:25 250 mls/hr ONETIME ONE Administration Sodium Chloride 900 mls @ 999 mls/hr 01/19/20 02:44 01/19/20 03:01 Normal Saline IV 01/19/20 03:38 999 mls/hr ONETIME ONE Administration Sodium Chloride 900 mls @ 999 mls/hr 01/19/20 02:44 01/19/20 03:14 Normal Saline IV 01/19/20 03:38 Not Given ONETIME ONE Magnesium Sulfate 2 gm in 50 mls @ 25 mls/hr 01/19/20 03:00 01/19/20 04:25 Magnesium Sulfate In Water Premix IV 01/19/20 04:59 25 mls/hr ONETIME ONE Administration Potassium Chloride 40 meq 01/19/20 02:43 01/19/20 03:01 Klor-Con M20 PO 01/19/20 02:44 40 meq ONETIME ONE Administration - Re-Assessments/Exams Free Text/Narrative Re-Assessment/Exam: 01/19/20 01:10 As above, the patient is sent from [facility] after feeling unwell yesterday, 01/18/2020, then being found to have a fever of 104.2 degrees tonight, along with tachycardia in the 130s, and hypoxemia of 85 to 87% on room air. She was initially tachycardic, but not hypotensive in the ED, ho wever, her BP has since decreased to 91/50, with a HR of 123 bpm, and an oxygen saturation of 87% on room air. A work-up, at triage, includes blood work, 2 sets of blood cultures, a portable chest x-ray, and ECG, and a swab for the SARS-CoV-2 virus. A urinalysis was originally ordered, however, the patient has a chronic indwelling Del Toro, which will render interpretation meaningless. I have ordered a urine culture. I have also ordered a 1 L bolus of NS, and will start the patient on empiric antibiotics including vancomycin, Zosyn, and Levaquin. 2 L of oxygen per nasal cannula will be placed, and I will order an ABG. 01/19/20 02:41 Portable chest radiograph reviewed. The cardiac silhouette is within normal limits. Mild pulmonary vascular congestion, however, this may be artifact due to poor inspiratory effort. No pleural effusions seen on this AP view. No focal infiltrate. No pneumothorax. Formal read per the Radiologist pending. The patient's CBC is remarkable for WBC count mildly elevated at 11.56, but with 0% bandemia, and the remainder of her CBC being unremarkable. Her CMP is remarkable for a potassium depressed at 3.0, a BUN/Cr elevated at 38/1.4, and a blood glucose elevated at 121. Her AST is slightly elevated at 83, with an ALT normal at 51. Her alkaline phosphatase is mildly elevated at 164, with the remainder of her CMP being unremarkable. Her magnesium level is slightly depressed at 1.7. Her lactic acid level is elevated at 3.1. Her troponin is elevated at 0.307. Her INR is therapeutic at 2.18. Her CRP is significantly elevated at 29.5. Her ferritin is within normal limits at 209. Her LDH is mildly elevated at 336. Her CPK is within normal limits at 128. Her ABG represents a combined acute/uncompensated primary respiratory alkalosis with non-anion gap metabolic alkalosis. Her swab for the SARS-CoV-2 virus has returned negative. Based on the above, I have ordered 40 mEq of oral KCl and a 2 g Mg-rider. Her first liter of IV fluid has finished infusing, therefore I have ordered an additional 900 mL bolus of NS, to complete a 30 ml/kg bolus. I have ordered a second lactic acid level to be drawn at 03:30. At present, the patient's BP is 77/48 with a HR of 140 bpm, and an oxygen saturation of 93% on 2 L of oxygen per nasal cannula. 01/19/20 05:02 The patient's repeat lactic acid level is down to 1.7. Her repeat troponin is up to 0.487. The patient's 1900 mL fluid bolus has finished infusing. Her current BP is 83/54, with a HR of 139 bpm, and an oxygen saturation of 95% on 2 L of oxygen per nasal cannula. He is on this, I will start the patient on a low-dose of norepinephrine. As we are currently on full diversion, we will need to transfer the patient to a higher level of care. 01/19/20 05:19 Case discussed with Ambreen at [facility] at 05:09. Case then discussed with Dr. Blas, Envelope Stuffer at [facility], at 05:15. She agreed that the patient is likely suffering from septic shock, with the elevated troponins a consequence of her hypotension. She accepted the patient for direct admission to their ICU. She recommended that we continue NS at 100 ml/hr. The patient will be transported by ground ambulance. 01/19/20 05:44 I have pushed the patient's portable chest x-ray image to [facility]. Departure - Departure Time of Disposition: 05:21 Disposition: DC/Tfer to [facility] 02 Condition: Serious Clinical Impression: Septic shock, Elevated troponin, Renal insufficiency, Hypomagnesemia, Hypokalemia - Discharge Information *PRESCRIPTION DRUG MONITORING PROGRAM REVIEWED*: Not Applicable *COPY OF PRESCRIPTION DRUG MONITORING REPORT IN PATIENT LIOR: Not Applicable Referrals: Aliza Bello MD [Primary Care Provider] - Barry Castanon MD [Ordering Only Provider] - Forms: ED Department Discharge Sepsis Event Note (ED) - Evaluation Sepsis Screening Result: Possible Sepsis Risk - Focused Exam Vital Signs: Vital Signs Temp Pulse Resp BP Pulse Ox 01/19/20 04:31 93/49 L 94 L 01/18/20 23:35 39.2 C H 147 H 33 H 122/55 L 89 L - My Orders Last 24 Hours: My Active Orders 01/18/20 23:58 Blood Culture x2 Reflex Set [OM.PC] Stat EKG 12 Lead [EK] Stat 01/19/20 00:00 EKG Documentation Completion [RC] ASDIRECTED 01/19/20 00:01 Chest 1V Frontal [CR] Stat 01/19/20 00:31 CULTURE BLOOD [BC] Stat 01/19/20 00:45 CULTURE BLOOD [BC] Stat 01/19/20 01:11 CULTURE URINE [RM] Stat - Assessment/Plan Last 24 Hours: My Active Orders 01/18/20 23:58 Blood Culture x2 Reflex Set [OM.PC] Stat EKG 12 Lead [EK] Stat 01/19/20 00:00 EKG Documentation Completion [RC] ASDIRECTED 01/19/20 00:01 Chest 1V Frontal [CR] Stat 01/19/20 00:31 CULTURE BLOOD [BC] Stat 01/19/20 00:45 CULTURE BLOOD [BC] Stat 01/19/20 01:11 CULTURE URINE [RM] Stat
[2020-01-19] MEDS ORDERED: Piperacillin/Tazobactam 4.5 GM in Sodium Chloride 0.9% 100 ML IV ONE (01:22)
[2020-01-19] MEDS ORDERED: Levofloxacin/Dextrose 5%-Water 750 MG in Premix Bag 1 BAG IV STA (01:23)
[2020-01-19] MEDS ORDERED: Potassium Chloride 20 MEQ Tab.ER PO ONE (02:43)
[2020-01-19] MEDS ORDERED: Magnesium Sulfate/Water 2 GM/50 ML Premix Bag IV STA (02:43)
[2020-01-19] MEDS ORDERED: Sodium Chloride 0.9% 900 ML IV ONE ×2 (02:44)
[2020-01-19] MEDS ORDERED: Magnesium Sulfate/Water 2 GM/50 ML BAG IV ONE (03:00)
[2020-01-19] MEDS ORDERED: Norepinephrine 4 MG in Dextrose 5% in Water 246 ML IV SCH ×2 (05:15)
[2020-01-19] MEDS ORDERED: Sodium Chloride 0.9% 1,000 ML IV SCH (05:30)
[2020-01-19 06:33] VITALS: BP 108/72
--- NOTE | 2020-01-19 11:25 | CR ---
Chest: Portable view of the chest was obtained. Comparison: Prior chest x-ray of 06/29/17. Heart is slightly enlarged. Upper mediastinum is stable. Lungs show no acute parenchymal change. Bony structures are grossly intact. Impression: 1. Nothing acute is definitely appreciated. 2. Slightly prominent heart size. Diagnostic code #2 Study was dictated in MDT
== END 2020-01-19 06:05 ==
LOC: JD.ED 23:28
DX: A41.9 Sepsis, unspecified organism (principal); R65.21 Severe sepsis with septic shock; R79.89 Other specified abnormal findings of blood chemistry; N28.9 Disorder of kidney and ureter, unspecified; E83.42 Hypomagnesemia; E87.6 Hypokalemia; I48.0 Paroxysmal atrial fibrillation; I10 Essential (primary) hypertension; E66.9 Obesity, unspecified; Z91.040 Latex allergy status; Z91.018 Allergy to other foods; Z88.1 Allergy status to other antibiotic agents; Z68.41 Body mass index [BMI] 40.0-44.9, adult; Z79.899 Other long term (current) drug therapy; Z11.59 Encounter for screening for other viral diseases
CPT/HCPCS: 36415; 36600; 71045; 80053; 82550; 82728; 82803; 83605; 83615; 83735; 84484; 85007; 85027; 85610; 86140; 87040; 87077; 87086; 87184; 87186; 93005; 96361; 96365; 96367; 99285; A9270; J1956; J2543; J3370; J3475; J7030; J7050; J7060; U0002; 87088; 93010